=== PATIENT | female | born 1945 | race Caucasian/White ===

== ENCOUNTER → 2018-04-14 16:31 | Outpatient (CLI) | payer MEDICARE, OTHER, SELFPAY | PROVIDERS: PCP Emergency Medicine; Visit Provider Emergency Medicine | DX: R01.1 Cardiac murmur, unspecified (principal) | CPT/HCPCS: 93225; 93226 ==

== ENCOUNTER → 2018-04-24 07:31 | Outpatient (CLI) | payer MEDICARE, OTHER, SELFPAY ==
--- NOTE | 2018-04-24 07:32 | CA_ITS ---
PROCEDURE: 2-D M-mode and color Doppler study INDICATIONS FOR THE TEST: Chest pain COPD Heart MurmurX Tobacco Smoking Palpitations Fatigue Syncope Edema HypertensionXDiabetes Mellitus Rheumatic Fever SOB ARROYO Obesity Hyperlipidemia Family History HD Additional History PATIENT INFORMATION HEIGHT: 59 WEIGHT:163 GENDER: Female B/P:160/100 2-D/M-MODE INTERPRETATION: 2-D MEASUREMENTS OBSERVED VALUES IN CMS Right Ventricular Dimension (RVDd) 2.2 Interventricular Septum (Thickness)(IVsd) .7 Left Ventricular Internal Dimensions(LVIDd) 5.1 Left Ventricular Posterior Wall (Thickness)(LVPWd) .9 Aortic Root 2.6 Aortic Cusp Separation 1.7 Left Atrial Dimensions (LAD) 3.0 2D 1. Left atrium is mildly enlarged, left ventricle is normal size, mild qualitative concentric left ventricular hypertrophy, visually estimated ejection fraction 55% with no regional wall motion abnormality. 2. The right atrium and right ventricle are mildly enlarged with normal contractility. 3. The aortic valve is minimally thickened and fibrosed. 4. The mitral and tricuspid valvular grossly normal. 5. The pulmonic valve is poorly visualized. 6. No significant pericardial effusion noted. DOPPLER INTERROGATION: Doppler interrogation of the aortic, mitral and tricuspid valvular presence of mild mitral and tricuspid regurgitation, calculated right ventricular systolic pressure is 46 mmHg consistent with moderate pulmonary hypertension, grade 1 diastolic dysfunction seen with tissue Doppler evidence of raised left atrial pressure. CONCLUSION: 1. Mildly enlarged left atrium, normal left ventricular size, mild concentric left ventricular hypertrophy, visually estimated ejection fraction 55% with no regional wall motion abnormality, grade 1 diastolic dysfunction seen with tissue Doppler evidence of raised left atrial pressure. 2. Mild mitral and tricuspid regurgitation 3. No significant pericardial effusion noted.
--- NOTE | 2018-04-24 07:32 | CI_ITS ---
Cerebrovascular Exam Indications: 785.9 Bruit. IMPRESSIONS 1. The bilateral vertebral arteries are patent with normal antegrade flow. 2. Study suggests less than 20% stenosis involving the right internal carotid artery and the left internal carotid artery. 3. Tortuous carotid arteries seen bilaterally. History: Risk factors: Hypertension. Carotid duplex study. Complete study and Doppler flow study including spectral analysis, color and menchaca scale imaging. Location: Vascular laboratory. Patient status: Outpatient. Tables: Arterial flow: + +--------+--------+ Location V sys V ed + +--------+--------+ Right CCA - proximal 87.2cm/s 15.7cm/s + +--------+--------+ Right CCA - distal 54.2cm/s 17.3cm/s + +--------+--------+ Right ECA 66cm/s -------- + +--------+--------+ Right ICA - proximal 44.8cm/s 18.9cm/s + +--------+--------+ Right ICA - mid 59.7cm/s 25.1cm/s + +--------+--------+ Right ICA - distal 82.5cm/s 31.4cm/s + +--------+--------+ Right vertebral 40.9cm/s -------- + +--------+--------+ Left CCA - proximal 62.9cm/s 14.9cm/s + +--------+--------+ Left CCA - distal 49.5cm/s 18.1cm/s + +--------+--------+ Left ECA 72.3cm/s -------- + +--------+--------+ Left ICA - proximal 43.2cm/s 11.8cm/s + +--------+--------+ Left ICA - mid 69.9cm/s 21.2cm/s + +--------+--------+ Left ICA - distal 78.6cm/s 26.7cm/s + +--------+--------+ Left vertebral 43.2cm/s -------- + +--------+--------+ Velocity ratios: + + + + + + Right, V sys Right, V ed Left, V sys Left, V ed + + + + + + Max ICA/dist CCA 1.52 1.82 1.59 1.48 + + + + + + (Report amended ) Electronically signed by: Db Chakraborty [id number]
--- NOTE | 2018-04-24 07:32 | US_ITS ---
US gallbladder HISTORY: Upper abdominal pain ITS.REASON: abdominal pain ORDERING PHYSICIAN: Godwin Grajeda MD PATIENT AGE: 72 years Comparison: None FINDINGS: PANCREAS: Unremarkable. No obvious mass or abnormal fluid collection. No ductal dilatation LIVER: No focal liver lesions demonstrated. Homogeneous echogenicity. No intrahepatic biliary ductal dilatation evident RIGHT KIDNEY: Unremarkable. Normal size and echogenicity. No hydronephrosis GALLBLADDER: No gallstones, gallbladder wall thickening, pericholecystic fluid, or biliary dilatation. There are some low-level echoes in the gallbladder which could be due to small amount sludge or concentrated bile IMPRESSION: Few echoes within the gallbladder consistent with sludge or concentrated bile of questionable clinical significance otherwise Negative gallbladder/right upper quadrant ultrasound
== END ==
PROVIDERS: PCP Emergency Medicine; Visit Provider Emergency Medicine
DX: R09.89 Other specified symptoms and signs involving the circulatory and respiratory systems (principal); R10.9 Unspecified abdominal pain; R01.1 Cardiac murmur, unspecified
CPT/HCPCS: 76705; 93306; 93880

== ENCOUNTER → 2018-05-11 11:34 | Outpatient (CLI) | payer MEDICARE, OTHER, SELFPAY ==
--- NOTE | 2018-05-11 11:38 | NM_ITS ---
History and Indications: Hypertension, shortness of breath, syncope fatigue and abnormal EKG Procedure: Patient received a 0.4 mg of intravenous Lexiscan, resting heart rate was 55 bpm resting blood pressure 189/97, with Lexiscan maximum heart rate achieved was 102 bpm which is less than 85% of the maximum predicted heart rate and a blood pressure was 106/58. With Lexiscan patient complained of nausea and headache, lightheadedness requiring intravenous Aminophyllin to reverse symptoms. Electrocardiogram: Resting electrocardiogram showed sinus bradycardia, with Lexiscan there is less than 1.[address] segment depression noted from the baseline EKG. The EKG portion of the Lexiscan Myoview is nondiagnostic. Cardiac stress and resting SPECT images: Cardiac stress and rest SPECT images were obtained using technetium 99 Myoview 30.1 mCi stress and 10.3 mCi at rest. Gated SPECT further analysis of segmental wall motion and calculation of the ejection fraction also done. Cardiac stress and rest SPECT images show uniform myocardial activity without segmental perfusion abnormality, computer derived ejection fraction is over 65% with no regional wall motion abnormality, right ventricle is normal. Conclusion: 1. The EKG portion of the Lexiscan Myoview is nondiagnostic. 2. No scintigraphic evidence of reversible ischemia seen, computer derived ejection fraction is over 65% with no regional wall motion abnormality, right ventricle is normal size and contractility. 3. Normal Lexiscan Myoview study.
--- NOTE | 2018-05-11 11:38 | CT_ITS ---
CT heart w calcium score INDICATION: ITS.REASON: htn ORDERING PHYSICIAN: Jose Manuel Tijerina MD PATIENT AGE: 73 years COMPARISON: None TECHNIQUE: Axial images are obtained without contrast. Sagittal and coronal reformatted images are reviewed as well. All CT scans at the facility use one or more dose reduction, viz: automated exposure control, ma/kV adjustment per patient size (including targeted exams where dose is matched to indication, i.e. head), or iterative reconstruction technique. FINDINGS: Coronary artery calcium score is 17 indicating a mild plaque burden with moderate cardiovascular disease risk. There is minimal thickening of the pericardium. IMPRESSION: Coronary artery calcium score is 17 indicating a mild plaque burden with moderate cardiovascular disease risk
--- NOTE | 2018-05-11 15:03 | HMH.ITSHM ---
Current Home Medications as stated by this patient Cristine Tracy or pharmaceutical sales representative. []ASA LEVOTHYROXINE LOSARTAN
== END ==
PROVIDERS: PCP Emergency Medicine; Visit Provider Internal Medicine
DX: I27.20 Pulmonary hypertension, unspecified (principal); R06.09 Other forms of dyspnea; R53.83 Other fatigue; R94.31 Abnormal electrocardiogram [ECG] [EKG]; R09.89 Other specified symptoms and signs involving the circulatory and respiratory systems
CPT/HCPCS: 75571; 78452; 93017; A9502; J2785

== ENCOUNTER → 2018-08-08 07:28 | Outpatient (CLI) | payer MEDICARE, OTHER, SELFPAY ==
[2018-08-09 07:48] LABS: Basophils # 0.1 K/mm3 (0-0.2); Basophils % 1.1 % (0.1-2.0); Eosinophils # 0.1 K/mm3 (0.0-0.4); Eosinophils % 2.2 % (0.1-12.0); Hematocrit 46.3 % (37.0-47.0); Hemoglobin 14.4 g/dL (12.2-16.2); Lymphocytes # 2.3 K/mm3 (0.7-4.5); Lymphocytes % 37.7 % (10-50); Mean Corpuscular HGB Conc 31.1 g/dL (31.8-35.4); Mean Corpuscular Hemoglobin 30.1 pg (27.0-31.2); Mean Corpuscular Volume 96.8 fl (81-99); Mean Platelet Volume 9.5 fl (7.4-10.4); Monocytes # 0.4 K/mm3 (0.1-1.0); Monocytes % 5.9 % (1.7-9.3); Neutrophils # 3.2 K/mm3 (1.8-7.8); Neutrophils % 53.1 % (37.0-80.0); Platelet Count 322 K/mm3 (142-424); Red Blood Count 4.79 M/mm3 (4.20-5.40); Red Cell Distribution Width 13.2 % (11.5-17.5); White Blood Count 6.1 K/mm3 (4.8-10.8)
[2018-08-09 08:08] LABS: Alanine Aminotransferase 32 U/L (12-78); Albumin Level 4.1 gm/dL (3.4-5.0); Albumin/Globulin Ratio 1.1 (1.1-1.8); Alkaline Phosphatase 107 U/L (46-116); Anion Gap 12.4 mEq/L (5-15); Aspartate Amino Transferase 21 U/L (15-37); Bilirubin,Total 0.5 mg/dL (0.2-1.0); Blood Urea Nitrogen 24 mg/dL (7-18); Calcium 10.6 mg/dL (8.5-10.1); Carbon Dioxide 31 mmol/L (21.0-32.0); Chloride 102 mmol/L (98-107); Chol/HDL Ratio 3.4 (1-3.5); Cholesterol 182 mg/dL (140-200); Estimated Glomerular Filt Rate 82 ml/min (>60); Free T4 (Free Thyroxine) 1.33 ng/dl (0.76-1.46); GFR (African American) 100 ML/MIN (>60); Globulin 3.6 gm/dl (1.3-3.2); Glucose 98 mg/dL (74-106); HDL Cholesterol 53 mg/dL (29-89); LDL Cholesterol 112 mg/dL (0-130); Potassium 4.4 mmoL/L (3.5-5.1); Sodium 141 mmol/L (136-145); Thyroid Stimulating Hormone 1.07 uIU/ml (0.358-3.740); Total Protein,Serum 7.7 gm/dL (6.4-8.2); Triglycerides 85 mg/dL (30-200); VLDL Cholesterol 17 mg/dL (0-40)
== END ==
PROVIDERS: Visit Provider Emergency Medicine
DX: I10 Essential (primary) hypertension (principal)
CPT/HCPCS: 80053; 80061; 84439; 84443; 85025

== ENCOUNTER → 2019-05-14 13:27 | Outpatient (CLI) | payer MEDICARE, OTHER, SELFPAY ==
[2019-05-14 14:00] LABS: Alanine Aminotransferase 32 U/L (12-78); Albumin Level 3.7 gm/dL (3.4-5.0); Albumin/Globulin Ratio 1.1 (1.1-1.8); Alkaline Phosphatase 99 U/L (46-116); Anion Gap 10.8 mEq/L (5-15); Aspartate Amino Transferase 29 U/L (15-37); Bilirubin,Total 0.5 mg/dL (0.2-1.0); Blood Urea Nitrogen 22 mg/dL (7-18); Calcium 10.3 mg/dL (8.5-10.1); Carbon Dioxide 29 mmol/L (21.0-32.0); Chloride 103 mmol/L (98-107); Cholesterol 168 mg/dL (140-200); Creatinine,Serum 0.66 mg/dL (0.55-1.02); Estimated Glomerular Filt Rate 88 ml/min (>60); GFR (African American) 106 ML/MIN (>60); Globulin 3.5 gm/dl (1.3-3.2); Glucose 91 mg/dL (74-106); HDL Cholesterol 56 mg/dL (29-89); LDL Cholesterol 98 mg/dL (0-130); Potassium 3.8 mmoL/L (3.5-5.1); Sodium 139 mmol/L (136-145); T4 (Thyroxine) 9.2 ug/dl (4.7-13.3); Thyroid Stimulating Hormone 1.23 uIU/ml (0.358-3.740); Total Protein,Serum 7.2 gm/dL (6.4-8.2); Triglycerides 69 mg/dL (30-200); VLDL Cholesterol 14 mg/dL (0-40)
[2019-05-14 14:31] LABS: Basophils # 0.1 K/mm3 (0-0.2); Basophils % 0.7 % (0.1-2.0); Eosinophils # 0.1 K/mm3 (0.0-0.4); Eosinophils % 2.3 % (0.1-12.0); Hematocrit 43.3 % (37.0-47.0); Lymphocytes # 2.4 K/mm3 (0.7-4.5); Lymphocytes % 38.8 % (10-50); Mean Corpuscular HGB Conc 32.3 g/dL (31.8-35.4); Mean Corpuscular Hemoglobin 30.8 pg (27.0-31.2); Mean Corpuscular Volume 95.1 fl (81-99); Mean Platelet Volume 9.2 fl (7.4-10.4); Monocytes # 0.4 K/mm3 (0.1-1.0); Monocytes % 6.9 % (1.7-9.3); Neutrophils # 3.2 K/mm3 (1.8-7.8); Neutrophils % 51.3 % (37.0-80.0); Platelet Count 292 K/mm3 (142-424); Red Blood Count 4.55 M/mm3 (4.20-5.40); Red Cell Distribution Width 12.8 % (11.5-17.5); White Blood Count 6.3 K/mm3 (4.8-10.8)
== END ==
PROVIDERS: Visit Provider Emergency Medicine
DX: E07.9 Disorder of thyroid, unspecified (principal); I10 Essential (primary) hypertension; E66.9 Obesity, unspecified; M25.511 Pain in right shoulder
CPT/HCPCS: 80053; 80061; 84436; 84443; 85025

== ENCOUNTER → 2019-11-22 15:46 | Outpatient (CLI) | payer MEDICARE, OTHER, SELFPAY ==
[2019-11-22 16:06] LABS: Anion Gap 9.8 mEq/L (5-15); Blood Urea Nitrogen 23 mg/dl (7-17); Calcium 11.2 mg/dl (8.4-10.2); Carbon Dioxide 30 mmol/L (22.0-30.0); Chloride 103 mmol/L (98-107); Estimated Glomerular Filt Rate 82 ml/min (>60); GFR (African American) 99 ML/MIN (>60); Glucose 100 mg/dl (74-100); Potassium 4.8 mmoL/L (3.5-5.1); Sodium 138 mmol/L (136-145)
== END ==
PROVIDERS: Visit Provider Urology
DX: I10 Essential (primary) hypertension (principal); R25.2 Cramp and spasm
CPT/HCPCS: 80048

== ENCOUNTER → 2020-10-28 13:46 | Outpatient (CLI) | payer MEDICARE, SELFPAY ==
[2020-10-28 13:59] LABS: Chloride 102 mmol/L (98-107); Potassium 4.3 mmoL/L (3.5-5.1)
[2020-10-28 14:01] LABS: Alanine Aminotransferase 24 U/L (12-78); Aspartate Amino Transferase 36 U/L (14-36); Blood Urea Nitrogen 28 mg/dl (7-17); Carbon Dioxide 28 mmol/L (22.0-30.0); Estimated Glomerular Filt Rate 61 ml/min (>60); GFR (African American) 74 ML/MIN (>60)
[2020-10-28 14:02] LABS: Albumin Level 4.9 g/dl (3.5-5.0); Albumin/Globulin Ratio 1.4 (1.1-1.8); Alkaline Phosphatase 117 U/L (38-126); Bilirubin,Total 0.7 mg/dl (0.2-1.3); Calcium 11.4 mg/dl (8.4-10.2); Chol/HDL Ratio 4.1 (1-3.5); Cholesterol 212 mg/dl (140-200); Globulin 3.4 g/dL (1.3-3.2); Glucose 101 mg/dl (74-100); HDL Cholesterol 52 mg/dl (40-60); Total Protein,Serum 8.3 g/dl (6.3-8.2); Triglycerides 96 mg/dl (30-150); VLDL Cholesterol 19 mg/dL (0-40)
[2020-10-28 14:13] LABS: Direct LDL Cholesterol 110.78 mg/dL (100-129)
[2020-10-28 14:18] LABS: 25-OH Vitamin D, Total 27.4 ng/mL (30-100)
[2020-10-28 14:19] LABS: Free T4 (Free Thyroxine) 2.05 ng/dl (0.78-2.19)
[2020-10-28 14:30] LABS: Basophils # 0.1 K/mm3 (0-0.2); Basophils % 0.9 % (0.1-2.0); Eosinophils # 0.1 K/mm3 (0.0-0.4); Eosinophils % 1.7 % (0.1-12.0); Hematocrit 43.9 % (37.0-47.0); Hemoglobin 14.5 g/dL (12.2-16.2); Lymphocytes # 2.5 K/mm3 (0.7-4.5); Lymphocytes % 36.3 % (10-50); Mean Corpuscular Hemoglobin 31.1 pg (27.0-31.2); Mean Corpuscular Volume 94.1 fl (81-99); Mean Platelet Volume 9.2 fl (7.4-10.4); Monocytes # 0.5 K/mm3 (0.1-1.0); Neutrophils # 3.6 K/mm3 (1.8-7.8); Platelet Count 323 K/mm3 (142-424); Red Blood Count 4.67 M/mm3 (4.20-5.40); Red Cell Distribution Width 12.9 % (11.5-17.5); White Blood Count 6.7 K/mm3 (4.8-10.8)
[2020-10-28 17:05] LABS: Anion Gap 13.3 mEq/L (5-15); Sodium 139 mmol/L (136-145)
== END ==
PROVIDERS: Visit Provider Emergency Medicine
DX: E66.9 Obesity, unspecified (principal); R53.83 Other fatigue; E55.9 Vitamin D deficiency, unspecified; Z68.33 Body mass index [BMI] 33.0-33.9, adult
CPT/HCPCS: 80053; 80061; 82306; 84439; 84443; 85025

== ENCOUNTER → 2020-10-30 11:06 | Outpatient (CLI) | payer MEDICARE, SELFPAY ==
--- NOTE | 2020-10-30 11:14 | XR_ITS ---
PROCEDURE: XR CERVICAL SPINE 5V CLINICAL INDICATION: neck pain COMPARISON: No exams were available for comparison FINDINGS: There is normal alignment. No fracture or dislocation is evident. Degenerative disc disease is present at C5-C6 and C6-C7. There is mild degenerative disc disease with slight decrease in the disc space at C2-C3. There is mild foraminal narrowing on the right at C3-C4 and on the left at C5-C6 and to lesser degree at C6-C7. Facet hypertrophic changes are present from C3-C5. Calcification is present posterior to C5 and C6 consistent with nuchal ligament calcification. IMPRESSION: Degenerative changes as described above. Dictated by: Db Chakraborty MD 10/30/2020 12:45 Db Chakraborty MD in [facility] 10/30/2020 12:45
== END ==
PROVIDERS: PCP Emergency Medicine; Visit Provider Emergency Medicine
DX: M54.2 Cervicalgia (principal)
CPT/HCPCS: 72050

== ENCOUNTER → 2020-11-12 09:41 | Outpatient (CLI) | payer MEDICARE, SELFPAY ==
--- NOTE | 2020-11-12 09:45 | XR_ITS ---
PROCEDURE: XR DEXA AXIAL SKELETON CLINICAL HISTORY: elevated calcium COMPARISON: No exams were available for comparison FINDINGS: The right hip BMD is 0.795 grams/centimeter squared with a T-score of -1.2. The left hip BMD is 0.836 grams/centimeter square with a T-score of -0.9. The lumbar spine BMD is 1.078 grams/centimeters square with a T-score of 0.3. IMPRESSION: This patient is considered osteopenic according to the World Health Organization criteria. Bone density is between 10 and 25 percent below young normal. Fracture risk is moderate. Treatment is advised. Based on these results a follow-up exam is recommended in 2 year. Dictated by: Ching Gonzalez 11/12/2020 16:42 Ching Gonzalez in [facility] 11/12/2020 16:42
== END ==
PROVIDERS: PCP Emergency Medicine; Visit Provider Emergency Medicine
DX: M81.0 Age-related osteoporosis without current pathological fracture (principal); Z91.89 Other specified personal risk factors, not elsewhere classified
CPT/HCPCS: 77080

== ENCOUNTER → 2020-12-11 08:53 | Outpatient (POV) | payer MEDICARE, SELFPAY ==
[2020-12-11 09:40] VITALS: BP 172/110; PULSE 71; RESP 18; O2SAT 96; BMI 33.7
--- NOTE | 2020-12-11 11:23 | HMH.PMCON ---
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 She says the pain is tolerable with Tylenol and ibuprofen. She does not want to undergo injective therapy at this time. She does understand that she is now established within our system and if her pain does worsen she is a candidate for injective therapy. She would like to defer at this time. She has been instructed to contact clinic if she has any concerns in the future. Patient has been instructed to contact the clinic with any concerns before the next appointment. Dr. Adams has reviewed this note and agrees with this plan of care. This note was dictated using voice recognition software and make contain errors or omissions. HPI - Data of Consult Patient: new to practice Consult date: 12/11/20 Requesting Physician: Cookie Bravo APRN Primary Care Provider: Godwin Grajeda MD - Consult Narrative Reason for consult: Neck pain History of present illness: Ms. Tracy is a 75 year old female who presents today for consultation for chronic neck pain. She says that her pain is primarily on the right side and behind her right ear. She reports to be having pain that is worse with turning her head. She says raising her head up and down also causes her to have worsening pain. She denies any headaches or dizziness with her neck pain. She says the pain started in the fall 2019. She felt that she strained her neck at that time. She says the pain has intermittently continued. She says the pain is tolerable with oral medications of Tylenol or ibuprofen. She rates her pain a 3 out of 10 today. Patient says she is not interested in injective therapy. CC: Cookie Bravo APRN [facility] History I have reviewed the patient's past medical history: Yes Medical History: Reports:: Hypertension Denies:: Chronic Obstructive Pulmonary Disease (COPD), Diabetes Mellitus Type 1, Gastroesophageal Reflux Disease(GERD), Internal Pacemaker, Osteoporosis, Seizures *Have you ever received a pneumonia vaccine?: Yes *Have you received a flu vaccine this season?: Yes Other Medical History: Reports: Hypothyroidism, Thyroid Disease. Denies: Osteoporosis Other Surgeries: Yes: Appendectomy, Cardiac Catheterization, Other (basil removed from eye lid,eye lids trimmed). No: Pacemaker Amputation: No Fractures: No - *Social History Smoking Status: Never smoker Alcohol Intake: never Substance Use Type: denies use *Occupational Status:: unemployed *Travel in the last 8 weeks: None Family Hx:: Diabetes Review of Systems - Review of Systems Review of Systems General: No recent weight changes, no fever, no sleep disturbances Respiratory: No cough, no shortness of air, no recurring pulmonary infections Cardiovascular/peripheral vascular: No chest pain, no palpitations, no edema, no shortness of breath Gastrointestinal: No new onset incontinence, normal bowel movements reported Genitourinary: No new onset incontinence Musculoskeletal: Intermittent neck pain with radiation behind right ear, pain worse with movement of head Psychiatric: Normal mood/affect Neurological: [Denies weakness in extremities], [denies balance issues] Meds Home Medications Medication Instructions Recorded Confirmed Type aspirin 81 mg tablet,delayed 81 mg PO .MWF tab 05/16/20 06/10/20 History release levothyroxine 100 mcg tablet See Rx Instructions .ROUTE 10/09/20 Rx .COMPLEX #90 tab losartan 100 See Rx Instructions .ROUTE 10/09/20 Rx mg-hydrochlorothiazide 12.5 mg .COMPLEX #90 tab tablet meloxicam 7.
== END ==
PROVIDERS: PCP Emergency Medicine; Visit Provider Clinical Nurse Specialist Family Health
DX: M54.81 Occipital neuralgia (principal); M47.812 Spondylosis without myelopathy or radiculopathy, cervical region
CPT/HCPCS: 99202; G0463

== ENCOUNTER → 2021-07-29 12:15 | Outpatient (CLI) | payer MEDICARE, SELFPAY ==
[2021-07-29 13:27] LABS: Basophils # 0.1 K/mm3 (0-0.2); Eosinophils # 0.2 K/mm3 (0.0-0.4); Eosinophils % 1.9 % (0.1-12.0); Hematocrit 45.8 % (37.0-47.0); Hemoglobin 14.9 g/dL (12.2-16.2); Lymphocytes # 2.3 K/mm3 (0.7-4.5); Lymphocytes % 27.7 % (10-50); Mean Corpuscular HGB Conc 32.6 g/dL (31.8-35.4); Mean Corpuscular Hemoglobin 31.2 pg (27.0-31.2); Mean Corpuscular Volume 95.8 fl (81-99); Mean Platelet Volume 8.6 fl (7.4-10.4); Monocytes # 0.5 K/mm3 (0.1-1.0); Monocytes % 6.1 % (1.7-9.3); Neutrophils # 5.2 K/mm3 (1.8-7.8); Neutrophils % 63.3 % (37.0-80.0); Platelet Count 339 K/mm3 (142-424); Red Blood Count 4.78 M/mm3 (4.20-5.40); Red Cell Distribution Width 13.1 % (11.5-17.5); White Blood Count 8.3 K/mm3 (4.8-10.8)
[2021-07-29 14:11] LABS: Alanine Aminotransferase 33 U/L (12-78); Albumin Level 4.8 g/dl (3.5-5.0); Albumin/Globulin Ratio 1.5 (1.1-1.8); Alkaline Phosphatase 105 U/L (38-126); Anion Gap 9.3 mEq/L (5-15); Aspartate Amino Transferase 41 U/L (14-36); Bilirubin,Total 0.7 mg/dl (0.2-1.3); Blood Urea Nitrogen 26 mg/dl (7-17); Calcium 11.3 mg/dl (8.4-10.2); Carbon Dioxide 34 mmol/L (22.0-30.0); Chloride 102 mmol/L (98-107); Chol/HDL Ratio 2.5 (1-3.5); Cholesterol 133 mg/dl (140-200); Estimated Glomerular Filt Rate 61 ml/min (>60); GFR (African American) 74 ML/MIN (>60); Globulin 3.1 g/dL (1.3-3.2); Glucose 90 mg/dl (74-100); HDL Cholesterol 54 mg/dl (40-60); Potassium 4.3 mmoL/L (3.5-5.1); Sodium 141 mmol/L (136-145); Total Protein,Serum 7.9 g/dl (6.3-8.2); Triglycerides 64 mg/dl (30-150); VLDL Cholesterol 13 mg/dL (0-40)
[2021-07-29 14:22] LABS: Direct LDL Cholesterol 58.05 mg/dL (100-129)
[2021-07-29 14:30] LABS: Free T4 (Free Thyroxine) 1.15 ng/dl (0.78-2.19)
[2021-07-29 14:44] LABS: Thyroid Stimulating Hormone 1.74 uIU/mL (0.465-4.68)
[2021-07-29 14:47] LABS: 25-OH Vitamin D, Total 111 ng/mL (30-100)
== END ==
PROVIDERS: PCP Emergency Medicine; Visit Provider Emergency Medicine
DX: E55.9 Vitamin D deficiency, unspecified (principal); E03.9 Hypothyroidism, unspecified; R53.83 Other fatigue; K59.00 Constipation, unspecified
CPT/HCPCS: 36415; 80053; 80061; 82306; 84439; 84443; 85025

== ENCOUNTER → 2021-07-31 12:27 | Outpatient (CLI) | payer MEDICARE, SELFPAY ==
[2021-07-31 14:07] LABS: Intact Parathyroid Hormone 179.8 pg/mL (7.5-53.5)
== END ==
PROVIDERS: Visit Provider Emergency Medicine
DX: E83.52 Hypercalcemia (principal)
CPT/HCPCS: 36415; 82330; 83970

== ENCOUNTER → 2021-12-01 09:37 | Outpatient (CLI) | payer MEDICARE, SELFPAY ==
[2021-12-01 10:11] LABS: Basophils # 0.1 K/mm3 (0-0.2); Basophils % 1.2 % (0.1-2.0); Eosinophils # 0.1 K/mm3 (0.0-0.4); Eosinophils % 1.7 % (0.1-12.0); Hematocrit 41.4 % (37.0-47.0); Hemoglobin 13.7 g/dL (12.2-16.2); Lymphocytes # 2.3 K/mm3 (0.7-4.5); Lymphocytes % 34.4 % (10-50); Mean Corpuscular HGB Conc 33.2 g/dL (31.8-35.4); Mean Corpuscular Hemoglobin 31.1 pg (27.0-31.2); Mean Corpuscular Volume 93.7 fl (81-99); Mean Platelet Volume 8.9 fl (7.4-10.4); Monocytes # 0.4 K/mm3 (0.1-1.0); Monocytes % 5.6 % (1.7-9.3); Neutrophils # 3.7 K/mm3 (1.8-7.8); Platelet Count 258 K/mm3 (142-424); Red Blood Count 4.42 M/mm3 (4.20-5.40); Red Cell Distribution Width 13.2 % (11.5-17.5); White Blood Count 6.5 K/mm3 (4.8-10.8)
[2021-12-01 10:38] LABS: Alanine Aminotransferase 29 U/L (12-78); Albumin Level 3.9 g/dl (3.5-5.0); Albumin/Globulin Ratio 1.4 (1.1-1.8); Alkaline Phosphatase 97 U/L (38-126); Anion Gap 10.4 mEq/L (5-15); Aspartate Amino Transferase 38 U/L (14-36); Bilirubin,Total 0.4 mg/dl (0.2-1.3); Blood Urea Nitrogen 22 mg/dl (7-17); Calcium 10.3 mg/dl (8.4-10.2); Carbon Dioxide 31 mmol/L (22.0-30.0); Chloride 104 mmol/L (98-107); Estimated Glomerular Filt Rate 61 ml/min (>60); GFR (African American) 74 ML/MIN (>60); Globulin 2.7 g/dL (1.3-3.2); Glucose 95 mg/dl (74-100); Potassium 4.4 mmoL/L (3.5-5.1); Sodium 141 mmol/L (136-145); Total Protein,Serum 6.6 g/dl (6.3-8.2)
== END ==
PROVIDERS: Visit Provider Otolaryngology
DX: Z01.812 Encounter for preprocedural laboratory examination (principal); I10 Essential (primary) hypertension
CPT/HCPCS: 36415; 80053; 85025

== ENCOUNTER → 2022-04-19 09:28 | Outpatient (CLI) | payer MEDICARE, SELFPAY ==
[2022-04-19 11:17] LABS: Intact Parathyroid Hormone 126.6 pg/mL (7.5-53.5)
[2022-04-19 11:22] LABS: T4 (Thyroxine) 11.3 ug/dl (5.53-11.0)
[2022-04-19 11:35] LABS: Thyroid Stimulating Hormone 0.26 uIU/mL (0.465-4.68)
[2022-04-20 09:53] LABS: Triiodothyronine (T3) Total 130 ng/dL (71-180)
== END ==
PROVIDERS: PCP Emergency Medicine; Visit Provider Otolaryngology
DX: E04.1 Nontoxic single thyroid nodule (principal)
CPT/HCPCS: 36415; 83970; 84436; 84443; 84480

== ENCOUNTER → 2022-05-13 09:40 | Outpatient (CLI) | payer MEDICARE, SELFPAY ==
[2022-05-13 11:13] LABS: Thyroid Stimulating Hormone 0.48 uIU/mL (0.465-4.68)
[2022-05-14 08:18] LABS: Triiodothyronine (T3) Free 2.8 pg/mL (2.0-4.4)
== END ==
PROVIDERS: PCP Emergency Medicine; Visit Provider Otolaryngology
DX: E05.90 Thyrotoxicosis, unspecified without thyrotoxic crisis or storm (principal)
CPT/HCPCS: 36415; 84439; 84443; 84481

== ENCOUNTER → 2022-08-17 15:32 | Outpatient (CLI) | payer MEDICARE, SELFPAY ==
--- NOTE | 2022-08-17 15:32 | MM_ITS ---
PROCEDURE INFORMATION: Exam: Bilateral Screening 3D Mammography Exam date and time: 08/17/2022 3:26 PM Age: 77 years old Clinical indication: Baseline. No family history of breast cancer. TECHNIQUE: Imaging protocol: Bilateral Screening tomosynthesis and 2D mammography including computer-aided detection (CAD) when performed. COMPARISON: No relevant prior studies available. If prior mammograms are provided, I am happy to add an addendum. FINDINGS: MAMMOGRAPHY: Breast composition: There are scattered areas of fibroglandular density. Mass: None. Architectural distortion: None. Calcifications: No suspicious calcifications. Asymmetric density: None. Skin thickening: None. Axillary adenopathy: None. IMPRESSION: No mammographic evidence of malignancy. Annual screening is recommended unless otherwise clinically indicated. ASSESSMENT: BI-RADS Category 1: Negative
== END ==
PROVIDERS: PCP Emergency Medicine; Visit Provider Emergency Medicine
DX: Z12.31 Encounter for screening mammogram for malignant neoplasm of breast (principal)
CPT/HCPCS: 77063; 77067

== ENCOUNTER → 2022-11-19 09:31 | Outpatient (CLI) | payer MEDICARE, SELFPAY ==
[2022-11-19 11:59] LABS: Thyroid Stimulating Hormone 0.05 uIU/mL (0.465-4.68)
[2022-11-20 12:10] LABS: Triiodothyronine (T3) Total 151 ng/dL (71-180)
== END ==
PROVIDERS: PCP Emergency Medicine; Visit Provider Otolaryngology
DX: E03.9 Hypothyroidism, unspecified (principal)
CPT/HCPCS: 36415; 84443; 84480

== ENCOUNTER 2023-01-03 10:43 | Emergency (ER) | payer MEDICARE, OTHER, SELFPAY ==
[2023-01-03 10:43] VITALS: BP 182/88; PULSE 61; RESP 16; TEMP 37; O2SAT 100; BMI 34.2
[2023-01-03 11:01] VITALS: BP 192/82; PULSE 54; RESP 18; O2SAT 100
--- NOTE | 2023-01-03 11:17 | PC.NURSE ---
DR. LOCO AT BS
--- NOTE | 2023-01-03 11:19 | CT_ITS ---
FINAL REPORT TECHNIQUE: Thin section axial CT with IV contrast supplemented with multiplanar reconstruction under CT angiogram protocol. 3-D reconstructions were performed. This study was performed with techniques to keep radiation doses as low as reasonably achievable (ALARA). Individualized dose reduction techniques using automated exposure control or adjustment of mA and/or kV according to the patient''s size were employed. CLINICAL HISTORY: diziness FINDINGS: The distal vertebral, basilar and distal internal carotid arteries have an unremarkable appearance. No aneurysm is seen. Major intracranial vessels are patent without significant stenosis. IMPRESSION: Unremarkable intracranial CT angiography. Reviewed, Interpreted and Dictated by Rogelio Vega III, MD Transcribed by Heidi Obando Authenticated and [facility]
--- NOTE | 2023-01-03 11:19 | CT_ITS ---
FINAL REPORT CLINICAL HISTORY: diziness COMPARISON: None FINDINGS: Axial images of the head were obtained without contrast. Coronal and sagittal reformatted images were also obtained. This study was performed with techniques to keep radiation doses as low as reasonably achievable (ALARA). Individualized dose reduction techniques using automated exposure control or adjustment of mA and/or kV according to the patient''s size were employed. There is generalized age-appropriate atrophy. Periventricular low-attenuation areas are seen consistent with mild chronic ischemic changes. There is no evidence of intracranial hemorrhage or mass. There is no evidence of acute infarct. There is no evidence of shift of the midline structures. No skull abnormality is seen on the bone window images. Mild mucosal thickening is present in the paranasal sinuses. IMPRESSION: Atrophy and mild periventricular chronic ischemic changes. No acute intracranial abnormality identified. Reviewed, Interpreted and Dictated by Rogelio Vega III, MD Transcribed by Heidi Obando Authenticated and [facility]
--- NOTE | 2023-01-03 11:19 | CT_ITS ---
FINAL REPORT TECHNIQUE: Thin section axial CT with IV contrast supplemented with multiplanar reconstruction under CT angiogram protocol. This study was performed with techniques to keep radiation doses as low as reasonably achievable (ALARA). Individualized dose reduction techniques using automated exposure control or adjustment of mA and/or kV according to the patient''s size were employed. NASCET criteria was utilized during interpretation. CLINICAL HISTORY: diziness FINDINGS: Aortic arch: Arch shows no significant narrowing. Great vessel origins are widely patent. Right carotid: No significant stenosis is seen of the cervical common or internal carotid artery. Left carotid: No significant stenosis is seen of the cervical common or internal carotid artery. Vertebral: The vertebral arteries are codominant. No significant stenosis is present. IMPRESSION: Unremarkable CT angiography of the neck. Reviewed, Interpreted and Dictated by Rogelio Vega III, MD Transcribed by Heidi Obando Authenticated and [facility]
--- NOTE | 2023-01-03 11:20 | HMH.EDGENADL ---
Discharge Plan Disposition Patient Disposition: Home, Self-Care Chief Complaint: Dizziness Prescriptions Prescriptions: No Action alendronate 35 mg tablet See Rx Instructions .ROUTE .COMPLEX Dose Instruction: TAKE 1 TABLET BY MOUTH ONCE WEEKLY ON SAME DAY EACH WEEK DIRECTED Rx Instructions: TAKE 1 TABLET BY MOUTH ONCE WEEKLY ON SAME DAY EACH WEEK DIRECTED levothyroxine 125 mcg tablet 125 mcg PO DAILY Patient Comments: TAKE 1 TABLET BY MOUTH ONCE DAILY atorvastatin [Lipitor] 40 mg tablet 40 mg PO HS Qty: 30 5RF losartan-hydrochlorothiazide 100-12.5 mg tablet See Rx Instructions .ROUTE .COMPLEX Qty: 90 3RF Dose Instruction: Take 1 tablet by mouth once daily Rx Instructions: Take 1 tablet by mouth once daily Referrals Follow up/Referrals: Godwin Grajeda MD [Primary Care Provider] - See instructions Activity Restrictions/Add. Instructions Additional Instructions/Restrictions: Your emergency work-up today was largely unremarkable other than sinus bradycardia. You may follow-up with Dr. Tijerina to discuss this further or with Dr. Grjaeda within the next week. Return with any worsening neurologic symptoms any exertional symptoms shortness of breath or chest pain. Please keep yourself well-hydrated as discussed. Clinical Impressions Clinical Impression: Light headed, Bradycardia, sinus Discharge ED Provider: Yolette Noel General Adult HPI General Chief complaint: Dizziness Stated complaint: Lightheaded, phys ref Time Seen by Provider: 01/03/23 11:07 Mode of Arrival: Ambulatory Source of Information: Patient Limitations: No Limitations Description of Symptoms (Recalled from ER Triage Doc. by RN): pt to the ED from PCP with intermitten light headedness since last tuesday. pt reports she had an episode last weekend and felt back to baseline t/o the week but reports it returned yesterday morning. pt stated the dizziness worsens when she is moving or has her eyes opens but reports relief when she is resting and closes her eyes. pt denies any other pain or complaints at this time History of Present Illness HPI narrative: Patient is a 77-year-old today presenting with lightheadedness. She states this is not dizziness and she has no rotary sensation associate with this. She does not feel like she is going to pass out but does state that this gets worse with positional change going from lying to sitting to standing. She denies any nausea vomiting or diarrhea or changes in her fluid intake or urine output. She denies any significant changes in her coordination or vision. No head or neck pain. She went to Dr. Grajeda's office who referred her to the emergency department today. Related Data Home Medications Medication Instructions Recorded Confirmed alendronate 35 mg tablet See Rx Instructions .Route .COMPLEX 01/03/23 levothyroxine 125 mcg tablet 125 mcg PO DAILY 01/03/23 01/03/23 Previous Rx's Medication Instructions Recorded atorvastatin 40 mg tablet (Lipitor) 40 mg PO HS #30 tabs 07/27/22 losartan 100 See Rx Instructions .Route 10/28/22 mg-hydrochlorothiazide 12.5 mg .COMPLEX #90 tabs tablet Allergies Allergy/AdvReac Type Severity Reaction Status Date / Time No Known Allergies Allergy Verified 01/03/23 09:53 [facility] Disclaimer: The information contained in this section may have been updated after the patient was seen, as this information can be updated by other users. Medical History Diastolic dysfunction Stenosis of carotid artery Surgical History S/P removal of parathyroid gland Social History Smoking Status: Never smoker alcohol intake: never substance use type: denies use current occupational status: unemployed Travel in the last 8 weeks: None ROS Obtain
[2023-01-03 11:32] LABS: Basophils # 0.1 K/mm3 (0-0.2); Basophils % 0.6 % (0.1-2.0); Eosinophils # 0.1 K/mm3 (0.0-0.4); Eosinophils % 1.8 % (0.1-12.0); Hematocrit 42.6 % (37.0-47.0); Hemoglobin 13.7 g/dL (12.2-16.2); Lymphocytes # 2.3 K/mm3 (0.7-4.5); Lymphocytes % 29.1 % (10-50); Mean Corpuscular HGB Conc 32.2 g/dL (31.8-35.4); Mean Corpuscular Hemoglobin 29.5 pg (27.0-31.2); Mean Corpuscular Volume 91.7 fl (81-99); Mean Platelet Volume 8.4 fl (7.4-10.4); Monocytes # 0.6 K/mm3 (0.1-1.0); Monocytes % 7.1 % (1.7-9.3); Neutrophils # 4.8 K/mm3 (1.8-7.8); Neutrophils % 61.4 % (37.0-80.0); Platelet Count 265 K/mm3 (142-424); Red Blood Count 4.65 M/mm3 (4.20-5.40); Red Cell Distribution Width 12.3 % (11.5-17.5); White Blood Count 7.8 K/mm3 (4.8-10.8)
[2023-01-03 11:42] LABS: Chloride 103 mmol/L (98-107); Potassium 3.6 mmoL/L (3.5-5.1); Sodium 144 mmol/L (136-145)
[2023-01-03 11:44] LABS: Alanine Aminotransferase 35 U/L (12-78); Aspartate Amino Transferase 43 U/L (14-36); Blood Urea Nitrogen 24 mg/dl (7-17); Creatinine Clearance Estimated 56 mL/min (50-200); Estimated Glomerular Filt Rate 70 ml/min (>60); GFR (African American) 84 ML/MIN (>60)
[2023-01-03 11:45] LABS: Albumin Level 4.2 g/dl (3.5-5.0); Albumin/Globulin Ratio 1.2 (1.1-1.8); Alkaline Phosphatase 130 U/L (38-126); Anion Gap 11.6 mEq/L (5-15); Bilirubin,Total 0.4 mg/dl (0.2-1.3); Calcium 9.6 mg/dl (8.4-10.2); Carbon Dioxide 33 mmol/L (22.0-30.0); Globulin 3.5 g/dL (1.3-3.2); Glucose 70 mg/dl (74-100); Total Protein,Serum 7.7 g/dl (6.3-8.2)
--- NOTE | 2023-01-03 12:08 | PC.NURSE ---
PT RETURNED FROM CT
--- NOTE | 2023-01-03 12:08 | PC.NURSE ---
PT ARRIVED BACK TO ROOM FROM RAD
--- NOTE | 2023-01-03 12:15 | ECG_ITS ---
APPROVED REPORT Exam: Resting ECG HR:49 bpm ECG Measurements Heart Rate 49 AXES TN 179 P 51 QRSd 121 QRS 24 QT 462 T 28 QTc 431 Conclusion SINUS BRADYCARDIA WITH OCCASIONAL SUPRAVENTRICULAR PREMATURE COMPLEXES POSSIBLE RIGHT VENTRICULAR CONDUCTION DELAY [RSR (QR) IN V1/V2] BORDERLINE ECG UNCONFIRMED REPORT Electronically signed by : Soto Siddiqi MD 01/03/2023 19:34:44
--- NOTE | 2023-01-03 12:17 | PC.NURSE ---
PT HAS NO COMPLAINTS AT THIS TIME, FAMILY AT BS
[2023-01-03 12:30] VITALS: BP 138/76; PULSE 51; RESP 20; O2SAT 98
--- NOTE | 2023-01-03 12:40 | PC.NURSE ---
UNHOOKED PT TO BE ABLE TO WALK TO RESTROOM
[2023-01-03 12:44] VITALS: BP 187/78; PULSE 52; RESP 18; O2SAT 97
[2023-01-03 13:01] VITALS: BP 166/65; PULSE 45; O2SAT 98
[2023-01-03 13:40] VITALS: BP 166/65; PULSE 45; RESP 18; TEMP 37; O2SAT 98
== END 2023-01-03 13:45 | disposition home or self-care (01) ==
PROVIDERS: Emergency Provider Student in an Organized Health Care Education/Training Program; PCP Emergency Medicine
DX: R42 Dizziness and giddiness (principal); R00.1 Bradycardia, unspecified; I65.29 Occlusion and stenosis of unspecified carotid artery
CPT/HCPCS: 70450; 70496; 70498; 80053; 85025; 93005; 96360; 99285; Q9967

== ENCOUNTER → 2023-01-26 16:39 | Outpatient (CLI) | payer MEDICARE, SELFPAY ==
[2023-01-26 12:33] LABS: Basophils # 0.1 K/mm3 (0-0.2); Basophils % 0.6 % (0.1-2.0); Eosinophils # 0.1 K/mm3 (0.0-0.4); Eosinophils % 1.7 % (0.1-12.0); Hematocrit 43.3 % (37.0-47.0); Hemoglobin 13.7 g/dL (12.2-16.2); Lymphocytes # 2.2 K/mm3 (0.7-4.5); Lymphocytes % 27.7 % (10-50); Mean Corpuscular HGB Conc 31.7 g/dL (31.8-35.4); Mean Corpuscular Hemoglobin 29.3 pg (27.0-31.2); Mean Corpuscular Volume 92.4 fl (81-99); Monocytes # 0.6 K/mm3 (0.1-1.0); Monocytes % 7.1 % (1.7-9.3); Neutrophils # 4.9 K/mm3 (1.8-7.8); Neutrophils % 62.9 % (37.0-80.0); Platelet Count 269 K/mm3 (142-424); Red Blood Count 4.69 M/mm3 (4.20-5.40); Red Cell Distribution Width 12.4 % (11.5-17.5); White Blood Count 7.8 K/mm3 (4.8-10.8)
[2023-01-26 12:56] LABS: Alanine Aminotransferase 28 U/L (12-78); Albumin Level 4.4 g/dl (3.5-5.0); Albumin/Globulin Ratio 1.4 (1.1-1.8); Alkaline Phosphatase 130 U/L (38-126); Anion Gap 11.5 mEq/L (5-15); Aspartate Amino Transferase 35 U/L (14-36); Bilirubin,Total 0.6 mg/dl (0.2-1.3); Blood Urea Nitrogen 24 mg/dl (7-17); Calcium 10.2 mg/dl (8.4-10.2); Carbon Dioxide 30 mmol/L (22.0-30.0); Chloride 106 mmol/L (98-107); Chol/HDL Ratio 2.5 (1-3.5); Cholesterol 118 mg/dl (140-200); Estimated Glomerular Filt Rate 61 ml/min (>60); GFR (African American) 74 ML/MIN (>60); Globulin 3.1 g/dL (1.3-3.2); Glucose 97 mg/dl (74-100); HDL Cholesterol 48 mg/dl (40-60); Potassium 4.5 mmoL/L (3.5-5.1); Sodium 143 mmol/L (136-145); Total Protein,Serum 7.5 g/dl (6.3-8.2); Triglycerides 88 mg/dl (30-150); VLDL Cholesterol 18 mg/dL (0-40)
[2023-01-26 13:07] LABS: Direct LDL Cholesterol 47.67 mg/dL (100-129)
[2023-01-26 13:12] LABS: 25-OH Vitamin D, Total 39.1 ng/mL (30-100)
[2023-01-26 13:14] LABS: T4 (Thyroxine) 13.2 ug/dl (5.53-11.0)
[2023-01-26 13:27] LABS: Thyroid Stimulating Hormone < 0.02 uIU/mL (0.465-4.68)
== END ==
PROVIDERS: PCP Emergency Medicine; Visit Provider Emergency Medicine
DX: E55.9 Vitamin D deficiency, unspecified (principal); E03.9 Hypothyroidism, unspecified; I10 Essential (primary) hypertension
CPT/HCPCS: 80053; 80061; 82306; 84436; 84443; 85025

== ENCOUNTER → 2023-01-27 15:03 | Outpatient (CLI) | payer MEDICARE, SELFPAY | PROVIDERS: PCP Emergency Medicine; Visit Provider Nurse Practitioner | DX: R00.1 Bradycardia, unspecified; R42 Dizziness and giddiness; I10 Essential (primary) hypertension; R94.31 Abnormal electrocardiogram [ECG] [EKG]; E03.9 Hypothyroidism, unspecified; I65.23 Occlusion and stenosis of bilateral carotid arteries; R26.81 Unsteadiness on feet; R60.9 Edema, unspecified | CPT/HCPCS: 93270 ==

== ENCOUNTER → 2023-02-09 07:48 | Outpatient (CLI) | payer MEDICARE, SELFPAY ==
--- NOTE | 2023-02-09 07:50 | CA_ITS ---
APPROVED REPORT EXAM: Comprehensive 2D, Doppler, and color-flow Echocardiogram Sheet Layer: Silvana Santa CRT Ht: 4 ft 11 in Wt: 158lbs BSA: 1.67 BP: 116/63 mmHg Indications: Shortness of Breath, Fatigue, Hypertension/HDD, DD, BRADYCARDIA, JAJA, DIZZINESS 2D Dimensions LVOT 1.84 cm (M/F) 1.5-2.5 LA Volume 21.40 mL LA Volume Index 12.50 mL/m2 (M/F) 16-34 M-Mode Dimensions RVDd 2.82 cm (0.9-2.6) LA Diam 3.62 cm (1.9-4.0) LVDd 4.51 cm (3.5-5.7) Ao Diam 3.33 cm (2.0-3.7) LVDs 2.10 cm (3.5-5.7) IVSd 0.94 cm (0.6-1.1) PWd 0.50 cm (0.6-1.1) EF (Teich) 84.50% FS 53.40% EDV (Teich) 92.90 mL TAPSE 2.40 (<1.7) ESV (Teich) 14.40 mL LV Diastology E Decel Time 193.00 (160-240 msec) E/A Ratio 1.03 MED E' 9.50 (< 7 cm/sec) MED A' 14.50 cm/s E'/MED E' Ratio 10.22 (>14) LAT E' 6.20 (<10 cm/sec) LAT A' 15.60 cm/s E/LAT E' Ratio 15.66 (>14) Aortic Valve AO Peak GR. 7.40 mmHg Mitral Valve MV A Velocity 94.00 (40-130 cm/s) E/A Ratio 1.03 MV Decel. Time 193.00 (160-240 ms) Pulmonary Valve PV Peak Velocity 153.00 (50-150 cm/s) Tricuspid Valve TR P. Velocity 284.00 cm/s RAP Estimate 10.00 mmHg RVSP 42.30 mmHg Left Ventricle The left ventricle is normal size. The left ventricular systolic function is normal. The left ventricular ejection fraction is within the normal range. There is normal left ventricular wall thickness. There is normal LV segmental wall motion. Diastolic function is indeterminate. LVEF is 55%. Right Ventricle The right ventricle is normal size. The right ventricular systolic function is normal. Atria The left atrium size is normal. The right atrium size is normal. There is no Doppler evidence of interatrial shunt. Aortic Valve The aortic valve is normal in structure. There is no aortic valvular stenosis. Trace aortic regurgitation is present. Mitral Valve The mitral valve is normal in structure. No evidence of mitral valve stenosis. Trace mitral regurgitation. Tricuspid Valve The tricuspid valve leaflets are thin and pliable. Mild tricuspid regurgitation. RVSP=30-35 mmHg. Pulmonic Valve The pulmonary valve is normal in structure. Trace pulmonic regurgitation. Great Vessels The aortic root is normal in size. The ascending aorta is normal in size. IVC is normal in size and collapses >50% with inspiration. Pericardium There is no pericardial effusion. Other Information Study Quality: Adequate Conclusion Normal biventricular systolic function. No significant valvular disease. Electronically signed by : Jennifer Jackson, 02/09/2023 12:27:45
== END ==
PROVIDERS: PCP Emergency Medicine; Visit Provider Nurse Practitioner
DX: E03.9 Hypothyroidism, unspecified (principal); I10 Essential (primary) hypertension; R00.1 Bradycardia, unspecified; R26.81 Unsteadiness on feet; R42 Dizziness and giddiness; R94.31 Abnormal electrocardiogram [ECG] [EKG]; I65.23 Occlusion and stenosis of bilateral carotid arteries
CPT/HCPCS: 93306

== ENCOUNTER 2023-08-25 18:16 | Outpatient (CLI) | payer MEDICARE, SELFPAY ==
[2023-08-25 18:25] LABS: Alanine Aminotransferase 31 U/L (12-78); Albumin Level 4.4 g/dl (3.5-5.0); Albumin/Globulin Ratio 1.4 (1.1-1.8); Alkaline Phosphatase 123 U/L (38-126); Anion Gap 8.7 mEq/L (5-15); Aspartate Amino Transferase 40 U/L (14-36); Bilirubin,Total 0.9 mg/dl (0.2-1.3); Blood Urea Nitrogen 29 mg/dl (7-17); Calcium 11.1 mg/dl (8.4-10.2); Carbon Dioxide 34 mmol/L (22.0-30.0); Chloride 102 mmol/L (98-107); Estimated Glomerular Filt Rate 70 ml/min (>60); GFR (African American) 84 ML/MIN (>60); Globulin 3.2 g/dL (1.3-3.2); Glucose 85 mg/dl (74-100); Potassium 4.7 mmoL/L (3.5-5.1); Sodium 140 mmol/L (136-145); Total Protein,Serum 7.6 g/dl (6.3-8.2)
[2023-08-25 18:38] LABS: Intact Parathyroid Hormone 96.9 pg/mL (7.5-53.5)
[2023-08-25 18:56] LABS: Thyroid Stimulating Hormone < 0.02 uIU/mL (0.465-4.68)
[2023-08-25 19:04] LABS: Hemoglobin A1C 5.5 % (4.0-6.0)
[2023-08-25 20:20] LABS: Microalbumin < 12.000 mg/L (0-16.7); Microalbumin/Creatinine Ratio 20.6
[2023-08-25 20:23] LABS: Creatinine,Urine Random 58 mg/dL (Not Estab.)
== END 2023-08-25 23:59 ==
LOC: LAB.DROPOF 18:16
PROVIDERS: PCP Internal Medicine; Visit Provider Internal Medicine
DX: E05.90 Thyrotoxicosis, unspecified without thyrotoxic crisis or storm (principal); R73.09 Other abnormal glucose; R53.83 Other fatigue
CPT/HCPCS: 80053; 82043; 82570; 83036; 83970; 84443

== ENCOUNTER 2023-10-04 09:57 | Outpatient (CLI) | payer MEDICARE, SELFPAY ==
--- NOTE | 2023-10-04 09:59 | CA_ITS ---
APPROVED REPORT EXAM: Comprehensive 2D, Doppler, and color-flow Echocardiogram Aluminum Siding Applicator: Silvana Santa CRT Ht: 4 ft 11 in Wt: 168lbs BSA: 1.71 BP: 122/80 mmHg Indications: Peripheral Edema, Hypertension/HDD 2D Dimensions IVSd 0.90 cm LVEF (Visual) 45.40 % PWd 0.87 cm LA Volume 41.30 mL LVDd 4.30 cm LA Volume Index 23.60 mL/m2 (M/F) 16-34 LVDs 3.34 cm Left Atrium 2.84 cm M-Mode Dimensions RVDd 2.16 cm (0.9-2.6) LA Diam 3.86 cm (1.9-4.0) LVDd 4.98 cm (3.5-5.7) LVDs 3.00 cm (3.5-5.7) IVSd 0.72 cm (0.6-1.1) PWd 0.69 cm (0.6-1.1) EF (Teich) 70.10% EPSs 0.19 cm FS 39.80% EDV (Teich) 117.10 mL TAPSE 2.98 (<1.7) ESV (Teich) 35.00 mL LV Diastology E Decel Time 150 (160-240 msec) E/A Ratio 0.72 MED A' 13.50 cm/s LAT A' 11.10 cm/s Aortic Valve LOGAN Index 1.10 cm2/m2 AoV Peak Jonathan. 173.0 (50-130 cm/s) AO Peak GR. 12.00 mmHg AO Mean GR. 5.90 (<5 mmHg) AO VTI 37.9 (18-25 cm) LOGAN (VTI) 1.92 (2.5-4.5 cm2) Mitral Valve MV A Velocity 92.0 (40-130 cm/s) E/A Ratio 0.72 Pulmonary Valve PV Peak Velocity 88.0 (50-150 cm/s) Tricuspid Valve TR P. Velocity 330.00 cm/s RAP Estimate 10.00 mmHg RVSP 53.70 mmHg Left Ventricle The left ventricle is normal size. The left ventricular systolic function is normal. The left ventricular ejection fraction is within the normal range. Proximal septal thickening is noted. There is normal LV segmental wall motion. Transmitral Doppler flow pattern suggests impaired LV relaxation. LVEF is 55%. Right Ventricle The right ventricle is mildly dilated. The right ventricular systolic function is normal. Atria Left atrium is mildly dilated. Right atrium is mildly dilated. There is no Doppler evidence of interatrial shunt. Aortic Valve The aortic valve is mildly thickened. There is no aortic valvular stenosis. No aortic regurgitation is present. Mitral Valve The mitral valve leaflets are mildly thickened. No evidence of mitral valve stenosis. Trace mitral regurgitation. Tricuspid Valve The tricuspid valve leaflets are thin and pliable. Moderate tricuspid regurgitation. RVSP is 40-45 mmHg. Pulmonic Valve The pulmonary valve is normal in structure. Trace pulmonic regurgitation. Great Vessels The aortic root is normal in size. The ascending aorta is normal in size. IVC is normal in size and collapses >50% with inspiration. Pericardium There is no pericardial effusion. Other Information Study Quality: Fair Conclusion Normal biventricular systolic function. Mild RV dilation. Mild biatrial dilation. Moderate TR. Elevated RVSP 40-45 mmHg. Electronically signed by : Jennifer Jackson MD 10/05/2023 23:48:29
== END 2023-10-04 23:59 ==
LOC: RT 09:57
PROVIDERS: PCP Internal Medicine; Visit Provider Internal Medicine
DX: R60.9 Edema, unspecified (principal); R94.31 Abnormal electrocardiogram [ECG] [EKG]
CPT/HCPCS: 93306

== ENCOUNTER 2023-10-13 13:39 | Outpatient (CLI) | payer MEDICARE, SELFPAY ==
[2023-10-13 12:55] LABS: Free T4 (Free Thyroxine) 1.67 ng/dl (0.78-2.19)
[2023-10-13 16:12] LABS: Thyroid Stimulating Hormone < 0.02 uIU/mL (0.465-4.68)
== END 2023-10-13 23:59 ==
LOC: LAB.DROPOF 13:39
PROVIDERS: PCP Internal Medicine; Visit Provider Internal Medicine
DX: E03.9 Hypothyroidism, unspecified (principal)
CPT/HCPCS: 84439; 84443

== ENCOUNTER 2023-10-17 15:24 | Outpatient (CLI) | payer MEDICARE, SELFPAY ==
[2023-10-17 17:05] LABS: Chloride 105 mmol/L (98-107)
[2023-10-17 17:06] LABS: Potassium 4.8 mmoL/L (3.5-5.1); Sodium 141 mmol/L (136-145)
[2023-10-17 17:09] LABS: Anion Gap 9.8 mEq/L (5-15); Blood Urea Nitrogen 33 mg/dl (7-17); Carbon Dioxide 31 mmol/L (22.0-30.0); Estimated Glomerular Filt Rate 48 ml/min (>60); GFR (African American) 58 ML/MIN (>60); Glucose 100 mg/dl (74-100)
== END 2023-10-17 23:59 ==
LOC: LAB 15:25
PROVIDERS: PCP Internal Medicine; Visit Provider Internal Medicine
DX: R94.31 Abnormal electrocardiogram [ECG] [EKG] (principal); I65.29 Occlusion and stenosis of unspecified carotid artery; I10 Essential (primary) hypertension; I51.89 Other ill-defined heart diseases
CPT/HCPCS: 36415; 80048

== ENCOUNTER 2023-11-10 15:47 | Outpatient (CLI) | payer MEDICARE, SELFPAY ==
[2023-11-10 19:16] LABS: Alanine Aminotransferase 46 U/L (12-78); Albumin Level 4.2 g/dl (3.5-5.0); Albumin/Globulin Ratio 1.4 (1.1-1.8); Alkaline Phosphatase 106 U/L (38-126); Anion Gap 12.5 mEq/L (5-15); Aspartate Amino Transferase 53 U/L (14-36); Bilirubin,Total 0.6 mg/dl (0.2-1.3); Blood Urea Nitrogen 26 mg/dl (7-17); Calcium 10.8 mg/dl (8.4-10.2); Carbon Dioxide 32 mmol/L (22.0-30.0); Chloride 100 mmol/L (98-107); Estimated Glomerular Filt Rate 61 ml/min (>60); GFR (African American) 73 ML/MIN (>60); Glucose 81 mg/dl (74-100); Potassium 4.5 mmoL/L (3.5-5.1); Sodium 140 mmol/L (136-145); Total Protein,Serum 7.2 g/dl (6.3-8.2)
[2023-11-10 19:28] LABS: Free T4 (Free Thyroxine) 0.84 ng/dl (0.78-2.19)
[2023-11-10 19:45] LABS: Thyroid Stimulating Hormone 6.65 uIU/mL (0.465-4.68)
[2023-11-12 10:28] LABS: Thyroid Peroxidase Antibodies 263 IU/mL (0-34); Triiodothyronine (T3) Free 2.2 pg/mL (2.0-4.4)
[2023-11-14 18:10] LABS: Thyroglobulin Level 83.4 IU/mL (0.0-0.9)
== END 2023-11-10 23:59 | disposition home or self-care (01) ==
LOC: LAB.DROPOF 11-11 15:48
PROVIDERS: PCP Internal Medicine; Visit Provider Internal Medicine
DX: E03.9 Hypothyroidism, unspecified (principal); R53.83 Other fatigue; E07.9 Disorder of thyroid, unspecified
CPT/HCPCS: 80053; 84439; 84443; 84481; 86376; 86800

== ENCOUNTER 2023-11-22 13:56 | Outpatient (CLI) | payer MEDICARE, SELFPAY ==
--- NOTE | 2023-11-22 13:56 | US_ITS ---
FINAL REPORT TECHNIQUE: Real-time grayscale and color ultrasound of the thyroid was performed. CLINICAL HISTORY: abnormal labs COMPARISON: None FINDINGS: The thyroid gland is small measuring 32 x 7 x 9 mm on the right and 27 x 7 x 10 mm on the left. The isthmus measures 3 mm. The parenchyma is heterogeneous. Nodules: No suspicious nodules identified. IMPRESSION: Small heterogeneous thyroid which may be due to chronic sequela from thyroiditis. No suspicious nodules identified. Reviewed, Interpreted and Dictated by Stevan Silva MD Transcribed by Ileana Lo Authenticated and . [facility]
== END 2023-11-22 23:59 | disposition home or self-care (01) ==
LOC: RAD 13:56
PROVIDERS: PCP Internal Medicine; Visit Provider Internal Medicine
DX: E03.9 Hypothyroidism, unspecified (principal)
CPT/HCPCS: 76536

== ENCOUNTER 2024-01-09 10:52 | Emergency (ER) | payer MEDICARE, SELFPAY ==
[2024-01-09 11:05] VITALS: BP 170/106; PULSE 64; RESP 20; TEMP 36.6; O2SAT 99; BMI 32.9
--- NOTE | 2024-01-09 11:09 | XR_ITS ---
FINAL REPORT CLINICAL HISTORY: Right ankle pain, no injury FINDINGS: RIGHT ANKLE 3 views of the right ankle were obtained. There is no acute fracture or dislocation. The mortise is intact. There are mild degenerative changes. Calcaneal spurs are noted. Soft tissues are unremarkable. IMPRESSION: No acute bony abnormality. Reviewed, Interpreted and Dictated by Rogelio Vega III, MD Transcribed by Anita Andrews Authenticated and . [facility]
--- NOTE | 2024-01-09 11:31 | ED_ITS ---
Discharge Plan Disposition Patient Disposition: Home, Self-Care Condition: Good Prescriptions Prescriptions: No Action aspirin 81 mg tablet 81 mg PO DIRECTED Patient Comments: 3 times per week, mon, wed, fri losartan-hydrochlorothiazide 100-25 mg tablet 1 tab PO DAILY Qty: 30 5RF levothyroxine 50 mcg capsule 50 mcg PO DAILY Qty: 30 2RF alendronate 35 mg tablet See Rx Instructions .ROUTE .COMPLEX Qty: 14 2RF Dose Instruction: TAKE 1 TABLET BY MOUTH ONCE WEEKLY ON SAME DAY EACH WEEK DIRECTED Rx Instructions: TAKE 1 TABLET BY MOUTH ONCE WEEKLY ON SAME DAY EACH WEEK DIRECTED atorvastatin 40 mg tablet See Rx Instructions .ROUTE .COMPLEX Qty: 90 0RF Dose Instruction: TAKE 1 TABLET BY MOUTH EVERY AT BEDTIME Rx Instructions: TAKE 1 TABLET BY MOUTH EVERY AT BEDTIME Referrals Follow up/Referrals: Arias Gunter DO [Primary Care Provider] - See instructions Activity Restrictions/Add. Instructions Additional Instructions/Restrictions: *weight bearing as tolerated *RICE, Rest the extremity, Ice 15-20 minutes 3-4 times daily, Compress- wear the sunil wrap as discussed as much as possible to help reduce swelling and pain, Elevate the extremity when at rest *Sunil wrap is for support and help control swelling, use it except in the shower. Be sure that is not to tight but not to loose either *Elevate when resting? *Ibuprofen 400mg every 6-8 hours as needed for pain an inflammation if you can take it if not or If need something more can take Tylenol in between doses of Ibuprofen to help Immediately follow up with your family doctor for new or worsening of symptoms, or no noticeable improvement over the next 3-5 days Clinical Impressions Clinical Impression: Ankle pain Qualifiers: Chronicity: unspecified Laterality: right Qualified Code(s): M25.571 - Pain in right ankle and joints of right foot Instructions Patient Instructions: How To Perform RICE (Rest, Ice, Compress, Elevate) Discharge ED Provider: Daisy Peralta [facility] General Stated complaint: Pain in R ankle Mode of Arrival: Ambulatory Source of Information: Patient Limitations: No Limitations Time Seen by Provider: 01/09/24 11:31 Description of Symptoms (Recalled from Triage Doc. by RN): PATIENT C/O RIGHT ANKLE PAIN AFTER ROLLING IT A FEW WEEKS AGO HEENT Symptoms (Recalled from RN notes): No Resp Symptoms (Recalled from RN notes): No Skin Symptoms (Recalled from RN notes): No MS Symptoms (Recalled from RN notes): Yes Functional Status (Recalled from RN notes): WNL History of Present Illness Provider Complaint: Patient states that she has been having pain in her right ankle after rolling it a week or so ago States that at times she has been having pain in her right hip and knee when she lays on that side but when she rolls over the pain goes away so today when it was still hurting in her right ankle she came in to get it checked Denies swelling or bruising just pain with walking Related Data Home Medications Medication Instructions Recorded Confirmed aspirin 81 mg tablet 81 mg PO DIRECTED 01/27/23 12/01/23 Previous Rx's Medication Instructions Recorded alendronate 35 mg tablet See Rx Instructions .Route 03/31/23 .COMPLEX osteoperosis #14 tabs losartan 100 1 tab PO DAILY #30 tabs 09/08/23 mg-hydrochlorothiazide 25 mg tablet atorvastatin 40 mg tablet See Rx Instructions .Route 11/21/23 .COMPLEX Cholesterol #90 tabs levothyroxine 50 mcg capsule 50 mcg PO DAILY #30 caps 12/01/23 Allergies Allergy/AdvReac Type Severity Reaction Status Date / Time No Known Allergies Allergy Verified 12/01/23 09:55 Worker's Comp Is this a Worker's Comp case?: No [facility] Disclaimer: The information contained in this section may have been updated after the patient was seen, as this information can be updated by other users. Medical History Stenosis of carotid artery This is an old records. However carotid Dopplers reveal nothing greater than 20% narrowing. Will just follow at this point. Diastolic dysfunction Surgical History S/P removal of parathyroid gland Apparently this patient had her parathyroid removed. Will recheck her parathyroid hormone levels as well as her thyroid panel levels see below. Social History Smoking Status: Never smoker alcohol intake: never substance use type: denies use current occupational status: unemployed Travel in the last 8 weeks: None ROS Obtained: Yes All systems reviewed & no additional complaints except as documented and Yes Systems reviewed as appropriate & no additional complaints except as documented Constitutional Constitutional: Reports system reviewed and no additional complaints, except as documented and Reports as per HPI ENT Ears, Nose, Mouth, and Throat: Reports system reviewed and no additional complaints, except as documented and Reports as per HPI Cardiovascular Cardiovascular: Reports system reviewed and no additional complaints, except as documented and Reports as per HPI Respiratory Respiratory: Reports system reviewed and no additional complaints, except as documented and Reports as per HPI Gastrointestinal Gastrointestingal: Reports system reviewed and no additional complaints, except as documented and as per HPI Musculoskeletal Musculoskeletal: Reports system reviewed and no additional complaints, except as documented, Reports as per HPI and Reports other Comments: pain in right ankle after rolling it a couple weeks ago Physical Exam General General appearance: alert and in no apparent distress Respiratory Respiratory exam: Present normal lung sounds bilaterally; Absent respiratory distress, wheezes or stridor Cardiovascular Cardiovascular exam: Present regular rate, normal rhythm and normal heart sounds Expanded Lower Extremity Exam Right: Ankle exam: Present tenderness; Absent swelling or ecchymosis Ankle image: 2 1. tenderness and pain with ambulation no swelling or bruising noted Gait: observed and normal Neurological Exam Neurological exam: Present alert, oriented X3 and normal gait Medical Decision Making Steven Inquiry Pt receiving controlled substance: No Steven was queried for this patient: No Vital Signs: 01/09/24 11:05 Temperature 97.9 F Temperature Source Oral Pulse Rate [Left Brachial] 64 Respiratory Rate 20 Blood Pressure [Left Arm] 170/106 H Blood Pressure Mean [Left Arm] 127 Blood Pressure Source [Left Arm] Automatic Cuff Blood Pressure Position [Left Arm] Sitting 02 Sat by Pulse Oximetry 99 Oxygen Delivery Method Room Air Orders (Tests/Meds): ORDERS Category Date Time Status Ankle XR -Right minimum 3 Views [XR ankle RT min 3V] Exams 01/09/24 11:09 Ordered Stat Radiology Data #1: Image(s): Ankle Image Reviewed: Yes I have reviewed radiologist's interpretation no acute bony abnormality
[2024-01-09 13:03] VITALS: BP 170/106; PULSE 64; RESP 20; TEMP 36.6; O2SAT 99
== END 2024-01-09 13:08 | disposition home or self-care (01) ==
PROVIDERS: Emergency Provider Nurse Practitioner; PCP Internal Medicine
DX: M25.571 Pain in right ankle and joints of right foot (principal)
CPT/HCPCS: 73610; 99212; 99213; G0463

== ENCOUNTER 2024-02-08 09:56 | Outpatient (CLI) | payer MEDICARE, SELFPAY ==
[2024-02-08 11:46] LABS: Alanine Aminotransferase 30 U/L (12-78); Albumin Level 4.1 g/dl (3.5-5.0); Albumin/Globulin Ratio 1.2 (1.1-1.8); Alkaline Phosphatase 98 U/L (38-126); Anion Gap 12.5 mEq/L (5-15); Aspartate Amino Transferase 40 U/L (14-36); Bilirubin,Total 0.8 mg/dl (0.2-1.3); Blood Urea Nitrogen 21 mg/dl (7-17); Calcium 10.3 mg/dl (8.4-10.2); Carbon Dioxide 29 mmol/L (22.0-30.0); Chloride 105 mmol/L (98-107); Estimated Glomerular Filt Rate 54 ml/min (>60); GFR (African American) 65 ML/MIN (>60); Globulin 3.3 g/dL (1.3-3.2); Glucose 86 mg/dl (74-100); Magnesium 1.5 mg/dl (1.6-2.3); Potassium 4.5 mmoL/L (3.5-5.1); Sodium 142 mmol/L (136-145); Total Protein,Serum 7.4 g/dl (6.3-8.2)
[2024-02-08 12:00] LABS: Free T4 (Free Thyroxine) 0.82 ng/dl (0.78-2.19)
[2024-02-08 12:01] LABS: Intact Parathyroid Hormone 139.9 pg/mL (7.5-53.5)
[2024-02-08 12:05] LABS: 25-OH Vitamin D, Total 28.8 ng/mL (30-100)
[2024-02-08 12:24] LABS: Creatinine,Urine Random 63 mg/dL (Not Estab.)
[2024-02-08 14:08] LABS: Collection Time,Urine 24 hours; Creatinine 24 Hour,Urine 951 mg/24hr (630-2500); Total Volume,Urine 1510 mL (250-2400)
--- NOTE | 2024-02-08 15:19 | XR_ITS ---
FINAL REPORT CLINICAL HISTORY: SCREENING COMPARISON: None FINDINGS: Using L1-4, the bone mineral density of the spine is 1.151 g/cm2, corresponding to T-score of 0.9 which is within normal limits but likely falsely elevated secondary to hypertrophic changes. Using the left hip, the bone mineral density of the femoral neck is 0.711 g/cm2, corresponding to a T-score of -1.2 which is consistent with low bone density. Using the right hip, the bone mineral density of the femoral neck is 0.808 g/cm2, corresponding to a T-score of -1.1 which is consistent with low bone density. FRAX not reported because the patient is being treated for osteoporosis. NOTE: T-score: Standard deviation compared with peak bone mass of young adult mean. *Following the recommendations of the International Society of Bone densitometry, classification of hip BMD is based on the lower of two T-scores; total hip or femoral neck. IMPRESSION: Diminished bone mineral density consistent with low bone density. Reviewed, Interpreted and Dictated by Rogelio Vega III, MD Transcribed by Ileana Lo Authenticated and . [facility]
[2024-02-09 07:30] LABS: Calcium, Urine 1.8 mg/dL (Not Estab.); Calcium, Urine 24hr 31 mg/24 hr (0-320)
[2024-02-09 16:13] LABS: Calcium, Ionized 5.5 mg/dL (4.5-5.6)
== END 2024-02-08 23:59 | disposition home or self-care (01) ==
LOC: RAD 09:58
PROVIDERS: PCP Internal Medicine; Visit Provider Internal Medicine Endocrinology, Diabetes & Metabolism
DX: M81.0 Age-related osteoporosis without current pathological fracture (principal); E21.0 Primary hyperparathyroidism; E06.3 Autoimmune thyroiditis; E03.8 Other specified hypothyroidism
CPT/HCPCS: 36415; 77080; 80053; 82306; 82330; 82340; 82570; 83735; 83970; 84439; 84443

== ENCOUNTER 2024-08-03 13:57 | Outpatient (CLI) | payer MEDICARE, SELFPAY ==
--- NOTE | 2024-08-03 14:03 | CA_ITS ---
APPROVED REPORT EXAM: Comprehensive 2D, Doppler, and color-flow Echocardiogram Plant Guide: Silvana Santa CRT Ht: 4 ft 11 in Wt: 171lbs BSA: 1.73 BP: 147/82 mmHg Indications: Abnormal ECG, Peripheral Edema, Hypertension/HDD 2D Dimensions LA Volume 26.90 mL LA Volume Index 15.20 mL/m2 (M/F) 16-34 M-Mode Dimensions RVDd 2.18 cm (0.9-2.6) LA Diam 3.10 cm (1.9-4.0) LVDd 4.15 cm (3.5-5.7) LVDs 2.30 cm (3.5-5.7) IVSd 1.05 cm (0.6-1.1) PWd 1.04 cm (0.6-1.1) EF (Teich) 76.30% FS 44.60% EDV (Teich) 76.40 mL TAPSE 2.30 (<1.7) ESV (Teich) 18.10 mL LV Diastology E Decel Time 133 (160-240 msec) E/A Ratio 0.72 MED A' 9.10 cm/s LAT A' 14.20 cm/s Aortic Valve LOGAN Index 0.95 cm2/m2 AoV Peak Jonathan. 166.0 (50-130 cm/s) AO Peak GR. 11.10 mmHg AO Mean GR. 5.60 (<5 mmHg) AO VTI 35.2 (18-25 cm) LOGAN (VTI) 1.69 (2.5-4.5 cm2) Mitral Valve MV A Velocity 85.0 (40-130 cm/s) E/A Ratio 0.72 Tricuspid Valve TR P. Velocity 235.00 cm/s RAP Estimate 10.00 mmHg RVSP 32.00 mmHg Left Ventricle The left ventricle is normal size. The left ventricular systolic function is normal. The left ventricular ejection fraction is within the normal range. Proximal septal thickening is noted. There is normal LV segmental wall motion. Transmitral Doppler flow pattern suggests impaired LV relaxation. LVEF is 60-65%. Right Ventricle The right ventricle is normal size. The right ventricular systolic function is normal. Atria The left atrium is mildly dilated. The right atrium is mildly dilated. There is no Doppler evidence of interatrial shunt. Aortic Valve Aortic valve is mildly thickened. There is no aortic valvular stenosis. Trace aortic regurgitation. Mitral Valve The mitral valve is normal in structure. No evidence of mitral valve stenosis. Trace mitral regurgitation. Tricuspid Valve Tricuspid valve is grossly normal in structure and function. Mild tricuspid regurgitation. RVSP is 25-30 mmHg. Pulmonic Valve The pulmonary valve is normal in structure. Trace pulmonic regurgitation. Great Vessels The aortic root is normal in size. The ascending aorta is normal in size. IVC is normal in size and collapses >50% with inspiration. Pericardium There is no pericardial effusion. Other Information Study Quality: Fair Conclusion Normal biventricular systolic function. Mild biatrial dilation. Mild TR. Electronically signed by : Jennifer Jackson MD 08/12/2024 20:22:52
--- NOTE | 2024-08-03 14:04 | CA_ITS ---
FINAL REPORT TECHNIQUE: Left lower extremity venous duplex was performed with augmentation and compression. CLINICAL HISTORY: edema LLE, HTN, denies trauma. COMPARISON: None FINDINGS: Proper flow is seen throughout the left lower extremity deep venous system. There is no evidence of deep venous thrombosis. IMPRESSION: no deep venous thrombosis involving the left lower extremity. Reviewed, Interpreted and Dictated by Stevan Silva MD Transcribed by Heidi Obando Authenticated and [facility]
== END 2024-08-03 23:59 | disposition home or self-care (01) ==
LOC: RT 13:59
PROVIDERS: Visit Provider Internal Medicine
DX: I51.89 Other ill-defined heart diseases (principal); R94.31 Abnormal electrocardiogram [ECG] [EKG]; R60.0 Localized edema
CPT/HCPCS: 93306; 93971

== ENCOUNTER 2024-08-22 10:49 | Outpatient (CLI) | payer MEDICARE, SELFPAY ==
--- NOTE | 2024-08-22 10:50 | CT_ITS ---
FINAL REPORT TECHNIQUE: Axial images through the abdomen and pelvis were performed without contrast. Coronal and sagittal reconstructed images were obtained and reviewed. This study was performed with techniques to keep radiation doses as low as reasonably achievable, (ALARA). Individualized dose reduction techniques using automated exposure control or adjustment of mA and/or kV according to the patient's size were employed. CLINICAL HISTORY: edema LLE COMPARISON: None FINDINGS: ABDOMEN: The lung bases are clear. The heart size is normal. The aorta is normal in caliber. There is no significant free fluid or adenopathy. There are no renal or ureteral stones. There is no hydronephrosis. A small hypodense lesion in the right kidney is possibly a cyst but difficult to evaluate without contrast. The unenhanced liver, spleen, adrenal glands, and pancreas are without acute abnormality. The gallbladder is present. Within the GI tract, there is a small hiatal hernia with debris in the distal esophagus. There is no evidence of small bowel obstruction. PELVIS: The appendix is not visualized. There are no secondary signs of appendicitis. There is a moderate amount of retained stool. The uterus is unremarkable for age. There is no abdominal or pelvic lymphadenopathy. There is no evidence of ascites. BONES: No acute osseous abnormality. IMPRESSION: No renal or ureteral stones. No acute abnormality in the abdomen or pelvis on this unenhanced exam. Reviewed, Interpreted and Dictated by Rachel Stephens MD Transcribed by Lisa Martins Authenticated and [facility]
== END 2024-08-22 23:59 | disposition home or self-care (01) ==
LOC: RAD 10:50
PROVIDERS: PCP Internal Medicine; Visit Provider Internal Medicine
DX: I35.9 Nonrheumatic aortic valve disorder, unspecified (principal); R60.0 Localized edema
CPT/HCPCS: 74176

== ENCOUNTER 2024-09-10 15:24 | Outpatient (CLI) | payer MEDICARE, SELFPAY ==
[2024-09-10 17:23] LABS: Anion Gap 13.5 mEq/L (5-15); Blood Urea Nitrogen 33 mg/dl (7-17); Calcium 10.7 mg/dl (8.4-10.2); Carbon Dioxide 28 mmol/L (22.0-30.0); Chloride 104 mmol/L (98-107); Estimated Glomerular Filt Rate 36 ml/min (>60); GFR (African American) 44 ML/MIN (>60); Glucose 95 mg/dl (74-100); Potassium 4.5 mmoL/L (3.5-5.1); Sodium 141 mmol/L (136-145)
== END 2024-09-10 23:59 | disposition home or self-care (01) ==
LOC: LAB 15:26
PROVIDERS: PCP Internal Medicine; Visit Provider Internal Medicine
DX: I10 Essential (primary) hypertension (principal)
CPT/HCPCS: 36415; 80048

== ENCOUNTER 2024-09-24 14:04 | Outpatient (CLI) | payer MEDICARE, SELFPAY ==
[2024-09-24 15:49] LABS: Anion Gap 7.7 mEq/L (5-15); Blood Urea Nitrogen 37 mg/dl (7-17); Calcium 11.7 mg/dl (8.4-10.2); Carbon Dioxide 33 mmol/L (22.0-30.0); Chloride 102 mmol/L (98-107); Estimated Glomerular Filt Rate 43 ml/min (>60); GFR (African American) 53 ML/MIN (>60); Glucose 84 mg/dl (74-100); Potassium 4.7 mmoL/L (3.5-5.1); Sodium 138 mmol/L (136-145)
== END 2024-09-24 23:59 | disposition home or self-care (01) ==
LOC: LAB 14:05
PROVIDERS: PCP Internal Medicine; Visit Provider Internal Medicine
DX: R60.0 Localized edema (principal); I10 Essential (primary) hypertension; E83.52 Hypercalcemia
CPT/HCPCS: 36415; 80048

== ENCOUNTER 2024-10-01 14:08 | Outpatient (CLI) | payer MEDICARE, SELFPAY ==
[2024-10-01 15:14] LABS: Chloride 101 mmol/L (98-107); Potassium 5.1 mmoL/L (3.5-5.1); Sodium 141 mmol/L (136-145)
[2024-10-01 15:16] LABS: Blood Urea Nitrogen 33 mg/dl (7-17); Estimated Glomerular Filt Rate 43 ml/min (>60); GFR (African American) 53 ML/MIN (>60)
[2024-10-01 15:17] LABS: Anion Gap 14.1 mEq/L (5-15); Calcium 11.1 mg/dl (8.4-10.2); Carbon Dioxide 31 mmol/L (22.0-30.0); Glucose 83 mg/dl (74-100); Magnesium 1.3 mg/dl (1.6-2.3)
== END 2024-10-01 23:59 | disposition home or self-care (01) ==
LOC: LAB 14:10
PROVIDERS: Visit Provider Internal Medicine
DX: I65.29 Occlusion and stenosis of unspecified carotid artery (principal); I10 Essential (primary) hypertension; E03.9 Hypothyroidism, unspecified; M47.812 Spondylosis without myelopathy or radiculopathy, cervical region
CPT/HCPCS: 36415; 80048; 83735

== ENCOUNTER 2024-10-24 08:30 | Outpatient (CLI) | payer MEDICARE, SELFPAY ==
[2024-10-24 08:50] LABS: Basophils # 0.1 K/mm3 (0-0.2); Basophils % 0.9 % (0.1-2.0); Eosinophils # 0.2 Kmm3 (0.0-0.4); Hematocrit 38.5 % (37.0-47.0); Hemoglobin 12.9 g/dL (12.2-16.2); Lymphocytes # 1.9 K/mm3 (0.7-4.5); Lymphocytes % 29.1 % (10-50); Mean Corpuscular HGB Conc 33.5 g/dL (31.8-35.4); Mean Corpuscular Hemoglobin 30.9 pg (27.0-31.2); Mean Corpuscular Volume 92.1 fl (81-99); Mean Platelet Volume 10.6 fl (7.4-10.4); Monocytes # 0.6 K/mm3 (0.1-1.0); Monocytes % 9.5 % (1.7-9.3); Neutrophils # 3.8 K/mm3 (1.8-7.8); Neutrophils % 57.3 % (37.0-80.0); Nucleated Red Blood Cells # 0 10^3/uL; Nucleated Red Blood Cells % 0 %; Platelet Count 263 K/mm3 (142-424); Red Blood Count 4.18 M/mm3 (4.20-5.40); Red Cell Distribution Width-SD 43.4 fL; White Blood Count 6.6 K/mm3 (4.8-10.8)
[2024-10-24 09:38] LABS: Calcium 10.4 mg/dl (8.4-10.2); Magnesium 1.4 mg/dl (1.6-2.3)
[2024-10-25 19:10] LABS: Calcium, Ionized 5.5 mg/dL (4.5-5.6)
== END 2024-10-24 23:59 | disposition home or self-care (01) ==
LOC: LAB 08:31
PROVIDERS: PCP Family Medicine; Visit Provider Family Medicine
DX: R53.83 Other fatigue (principal); E21.3 Hyperparathyroidism, unspecified
CPT/HCPCS: 36415; 82310; 82330; 83735; 85025

== ENCOUNTER 2024-12-13 11:24 | Outpatient (CLI) | payer MEDICARE, SELFPAY ==
[2024-12-13 19:34] LABS: Albumin Level 4.3 g/dl (3.5-5.0); Chloride 105 mmol/L (98-107); Potassium 4.5 mmoL/L (3.5-5.1); Sodium 140 mmol/L (136-145)
[2024-12-13 19:37] LABS: Alanine Aminotransferase 27 U/L (12-78); Albumin/Globulin Ratio 1.3 (1.1-1.8); Alkaline Phosphatase 100 U/L (38-126); Anion Gap 9.5 mEq/L (5-15); Aspartate Amino Transferase 37 U/L (14-36); Bilirubin,Total 0.5 mg/dl (0.2-1.3); Blood Urea Nitrogen 35 mg/dl (7-17); Carbon Dioxide 30 mmol/L (22.0-30.0); Estimated Glomerular Filt Rate 43 ml/min (>60); GFR (African American) 53 ML/MIN (>60); Globulin 3.2 g/dL (1.3-3.2); Glucose 82 mg/dl (74-100); Total Protein,Serum 7.5 g/dl (6.3-8.2)
[2024-12-13 19:38] LABS: Magnesium 1.5 mg/dl (1.6-2.3)
[2024-12-13 19:55] LABS: Calcium 12.2 mg/dl (8.4-10.2)
[2024-12-13 20:11] LABS: Thyroid Stimulating Hormone 1.94 uIU/mL (0.465-4.68)
--- OUTSIDE RECORDS SUMMARY | 2024-12-14 23:43 | XMS_ITS | Clinical Summary ---
Author Organization Healthcare Address [address] [place] [address] Care Team Providers Care Cardiac Nurse Practitioner Name Role Phone Pcp, No Primary Care [...] 09/27/2024 Results Follow-Up [facility] [address] [place] [id number] Skylar Galeana MD Results 09/26/2024 10:20 AM EDT Office Visit [facility] [address], [address] [place] [address] Skylar Galeana MD Hypothyroidism due [...] Description 04/01/2025 10:20 AM EDT Office Visit [facility] [address], [address] [place] [address] Skylar Galeana MD [address] [address] Health Maintenance Due Date Last Done Comments [facility]-Hepatitis C Screening 1945 [facility]-Medicare Annual Wellness (AWV) 1945 [facility]-Infant/Child/Adol SDOH Screenings 1945 [facility]- SDOH Screenings 1964 [facility]-Adult SDOH Screenings 1964 [facility]-Pneumococcal Vaccine: 50 + Years (1 of 1 - PCV) 1996 [facility]-Zoster Vaccines (1 of 2) 1996 [facility]-DTaP,Tdap,and Td Vaccine s (1 - Tdap) 09/05/1996 09/04/1996 [id number] Vaccine (3 - Moderna risk series) 10/08/2020 [...] Routine 09/26/2024 11:40 AM EDT Primary hyperparathyroidism (CMS/[facility]) Hypomagnesemia PHOSPHORUS, PLASMA Routine 09/26/2024 11:40 AM EDT Primary hyperparathyroidism (CMS/HCC) PTH INTACT TOTAL Routine 09/26/2024 11:40 AM EDT Primary hyperparathyroidism ([facility]) DEXA BONE DENSITY Routine 02/08/2024 9:1 1 AM EDT from Last 3 Months or Most Recently Relevant to Health Maintenance Results * (ABNORMAL) Ionized calcium, serum (09/26/2024 11:40 AM EDT) Ionized Calcium, Serum 5.8(H) 4.6 - 5.3 mg/dL LAB HEMATOLOGY METHOD 09/26/2024 2:25 PM EDT [facility] Blood Venous blood specimen / Unknown Venipuncture / Unknown 09/26/2024 11:40 AM EDT 09/26/2024 11:40 AM EDT us Skylar Galeana MD LAB BLOOD ORDERABLES Final R esult [facility] [address] [place] [id number] * Vitamin D 25 Hydroxy (09/26/2024 11:40 AM EDT) Vitamin D 25 Hydroxy 49.0 20.0 - 80.0 ng/mL 09/26/2024 4:47 PM EDT [facility] Blood Venous blood specimen / Unknown Venipuncture / Unknown 09/26/2024 11:40 AM EDT 09/26/2024 11:40 AM EDT Narrative [facility] - 09/26/2024 4:47 PM EDT Testing performed on [employer], standardized against NIST SRM 2972. When testing [...] ORDERABLES Final R esult Performing Organization Address City/[facility]/[place] [address] * Thyroid Stimulating Hormone, Plasma (09/26/2024 11:40 AM EDT) Thyroid Stimulating Hormone, Plasma 3.11 0.40 - 4.20 uIU/mL 09/26/2024 3:29 PM EDT [facility] Blood Venous blood specimen / Unknown Venipuncture / Unknown 09/26/2024 11:40 AM EDT 09/26/2024 11:40 AM EDT Skylar Galeana MD LAB BLOOD ORDERABLES Final R esult Performing Organization Address City/[facility]/ZIP Co de Phone Number [facility] [address] [place] [address] * Free T4, Plasma (09/26/2024 11:40 AM EDT) Free T4, Plasma 1.5 0.8 - 1.7 ng/dL 09/26/2024 3:29 PM EDT [facility] Blood Venous blood specimen / Unknown Venipuncture / Unknown 09/26/2024 11:40 AM EDT 09/26/2024 11:40 AM EDT Skylar Galeana MD LAB BLOOD ORDERABLES Final R esult Performing Organization Address City/[facility]/ZIP Co de Phone Number [facility] [address] [place] [address] * Phosphorus, Plasma (09/26/2024 11:40 AM EDT) Phosphorus, Plasma 2.7 2.5 - 4.5 mg/dL 09/26/2024 3:29 PM EDT [facility] Blood Venous blood specimen / Unknown Venipuncture / Unknown 09/26/2024 11:40 AM EDT 09/26/2024 11:40 AM EDT Skylar Galeana MD LAB BLOOD ORDERABLES Final R esult Performing Organization Address City/[facility]/ZIP Co de Phone Number [facility] [address] [phone] * (ABNORMAL) PTH Intact Total (09/26/2024 11:40 AM EDT) [facility] PTH Intact Total 152(H) 9 - 77 pg/mL 09/26/2024 6:02 PM EDT [facility] Blood Venous blood specimen / Unknown Venipuncture / Unknown 09/26/2024 11:40 AM EDT 09/26/2024 11:40 AM EDT Narrative [facility] - 09/26/2024 6:02 PM EDT Assay performed by immunoassay at the [facility]. Performed on [employer] chemiluminescent immunoassay, tractable to the World Health Organization's first international standard for PTH from the [facility], Code 79/500. Results obtained from different test methods or kits cannot be used interchangeably. Skylar Galeana MD LAB BLOOD ORDERABLES Final R esult [facility] [address] [place] [address] * (ABNORMAL) Magnesium, Plasma (09/26/2024 11:40 AM EDT) Pathologist [facility] Magnesium, Plasma 1.6(L) 1.9 - 2.4 mg/dL 09/26/2024 3:29 PM EDT [facility] Blood Venous blood specimen / Unknown Venipuncture / Unknown 09/26/2024 11:40 AM EDT 09/26/2024 11:40 AM EDT us Skylar Galeana MD LAB BLOOD ORDERABLES Final R esult [facility] [address] [place] [address] * (ABNORMAL) Comprehensive Metabolic Panel, Plasma (09/26/2024 11:40 AM EDT) Glucose, Plasma 86 74 - 99 mg/dL 09/26/2024 3:29 PM EDT [facility] BUN, Plasma 35(H) 8 - 23 mg/dL 09/26/2024 3:29 PM EDT [facility] Creatinine, Plasma 1.15(H) 0.60 - 1.10 mg/dL 09/26/2024 3:29 PM EDT [facility] BUN/Creatinine Ratio 30 09/26/2024 3:29 PM EDT [facility] Sodium, Plasma 138 136 - 145 mmol/L 09/26/2024 3:29 PM EDT [facility] Potassium, Plasma 4.7 3.6 - 4.9 mmol/L 09/26/2024 3:29 PM EDT [facility] Chloride, Plasma 101 97 - 107 mmol/L 09/26/2024 3:29 PM EDT [facility] CO2, Plasma 27 22 - 29 mmol/L 09/26/2024 3:29 PM EDT [facility] Anion Gap 10 6 - 16 mmol/L 09/26/2024 3:29 PM EDT [facility] Total Calcium, Plasma 10.7(H) 8.9 - 10.2 mg/dL 09/26/2024 3:29 PM EDT [facility] Total Protein 7.9 6.3 - 7.9 g/dL 09/26/2024 3:29 PM EDT [facility] Albumin, Plasma 4.4 3.5 - 5.2 g/dL 09/26/2024 3:29 PM EDT [facility] AST, Plasma 41(H) 10 - 35 U/L 09/26/2024 3:29 PM EDT [facility] ALT, Plasma 30 10 - 35 U/L 09/26/2024 3:29 PM EDT [facility] Alkaline Phosphatase, Plasma 120 46 - [...] BLOOD ORDERABLES Final R esult [facility] [address] [place] [phone] * Dexa Bone Density (02/08/2024 9:11 AM EDT) Anatomical Region Laterality Modality L-spine Radiographic Keisha ging Skylar Galeana MD IMG DXA PROCEDURES Final Res ult from Last 3 Months or Most Recently Relevant to Health Maintenance Insurance MEDICARE [facility] Care Teams Cardiac Nurse Practitioner Relationship Specialty Start Date End Date Pcp, [place] [address] PCP - General Family Medicine 12/27/23
--- OUTSIDE RECORDS SUMMARY | 2024-12-14 23:43 | XMS_ITS | Encounter Summary ---
Author Organization [facility] Address [address] [place] [address] Care Team Providers Care Ent Nurse Name Role Phone Pcp, No Primary Care Provider Unavailabl e Reason for Visit * Reason Onset Date Comments Results 09/27/2024 Encounter Details Date Type Department Care Team (Late st Contact Info) Description 09/27/2024 Results Follow-Up [facility] Endocr[facility]ology [address] [place] [address] Skylar Galeana MD [address] [facility] [address] [place] [address] Results Social History Tobacco Use [...] VM. Sent MyChart 09.27.2024 Skylar Galeana MD [employer] Consulting Architect of Endocrinology, Diabetes and Metabolism [facility] documented in this encounter Plan of Treatment Upcoming Encounters Date Type Department Care Team (Late st Contact Info) Description 04/01/2025 10:20 AM EDT Office Visit [facility] [address], [address] [place] [address] Skylar Galeana MD [address] [facility] [address] [place] [address] documented as of this encounter Visit Diagnoses Not on filedocumented in this encounter Additional Health Concerns Assessment Noted Time A fall risk assessment has been complete d for the patient 09/26/2024 10:45 AM EDT A Body Mass Index follow-up plan has been documented for the patient 09/26/2024 11:25 AM EDT documented as of this encounter Care Teams Ent Nurse Relationship Specialty Start Date End Date Pcp, [place] [address] PCP - General Family Medicine 12/27/23 documented as of this encounter
== END 2024-12-13 23:59 | disposition home or self-care (01) ==
LOC: LAB.DROPOF 12-14 23:42
PROVIDERS: PCP Family Medicine; Visit Provider Family Medicine
DX: E83.42 Hypomagnesemia (principal); E83.52 Hypercalcemia
CPT/HCPCS: 80053; 83735; 84443

== ENCOUNTER 2024-12-14 09:10 | Emergency (ER) | payer MEDICARE, SELFPAY ==
[2024-12-14 09:17] VITALS: BP 181/100; PULSE 68; RESP 18; TEMP 36.4; O2SAT 96; BMI 33.7
--- NOTE | 2024-12-14 09:21 | PC.NURSE ---
Dr. Dias at [facility] for pt eval
[2024-12-14 09:23] VITALS: BP 181/100; PULSE 68; RESP 18; O2SAT 96
--- OUTSIDE RECORDS SUMMARY | 2024-12-14 09:23 | XMS_ITS | Clinical Summary ---
Author Organization Healthcare Address [address] [place] [address] Care Team Providers Care Clay Digger Name Role Phone Pcp, No Primary Care Provider Unavailabl e Allergies No known active allergies Medications atorvastatin (Lipitor) 40 MG tablet Take 1 tablet (40 mg) by mouth Daily. Active aspirin 162.5 MG split tablet Take 2 split tablet (325 mg) by mouth 3 times a week. Active potassium chloride CR (Klor-Con M10) 10 MEQ ER tablet Take 1 tablet (10 mEq) by mouth 1 (one) time each day. Do not crush or chew. Active Turmeric (QC TUMERIC COMPLEX PO) Take by mouth. Active losartan-hydroCH LOROthiazide (Hyzaar) 100-25 MG tablet Take 1 tablet by mouth 1 (one) time each day. Active spironolactone (Aldactone) 25 MG tablet Take 1 tablet by mouth daily. 08/27/2024 Active magnesium oxide (Mag-Ox) 400 MG tabletIndication s:Hypomagnesemia Take 1 tablet by mouth in the morning and 1 tablet before bedtime. 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); Primary hyperparathyroidism (CMS/HCC); Hypomagnesemia; Osteoporosis, unspecified osteoporosis type, unspecified pathological fracture presence 09/26/2024 Travel from Last 3 Months Immunizations Immunization Administration Dates Next Due TD (adult), 2 Lf tetanus tox oid, preservative free, adsorbed 09/04/1996 Social History Tobacco Use Types Packs/Day Years Used Date Smoking Tobacco: Never Smokeless Tobacco: Never Alcohol Use Standard Drinks/Week Comments Never 0 (1 standard drink = 0.6 oz pur e alcohol) PHQ-2 Answer Date Recorded Patient Health Questionnaire-2 Score 0 03/21/2024 Comments Unknown Sex and Gender Information Value Date Recorded Sex Assigned at Not on file Legal Sex Female 12:08 PM EDT Gender Identity Not on file Sexual Orientation Not on file Last Filed Vital Signs Vital Sign Reading Time Taken Comments Blood Pressure 123/87 09/26/2024 10:42 AM EDT Pulse 64 09/26/2024 10:42 AM EDT Temperature 36.3 C (97.3 F) 01/16/2024 3:33 PM EDT Respiratory Rate - - Oxygen Saturation 99% 09/26/2024 10: 42 AM EDT Inhaled Oxygen Concentration - - Weight 77.1 kg (169 lb 15.6 oz) 025 10:42 AM EDT Height 149.9 cm (4' 11 ) 09/26/2024 10: 42 AM EDT Body Mass Index 34.33 09/26/2024 10:42 AM EDT Plan of Treatment Upcoming Encounters Date Type Department Care Team (Late st Contact Info) Description 04/01/2025 10:20 AM EDT Office Visit [facility], [place] [address], [address] [place] [address] Skylar Galeana MD [address] [address] Health Maintenance Due Date Last Done Comments [facility]-Hepatitis C Screening 1945 [facility]-Medicare Annual Wellness (AWV) 1945 [facility]-Infant/Child/Adol SDOH Screenings 1945 [facility]- SDOH Screenings 1964 [facility]-Adult SDOH Screenings 1964 [facility]-Pneumococcal Vaccine: 50 + Years (1 of 1 - PCV) 1996 [facility]-Zoster Vaccines (1 of 2) 1996 [facility]-DTaP,Tdap,and Td Vaccine s (1 - Tdap) 09/05/1996 09/04/1996 [id number] Vaccine (3 - Moderna risk series) 10/08/2020 09/10/2020, 08/13/2020 [facility]-RSV Vaccine: 60+ Years o r (1 - 1-dose 75+ series) 2021 [facility]-Bone Density Scan 02/07/2025 02/08/2024 [facility]-Influenza Vaccine (Seaso n Ended) 2025 [facility]-Depression Screening 03/21/2025 03/21/2024 [facility]-Obesity Intervention Completed 025, 03/21/2024, 01/16/2024 HPV Vaccines Aged Out No longer eligi ble based on patient's age to complete this topic [facility]-HIB Vaccines Aged Out No longer e ligible based on patient's age to complete this topic [facility]-Hepatitis A Vaccines Aged Out No longer eligible based on patient's age to complete this topic [facility]-IPV Vaccines Aged Out No longer e ligible based on patient's age to complete this topic [facility]-Rotavirus Vaccines Aged Out No lo nger eligible based on patient's age to complete this topic Procedures Procedure Name Priority Date/Time Associated Diagnosis Comments TSH Routine 09/26/2024 11:40 AM EDT 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 FREE T4, PLASMA Routine 09/26/2024 11:40 AM EDT 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) DEXA BONE DENSITY Routine 02/08/2024 9:1 1 AM EDT from Last 3 Months or Most Recently Relevant to Health Maintenance Results * (ABNORMAL) Ionized calcium, serum (09/26/2024 11:40 AM EDT) Ionized Calcium, Serum 5.8(H) 4.6 - 5.3 mg/dL LAB HEMATOLOGY METHOD 09/26/2024 2:25 PM EDT [facility] Blood Venous blood specimen / Unknown Venipuncture / Unknown 09/26/2024 11:40 AM EDT 09/26/2024 11:40 AM EDT us Skylar Galeana MD LAB BLOOD ORDERABLES Final R esult [facility] [address] [place] [phone] * Vitamin D 25 Hydroxy (09/26/2024 11:40 AM EDT) Vitamin D 25 Hydroxy 49.0 20.0 - 80.0 ng/mL 09/26/2024 4:47 PM EDT [facility] Blood Venous blood specimen / Unknown Venipuncture / Unknown 09/26/2024 11:40 AM EDT 09/26/2024 11:40 AM EDT Narrative [facility] - 09/26/2024 4:47 PM EDT Testing performed on [employer], standardized against NIST SRM 2972. When testing samples from patients whose predominant form of vitamin D is vitamin D2, such as patients receiving vitamin D2 supplementation, results that are subtherapeutic should be confirmed with another method, such as LC-MS/MS, before being used for patient management. Vitamin D, 25-Hydroxy reference range, age 18 years and up: Deficiency: <12 ng/mL Insufficiency: 12 to 19 ng/mL Sufficiency: 20 to 80 ng/mL Possible toxicity: >100 ng/mL Skylar Galeana MD LAB BLOOD ORDERABLES Final R esult Performing Organization Address City/[facility]/[place] [address] * Thyroid Stimulating Hormone, Plasma (09/26/2024 11:40 AM EDT) Thyroid Stimulating Hormone, Plasma 3.11 0.40 - 4.20 uIU/mL 09/26/2024 3:29 PM EDT [facility] Blood Venous blood specimen / Unknown Venipuncture / Unknown 09/26/2024 11:40 AM EDT 09/26/2024 11:40 AM EDT Skylar Galeana MD LAB BLOOD ORDERABLES Final R esult Performing Organization Address City/[facility]/ZIP Co de Phone Number [facility] [address] [place] [address] * Free T4, Plasma (09/26/2024 11:40 AM EDT) Free T4, Plasma 1.5 0.8 - 1.7 ng/dL 09/26/2024 3:29 PM EDT [facility] Blood Venous blood specimen / Unknown Venipuncture / Unknown 09/26/2024 11:40 AM EDT 09/26/2024 11:40 AM EDT Skylar Galeana MD LAB BLOOD ORDERABLES Final R esult Performing Organization Address City/[facility]/ZIP Co de Phone Number [facility] [address] [place] [address] * Phosphorus, Plasma (09/26/2024 11:40 AM EDT) Phosphorus, Plasma 2.7 2.5 - 4.5 mg/dL 09/26/2024 3:29 PM EDT [facility] Blood Venous blood specimen / Unknown Venipuncture / Unknown 09/26/2024 11:40 AM EDT 09/26/2024 11:40 AM EDT Skylar Galeana MD LAB BLOOD ORDERABLES Final R esult Performing Organization Address City/[facility]/ZIP Co de Phone Number [facility] [address] [phone] * (ABNORMAL) PTH Intact Total (09/26/2024 11:40 AM EDT) [facility] PTH Intact Total 152(H) 9 - 77 pg/mL 09/26/2024 6:02 PM EDT [facility] Blood Venous blood specimen / Unknown Venipuncture / Unknown 09/26/2024 11:40 AM EDT 09/26/2024 11:40 AM EDT Narrative [facility] - 09/26/2024 6:02 PM EDT Assay performed by immunoassay at the [facility]. Performed on [employer] chemiluminescent immunoassay, tractable to the World Health Organization's first international standard for PTH from the [facility], Code 79/500. Results obtained from different test methods or kits cannot be used interchangeably. Skylar Galeana MD LAB BLOOD ORDERABLES Final R esult [facility] [address] [place] [address] * (ABNORMAL) Magnesium, Plasma (09/26/2024 11:40 AM EDT) Pathologist [facility] Magnesium, Plasma 1.6(L) 1.9 - 2.4 mg/dL 09/26/2024 3:29 PM EDT [facility] Blood Venous blood specimen / Unknown Venipuncture / Unknown 09/26/2024 11:40 AM EDT 09/26/2024 11:40 AM EDT us Skylar Galeana MD LAB BLOOD ORDERABLES Final R esult [facility] [address] [place] [address] * (ABNORMAL) Comprehensive Metabolic Panel, Plasma (09/26/2024 11:40 AM EDT) Glucose, Plasma 86 74 - 99 mg/dL 09/26/2024 3:29 PM EDT [facility] BUN, Plasma 35(H) 8 - 23 mg/dL 09/26/2024 3:29 PM EDT [facility] Creatinine, Plasma 1.15(H) 0.60 - 1.10 mg/dL 09/26/2024 3:29 PM EDT [facility] BUN/Creatinine Ratio 30 09/26/2024 3:29 PM EDT [facility] Sodium, Plasma 138 136 - 145 mmol/L 09/26/2024 3:29 PM EDT [facility] Potassium, Plasma 4.7 3.6 - 4.9 mmol/L 09/26/2024 3:29 PM EDT [facility] Chloride, Plasma 101 97 - 107 mmol/L 09/26/2024 3:29 PM EDT [facility] CO2, Plasma 27 22 - 29 mmol/L 09/26/2024 3:29 PM EDT [facility] Anion Gap 10 6 - 16 mmol/L 09/26/2024 3:29 PM EDT [facility] Total Calcium, Plasma 10.7(H) 8.9 - 10.2 mg/dL 09/26/2024 3:29 PM EDT [facility] Total Protein 7.9 6.3 - 7.9 g/dL 09/26/2024 3:29 PM EDT [facility] Albumin, Plasma 4.4 3.5 - 5.2 g/dL 09/26/2024 3:29 PM EDT [facility] AST, Plasma 41(H) 10 - 35 U/L 09/26/2024 3:29 PM EDT [facility] ALT, Plasma 30 10 - 35 U/L 09/26/2024 3:29 PM EDT [facility] Alkaline Phosphatase, Plasma 120 46 - 142 U/L 09/26/2024 3:29 PM EDT [facility] Total Bilirubin, Plasma 0.4 0.2 - 1.1 mg/dL 09/26/2024 3:29 PM EDT [facility] eGFRcr 48.9 mL/min/1.7 3m*2 09/26/2024 3:29 PM EDT [facility] Comment:Reported eGFRcr in m L/min/1.73m2 is based the CKD-EPI 2020 equation that does not use a race coefficient. Blood Venous blood specimen / Unknown Venipuncture / Unknown 09/26/2024 11:40 AM EDT 09/26/2024 11:40 AM EDT Skylar Galeana MD LAB BLOOD ORDERABLES Final R esult [facility] [address] [place] [phone] * Dexa Bone Density (02/08/2024 9:11 AM EDT) Anatomical Region Laterality Modality L-spine Radiographic Keisha ging Skylar Galeana MD IMG DXA PROCEDURES Final Res ult from Last 3 Months or Most Recently Relevant to Health Maintenance Insurance MEDICARE [facility] Care Teams Clay Digger Relationship Specialty Start Date End Date Pcp, [place] [address] PCP - General Family Medicine 12/27/23
--- OUTSIDE RECORDS SUMMARY | 2024-12-14 09:23 | XMS_ITS | Data Portability ---
Author Organization DELVIN BRADY [place] [facility] Address [address] [place] [address] Care Team Providers Care Digital Associate Media Director Name Role Phone NATHAN GARDNER Fish Conservationist NILTON LUKE Lump Receiver SAMY STFAFORD Primary Care Provider Assessment No assessment recorded. Plan of Treatment Reminders Order Date Submit Date Provider Last Modified By Organization Details Last Modified Time Details Appointments LEVEL 2 026 10:45AM NATHAN GARDNER MD Not available Not available Not available Lab None recorde d. Referral None recorde d. Procedures None recorde d. Surgeries None recorde d. Imaging None recorde d. Medication Orders None recorde d. Patient TargetsNo targets recorded. Patient Instructions Encounter Date Encounter Id Patient Instructions Last Modified By Organization Details Last Modified Time 10/04/2022 [id number] 1. T4, T3, CA, Ionized CA, PTH, TSH and thyroid antibodies obtained in office today. 2. Tinnitus management discussed with patient. Such as using ear protection to prevent further hearing loss, utilizing white noise at night when sleeping etc. DISCONTINUE TAKING MECLIZINE 3. f/u 1 y [email or web address] Not available 10/04/2022 15:10:42 12/15/2023 [id number] 1. Referred to Endocrinology & Endocrine Surgeon Dr. Jeremy Carrillo 2. CT report reviewed in office today. Results discussed with patient. 3. F/u prn [email or web address] Not available 12/15/2023 10:03:35 Reason for Referral None Reported. Results Created Date Observation Date Name Description Value Unit Range Abnormal Flag Note LastModifiedBy Organization Detail LastModifiedTime 10/05/19 23 10/04/2022 CALCI UM calcium 10.4 mg/dL 8.6-10 .2 high Not Available [facility] [address] [place] [address], [address], 10/04/2022 18:53:13 10/05/19 23 10/04/2022 T4 (THYR OXINE ) T4 (thyroxine) 5.95 ug/dL 4.50-1 1.70 normal Not Available [facility] [address] [place] [address], [address], 10/04/2022 19:05:19 10/05/19 23 10/04/2022 TSH TSH 49.900 uIU/m L 0.270- 4.200 high Not Available [facility] [address] [place] [address], [address], 10/04/2022 19:05:20 10/05/19 23 10/04/2022 T3, TOTAL T3, total 77 NG/dL 80-200 low Not Available [facility] [address] [place] [address], [address], 10/04/2022 19:05:22 10/05/1910/04/2022 PTH, INTAC T WITH CA PTH, intact 83.0 pg/mL 15.0-6 5.0 high INTER PRETI VE GUIDE ===== ===== ===== ===== ===== ===== ===== ===== ===== ===== ===== === PTH CALCI UM CONDI TION ===== ===== ===== ===== ===== ===== ===== ===== ===== ===== ===== = Daksha l Daksha l Daksha l Parat hyroi d _ Low or Low Hypop venancio yroid ism Low Daksha l _ Daksha l or High Prima ry Hyper parat hyroi dism High __ High Daksha l or Secon zoey Hyper parat hyroi dism Low __ High High Terti tawnya Hyper parat hyroi dism __ Low or High Non-P venancio yroid Hyper calce suly Low Daksha l ===== ===== ===== ===== ===== ===== ===== ===== ===== ===== ===== ==== Not Available [facility] [address] [place], [address], 10/04/2022 19:22:51 10/05/19 23 10/04/2022 PTH, INTAC T WITH CA calcium 9.7 mg/dL 8.6-10 .2 normal Not Available [facility] [address] [place], [address], 10/04/2022 19:22:51 10/05/19 23 10/05/2022 THYRO GLOBU MARISA AB thyroglobuli n Ab 240 IU/mL < or = 1 high TEST PERFO RMED AT: [facility] [address] [place] [address] [place] V SD S Not Available [facility] [address] [place], [address], 10/05/2022 13:22:03 10/05/19 23 10/06/2022 IONIZ ED CALCI UM ionized calcium 5.2 mg/dL 4.7-5. 5 normal TEST [facility]FO RMED AT[facility] [address] [place] [address] [place] V SD S Not Available [facility] [address] [place], [address], 10/06/2022 18:31:56 10/21/19 23 10/13/2022 CT, neck, soft tissu e, w/wo contr ast [facility] [address] [place] [address] Patien t Name: TANNA Weiner t : 946 [address] t Orderi ng Provid er: JAYLON CHAN STARR EXAM DATE: 2022 EXAM: CT PARATH YROID W/WO CONTRA ST CLINIC AL INFORM ATION: Past histor y of right superi or parath yroide ctomy and right cervic al lymph node resect ion. Florid Hashim jessica thyroi ditis. TECHNI QUE: No POC testin g for eGFR was perfor med due to absenc e of risk factor s. Multip le axial CT images of the neck were obtain ed before and after after inject ion of 100 mL Optira y 320 (1 x 100 mL bottle of [facility] [place] [address]-1 1). None was wasted and discar ded. 4D CT protoc ol tailor ed for parath yroid adenom a was used. COMPAR GUSTABO: None. FINDIN GS: PARATH YROID ADENOM A SEARCH : Study qualit y is excell ent. Previo usly seen right parath yroid adenom a has been resect ed. No recurr ence is seen. No other nodule sugges tive of a parath yroid adenom a has been demons trated . OTHER FINDIN GS: Mucosa l thicke lanette is seen in the left maxill tawnya sinus No pharyn geal abnorm ality is seen. Larynx and airway is normal . Thyroi d gland is atroph ic and shows hetero geneou s enhanc ement. . A few signif icant lympha denopa thy seen. IMPRES SHEILA: 1. Resect ion of previo us right parath yroid adenom a.. 2. No eviden ce of neopla stic recurr ence. 3. Atroph ic hetero geneou s lesion enhanc ing thyroi d gland consis tent with Hashim jessica's thyroi ditis. 4. No cervic al lympha denopa thy. 5. Left maxill tawnya sinusi tis Interp reted By: Codie Mas MD Electr onical ly Signed By: Codie Mas MD on 023 5:26 PM [email or web address] [facility] [address] [place], [address], 10/22/2022 16:07:58 12/20/19 24 11/22/2023 US, thyro id No observ ation record ed. BARCODE Not Available 2023 14:38:42 Result Notes Documentation Provider Name and Address Organization Details Recorded Time Ct, Neck, Soft Tissue, W/wo Contrast : [address] [place] [address] Patient Name: TANNA NÚÑEZ Patient : 1945 Patient Ordering Provider: DEAN DICKINSON EXAM DATE: 10/13/2022 EXAM: CT PARATHYROID W/WO CONTRAST CLINICAL INFORMATION: Past history of right superior parathyroidectomy and right cervical lymph node resection. Florid Emmanuel thyroiditis. TECHNIQUE: No POC testing for eGFR was performed due to absence of risk factors. Multiple axial CT images of the neck were obtained before and after after injection of 100 mL Optiray 320 (1 x 100 mL bottle of [facility] [place] [address]-52). None was wasted and discarded. 4D CT protocol tailored for parathyroid adenoma was used. COMPARISON: None. FINDINGS: PARATHYROID ADENOMA SEARCH: Study quality is excellent. Previously seen right parathyroid adenoma has been resected. No recurrence is seen. No other nodule suggestive of a parathyroid adenoma has been demonstrated. OTHER FINDINGS: Mucosal thickening is seen in the left maxillary sinus No pharyngeal abnormality is seen. Larynx and airway is normal. Thyroid gland is atrophic and shows heterogeneous enhancement.. A few significant lymphadenopathy seen. IMPRESSION: 1. Resection of previous right parathyroid adenoma.. 2. No evidence of neoplastic recurrence. 3. 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 4. No cervical lymphadenopathy. 5. 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 Active 2015 From Automated Load;Prov ider: Samy Parra;Stat us: Active Not Available [facility] 7 07:04:16 Bilateral age-relat ed nuclear cataracts 00261687787 9100 Active 2015 From Automated Load;Prov ider: Samy Parra;Stat us: Active Not Available [facility] 7 07:04:16 Excess skin of eyelid 083398092 Active 2015 From Automated Load;Prov ider: Samy Parra;Stat us: Active Not Available [facility] 7 07:12:43 Hyperpara thyroidis m 11785673 Active 2021 DEAN DICKINSON MD [address] [place] [address] [place], [address] , [place] [facility] 2 13:15:11 Emmanuel thyroidit is 30476096 Active 2021 DEAN DICKINSON MD [address] [place] [address], [address] , [facility] 13:15:29 Problem Notes None recorded. Procedures Surgical History Date Name Laterality Status Provider Name and Address Organization Details Recorded Time 12/17/19 22 Ears/Nose/Throat Surgery completed Florecita Linn [facility] 12/31/2021 15:22:36 04/13/20 18 excision of basal cell carcinoma completed [facility] 04/24/2018 12:31:21 03/20/20 18 Biopsy Eyelid(s) completed SAMY PARRA MD [address] [place], [address], [facility] 03/20/2018 13:39:55 06/09/20 16 Blepharoplasty completed [facility] 06/17/2016 09:23:23 Appendectomy completed [facility] 06/17/2016 09:22:43 Imaging Results None recorded. Procedure Notes None recorded. Medical Equipment None Reported. Allergies No known drug allergies Medications Name Sig Start Date Stop Date Status Note LastModified by Organization Details LastModified Time atorvasta tin 40 mg tablet Take 1 tablet every day by oral route. active Not Available Not Available No t Available Advil Cold/Sinu s 200 mg-30 mg tablet Take 1 tablet every 4 hours by oral route. 10/05 completed Not Available Not Available Not Available aspirin 325 mg tablet Take 1 tablet every day by oral route. active Not Available Not Available No t Available hydrocodo ne 5 mg-acetam inophen 325 mg tablet Take 1 tablet every 6 hours by oral route as needed. 05/10 completed Not Available Not Available Not Available Nexium 40 mg capsule,d elayed release Daily 03/20 completed Duration : 30 days;Leonard quency: daily;Me dication Descript ion: esomepra zole; Dosage:1 ; Route:or al; refills: 0; Quantity :30 Not Available Not Available Not Available alendrona te 35 mg tablet Take 1 tablet every week by oral route. active Not Available Not Available No t Available levothyro xine 50 mcg tablet Take 1 tablet every day by oral route as directed . 06/07 completed Not Available Not Available Not Available levothyro xine 125 mcg tablet Take 1 tablet every day by oral route for 30 days. 12/14 completed Not Available Not Available Not Available levothyro xine 150 mcg tablet Take 1 tablet every day by oral route. 12/14 completed Not Available Not Available Not Available Advil Cold and Sinus 30 mg-200 mg tablet 03/20 completed Duration : 10 days;Med ication Descript ion: ibuprofe n-pseudo ephedrin e; Route:or al; refills: 0; Quantity :42 tablet Not Available Not Available Not Available losartan 100 mg-hydroc hlorothia zide 12.5 mg tablet Take 1 tablet every day by oral route. active Not Available Not Available No t Available aspirin 81 MG - MWF 05/10 completed Not Available Not Available Not Available levothyro xine active Not Available Not Available Not Available losartan 02/01 completed Not Available Not Available Not Available Nexium 03/20 completed Not Available Not Available Not Available levothyro xine 100 mcg capsule Take 1 capsule every day by oral route. 10/[address] Cinda ball dosage on 10/20/22 Not Available Not Available Not Available loratadin e 10 mg capsule Take by oral route. 05/10 completed Not Available Not Available Not Available Vitals Date Recorded Body height Provider Name an d Address Organization Details Last Updated DateTime 08/09/2022 149.86 cm [facility] 14:10:42 Date Recorded Body height Provider Name an d Address Organization Details Last Updated DateTime 09/07/2023 149.86 cm Fabiola [facility] 09/07/2023 14:01:56 Date Recorded Body height Provider Name an d Address Organization Details Last Updated DateTime 09/10/2024 149.86 cm [facility] 09/10/2024 10:32:35 Date Recorded Body height Body mass index (BMI) Body weight Body temperature Heart rate Systolic blood pressure Diastolic blood pressure Provider Name and Address Organization Details Last Updated DateTime 149.86 cm 33.8 kg/m2 73862.7 3 g 97.2 [degF] 54 /min 138 mm[Hg] 78 mm[Hg] Cookie Amanda [facility] 3 08:58:17 Date Recorded Body height Body mass index (BMI) Body weight Body temperature Heart rate Systolic blood pressure Diastolic blood pressure Provider Name and Address Organization Details Last Updated DateTime 4 149.86 cm 32.9 kg/m2 86025.2 6 g 97.2 [degF] 64 /min 190 mm[Hg] 99 mm[Hg] Rhonda Jin [facility] 4 09:32:16 Social History Question Answer Notes LastModified by [employer] Details LastModified Time Tobacco Smoking Status Former Smoker Magdalena Rodriguezrachel robert [facility] 06/17/2016 09:22:25 What Was The Date Of Your Most Recent Tobacco Screening? 11/13/2018 Information not available 08/21/2019 Has Tobacco Cessation Counseling Been Provided? No Information not available 10/05/2021 Have You Recently Traveled Abroad? No Information not available 10/05/2021 Sex: Unknown Functional Status Question Answer Note LastModified by [employer] Details LastModified Time Do you use any illicit or recreational drugs? No Information not available 10/05/2021 What is your level of alcohol consumption? None Information not available 10/05/2021 Mental Status None recorded. Family History Relationship Description Onset Age of this Age Resolved Age Notes LastModified by Organization Details LastModified Time Sister Diabetes mellitus pgilpin Not available 2015 09:20:13 Mother Diabetes mellitus pgilpin Not available 2015 09:20:13 Mother Headache pgilpin Not available 06/17/2016 09:20:38 Mother Hypertensive disorder pgilpin Not available 2015 09:20:51 Mother Cataract pgilpin Not available 06/17/2016 09:22:12 Medical History Condition Response Diabetes N Diabetic Eye Disease N Eye Trauma N Double Vision N Age-related Macular Degeneration N RD/retinal tear N Ocular trauma N Glaucoma N Lazy Eye N Cataract Y Glasses/Contacts Y Gynecological HistoryNo gynecological history recorded. Obstetrics History GPAL:G 0 P 0 0 0 0 Past Encounters Encounter ID Performer Location Encounter Start Date Encounter Closed Date Diagnosis/Indication Diagnosis SNOMED-CT Code Diagnosis ICD10 Code Diagnosis Note [id number] MD TONY BARRAZA [facility] [address] [place] [address] 06/17/2016 09:09:29 06/17/2016 10:47:30 [id number] MD OTNY BARRAZA [facility] [address] [place] [address] 07/02/2016 11:14:06 07/02/2016 12:06:16 Postoperative visit 458923538 Z09 [id number] MD TONY BARRAZA [facility] [address] [place] [address] 08/31/2016 10:38:41 08/31/2016 16:40:36 Postoperative visit 910119052 Z09 [id number] MD TONY BARRAZA [facility] [address] [place] [address] 03/20/2018 09:13:25 03/20/2018 13:47:08 Lesion of eyelid 826067796 H02.89 lower lid Combined f orm of senile cataract 17620226 H25.819 bilatweral Hypermetropia 29335580 H 52.03 Presbyopia 92066024 H52. 4 [id number] SAMY PARRA MD SURGERY SCHEDULE [address] [place] [address] 04/13/2018 07:01:44 04/13/2018 07:05:58 [id number] MD TONY BARRAZA [place] [address] [place] [address] 04/24/2018 10:35:49 04/25/2018 10:37:33 Postoperative visit 495474853 Z09 [id number] MD TONY BARRAZA [address] [place] [address] 05/23/2018 12:42:05 05/23/2018 17:07:15 Postoperative visit 745649628 Z09 [id number] MD TONY BARRAZA [place] [address] [place] [id number] 11/13/2018 10:32:39 11/14/2018 10:11:05 History of malignant neoplasm of skin 964199236 Z85.828 left lower lid [id number] SAMY PARRA MD [facility] [address] [place] [address] 5 05/28/2019 09:21:49 05/28/2019 12:46:55 Combined form of senile cataract 32793293 H25.819 bilatweral Hypermetropia 79740434 H 52.03 Presbyopia 72465399 H52. 4 [id number] SAMY PARRA MD OPHTHALMO [facility] [address] [place] [address] 5 06/02/2020 08:51:27 06/02/2020 13:16:23 Combined form of senile cataract 91162823 H25.819 bilatweral Bilateral hyperopia of eyes 5425758761 98942 H52.03 History of malignant neoplasm of skin 858219097 Z85.828 LLL [id number] NATHAN GARDNER MD OPHTHALMO [address] [place] [address] 5 06/08/2021 08:56:40 06/08/2021 16:35:58 Basal cell carcinoma of lower eyelid 700669927 C44.111 s/p removal - [facility] Incipient senile cataract 562291730 H25.585 [id number] MD DELVIN MRAQUIS [facility] CL[facility] [address] [place] [address] 10/05/2021 13:17:26 10/12/2021 09:48:37 Hyperparathyroidism 50965513 E21.3 [id number] MD DELVIN MARQUIS [facility] Kristin [facility] CLOSED [address] [place] [address] 11/02/2021 09:38:20 11/02/2021 11:46:52 Parathyroid adenoma 036377906 D35.1 - Parathyroi d CT 10/19/21 = 87n8a70zn of the right tracheoeso phageal groove, characteri stic of a right inferior lobe parathyroi d adenoma; thyroid U/S was essentiall y clear . 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 Observatio n versus injection discussed [id number] MD DELVIN MARQUIS [facility] [address] [place] [address] 02/01/2022 09:21:30 02/01/2022 10:27:04 Emmanuel thyroiditis 07004430 E06.3 Via blood test and biopsy of thyroid nodule; On Levothyrox ine Primary hyperparathyroidism 81829840 E21.0 Status post right superior parathyroi dectomy 12/16/2021 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 Observatio n versus injection discussed; Voice is improving and she wishes to defer injection [id number] MD DELVIN MARQUIS [facility] [address] [place] [address] 05/10/2022 08:42:45 05/10/2022 10:02:22 Hyperthyroidism 16017624 E05.90 [id number] MD DELVIN MARQUIS [facility] [address] [place] [address] 06/07/2022 08:58:07 06/07/2022 13:34:15 Hyperthyroidism 50758249 E05.90 Resolved Hyperparathyroidism 6699 9008 E21.3 Resolved 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 [id number] NATHAN GARDNER MD OPHTHALMO [facility] [address] [address] 08/09/2022 13:01:02 08/09/2022 15:32:54 Basal cell carcinoma of lower eyelid 523275661 C44.111 previouss/ p removal - call for changes/pr oblemsrech german 1 year Incipient senile cataract 878541460 H25.099 progressin g, OS>ODdiscu ssed option of ce - pt would like trial mr todayreche ck 1 year [id number] MD DELVIN MARQUIS [facility] Kristin [facility] CLOSED [address] [place] [address] 10/04/2022 08:46:41 10/04/2022 13:40:04 Emmanuel thyroiditis 66047972 E06.3 - Via blood test and biopsy of thyroid nodule; On Levothyrox ine Bilateral tinnitus 80563 04239 102 H93.13 Recommend audiogram next visit History of primary hyperparathyroidism 1680308777 9106 Z86.39 Status post thyroidect adolfo [id number] NATHAN GARDNER MD OPHTHALMO [facility] [address] [place] [address] 09/07/2023 13:59:45 09/07/2023 15:10:49 Incipient senile cataract 369431585 H25.099 stablecont inue mr Basal cell carcinoma of lower eyelid 901932355 C44.111 previouss/ p removal - call for changes/pr oblemsrech german 1 year [id number] MD DELVIN MARQUIS [facility]NT [address] [place] [address] 12/15/2023 09:23:19 12/15/2023 13:43:19 Hypothyroidism 86784093 E03.9 History of Emmanuel' s in past Primary hyperparathyroidism 60693566 E21.0 Status post right superior parathyroi dectomy 12/16/2021 [id number] NATHAN GARDNER MD [facility]PHTHALMO [facility] [address] [place] [address],[address] [place] [address] 09/10/2024 09:40:46 09/10/2024 11:50:02 Incipient senile cataract 688216018 H25.099 stable new mr today Basal cell carcinoma of lower eyelid 390559146 C44.111 stables/p removal - call for changes/pr oblemsrec german 1 year Health Concerns Section Related Observation LastModified by Organization Detai ls LastModified Time None Recorded Concern Status LastModified by Organization Details LastModified Time None Recorded Advance Directives Directive None Recorded Payers Insurance Date Sequence Insurance Name Policy Number Policy Walsh Covered Member ID Walsh Member ID Guarantor Name 11/21/2024 2 [employer] INSURANCE [employer] [facility] Tanna L Small [id number] Tanna L Small 11/21/2024 2 [employer] (MEDICARE SUPPLEMENT) Tanna L Small Tanna L Small 11/21/2024 2 [employer] (MEDICARE SUPPLEMENT) Tanna L Small [id number] Tanna L Small 11/21/2024 1 [place] Tanna L Small [id number] Tanna L Small 11/21/2024 2 [facility] [employer] (MEDICARE SUPPLEMENT) Tanna L Small [id number] Tanna L Small Notes Date Note Type Note Provider Name and Address Organization Details Recorded Time 08/09/2022 text/html p/t reports good health p/t reports no changes in eye health p/t reports jul.08 with a visit to urgent care center for cough p/t reports after taking medication prescribed at urgent care center, OU red and irritated NATHAN GARDNER MD [facility] [place], [address], [facility] 08/09/2022 15:19:53 10/04/2022 text/html Tanna visits us in office today to f/u on emmanuel thyroiditis. Today Tanna states that she has bene doing well. She has not felt ant new pain or discomforts in her throat. She does mention that she has been hearing a ringing in her bilateral ears for many years. She has been taking meclizine prn to treat tinnitus, which has not helped symptoms. DEAN DICKINSON [facility] [place], [address], [facility] 10/04/2022 15:10:57 12/15/2023 text/html Tanna visits us in office today to discuss her thyroid and parathyroid function. Blood testing shows high PTH (96 pg/ml) and elevated Calcium. Pt has not yet seen an endocrine specialist. Pt is currently taking levothyroxine 50mcg daily. PCP is concerned about the possible development of bone issues from her elevated calcium. She is status post right superior parathyroidectomy 2021. DEAN DICKINSON [facility] [place], [address], [facility] 12/15/2023 18:18:50 OBGyn Episode No OBEpisode recorded.
--- OUTSIDE RECORDS SUMMARY | 2024-12-14 09:23 | XMS_ITS | Encounter Summary ---
Author Organization [facility] Address [address] [place] [address] Care Team Providers Care Reactor Kettle Operator Name Role Phone Pcp, No Primary Care Provider Unavailabl e Reason for Visit * Reason Onset Date Comments Results 09/27/2024 Encounter Details Date Type Department Care Team (Late st Contact Info) Description 09/27/2024 Results Follow-Up [facility] [address] [place] [address] Skylar Galeana MD [address] [facility] [address] [place] [address] Results Social History Tobacco Use Types Packs/Day Years [...] on file Sexual Orientation Not on file documented as of this encounter Miscellaneous Notes * Telephone Encounter - Skylar Galeana MD - 09/28/2024 4:14 PM EDT 09/28/24 4:14 PM Called patient with no answer. Left VM. Sent MyChart 09.27.2024 Skylar Galeana MD Lab Nurse of Endocrinology, Diabetes and Metabolism [facility] documented in this encounter Plan of Treatment Upcoming Encounters Date Type Department Care Team (Late st Contact Info) Description 04/01/2025 10:20 AM EDT Office Visit [facility] [address], [address] [place] [address] Skylar Galeana MD [address] [facility] [address] [place] [address] documented as of this encounter Visit Diagnoses Not on filedocumented in this encounter Additional Health Concerns Assessment Noted Time A fall risk assessment has been complete d for the patient 09/26/2024 10:45 AM EDT A Body Mass Index follow-up plan has been documented for the patient 09/26/2024 11:25 AM EDT documented as of this encounter Care Teams Reactor Kettle Operator Relationship Specialty Start Date End Date Pcp, [place] [address] PCP - General Family Medicine 12/27/23 documented as of this encounter
[2024-12-14] MEDS: 0.9 % SODIUM CHLORIDE 1000ML 1,000 ML 999 ML IV (09:31)
[2024-12-14 09:33] VITALS: BP 134/76; PULSE 72; O2SAT 96
[2024-12-14 09:36] LABS: Albumin Level 4.4 g/dl (3.5-5.0); Basophils % 0.5 % (0.1-2.0); Chloride 106 mmol/L (98-107); Eosinophils # 0.2 Kmm3 (0.0-0.4); Eosinophils % 2.1 % (0.1-12.0); Hematocrit 40.2 % (37.0-47.0); Hemoglobin 13.3 g/dL (12.2-16.2); Immature Granulocytes # 0.02 10^3uL; Immature Granulocytes % 0.3 %; Lymphocytes # 2.3 K/mm3 (0.7-4.5); Lymphocytes % 30.3 % (10-50); Mean Corpuscular HGB Conc 33.1 g/dL (31.8-35.4); Mean Corpuscular Hemoglobin 30.5 pg (27.0-31.2); Mean Corpuscular Volume 92.2 fl (81-99); Mean Platelet Volume 10.4 fl (7.4-10.4); Monocytes # 0.7 K/mm3 (0.1-1.0); Monocytes % 8.8 % (1.7-9.3); Neutrophils # 4.3 K/mm3 (1.8-7.8); Nucleated Red Blood Cells # 0 10^3/uL; Nucleated Red Blood Cells % 0 %; Platelet Count 282 K/mm3 (142-424); Potassium 4.7 mmoL/L (3.5-5.1); Red Blood Count 4.36 M/mm3 (4.20-5.40); Red Cell Distribution Width 13.1 % (11.5-17.5); Red Cell Distribution Width-SD 44.9 fL; Sodium 139 mmol/L (136-145); White Blood Count 7.5 K/mm3 (4.8-10.8)
[2024-12-14 09:39] LABS: Alanine Aminotransferase 28 U/L (12-78); Albumin/Globulin Ratio 1.2 (1.1-1.8); Alkaline Phosphatase 103 U/L (38-126); Anion Gap 7.7 mEq/L (5-15); Aspartate Amino Transferase 40 U/L (14-36); Bilirubin,Total 0.5 mg/dl (0.2-1.3); Blood Urea Nitrogen 37 mg/dl (7-17); Carbon Dioxide 30 mmol/L (22.0-30.0); Creatinine Clearance Estimated 40 mL/min (50-200); Estimated Glomerular Filt Rate 36 ml/min (>60); GFR (African American) 44 ML/MIN (>60); Globulin 3.7 g/dL (1.3-3.2); Total Protein,Serum 8.1 g/dl (6.3-8.2)
[2024-12-14 09:40] LABS: Calcium 10.8 mg/dl (8.4-10.2); Glucose 108 mg/dl (74-100)
--- NOTE | 2024-12-14 10:00 | HMH.EDGENADL ---
Discharge Plan Disposition Patient Disposition: Home, Self-Care Prescriptions Prescriptions: New losartan 100 mg tablet 100 mg PO DAILY Qty: 30 3RF furosemide [Lasix] 40 mg tablet 40 mg PO DAILY Qty: 30 3RF Discontinued losartan-hydrochlorothiazide 100-25 mg tablet 1 tab PO DAILY Qty: 30 5RF No Action aspirin 81 mg tablet 81 mg PO DIRECTED Patient Comments: 3 times per week, mon, wed, fri levothyroxine 75 mcg tablet 75 mcg PO DAILY diclofenac sodium 1 % gel 4 g topical QID PRN (Reason: pain ) 30 Days Qty: 100 2RF Rx Instructions: apply to single, ankle, foot; for foot includes sole/toes/top of foot spironolactone [Aldactone] 25 mg tablet 25 mg PO DAILY Qty: 30 5RF magnesium oxide 400 mg (241.3 mg magnesium) tablet 400 mg PO BID Qty: 45 1RF Rx Instructions: 1 PO BID for 2 weeks, then 1 daily Referrals Follow up/Referrals: Soto Narayanan MD [Primary Care Provider, Family Practice] - See instructions Activity Restrictions/Add. Instructions Additional Instructions/Restrictions: Discontinue taking losartan/hydrochlorothiazide. Begin taking losartan and furosemide separately, there was no combination pill in order for me to send in, so will be 2 separate pills from here on out. Follow with your family doctor, cardiology, as well as endocrinology for further evaluation and management to make sure your levels are trending appropriately. Call your family doctor to establish care for this visit to the emergency department and schedule follow-up within 48 hours to ensure improvement. If you have any worsening of your condition or any other concerning signs or symptoms, return to the emergency department or your primary care doctor for further evaluation. Clinical Impressions Clinical Impression: Hypercalcemia Print Language Print Language: Angolan Discharge ED Provider: Selvin Dias General Adult HPI General Chief complaint: Recheck/Abnormal Lab/Rx Stated complaint: Sent by Dr. Narayanan for fluids/blood work Time Seen by Provider: 12/14/24 09:18 Mode of Arrival: Ambulatory Source of Information: Patient and Relative Description of Symptoms (Recalled from ER Triage Doc. by RN): Patient presents to ED after her PCP sent her here after receiving her blood work results. Patient states she was seen yesterday for low energy, dizzy, and increased fatigue. Patient is also c/o of her legs/feet cramping. Patient states sent patient here since her calcium was increased on her bloodwork. Patient denies being in pain. History of Present Illness HPI narrative: Please note that above description of symptoms, in this electronic medical record under categorization of recalled from ER triage doctor by RN are reflective of an initial nursing assessment, however, is not reflective of my full history and physical exam that was personally taken and clarified. Consequentially, this preceding description of symptoms, which may include the patient's categorized chief complaint in the EMR, do not reflect my personal clinical impression, and the ultimate description of history of present illness and patient stated complaints should be deferred to this section of the note. Unless stated otherwise or congruent with this section of the note, additional signs, symptoms, or incongruence should be interpreted as inaccurate with my clinical impression. Related Data Home Medications ?Medication ?Instructions ?Recorded ?Confirmed aspirin 81 mg tablet 81 mg PO DIRECTED 01/27/23 12/14/24 levothyroxine 75 mcg tablet 75 mcg PO DAILY 07/30/24 12/14/24 Previous Rx's ?Medication ?Instructions ?Recorded diclofenac sodium 1 % topical gel 4 g topical QID PRN pain 30 days 01/17/24 #100 grams spironolactone 25 mg tablet 25 mg PO DAILY #30 tabs 08/27/24 (Aldactone) magnesium oxide 400 mg (241.3 mg 400 mg PO BID #45 tabs 10/24/24 magnesium) tablet furosemide 40 mg tablet (Lasix) 40 mg PO DAILY #30 tabs 12/14/24 losartan 100 mg tablet 100 mg PO DAILY #30 tabs 12/14/24 Allergies Allergy/AdvReac Type Severity Reaction Status Date / Time No Known Allergies Allergy Verified 12/13/24 10:04 [facility] Disclaimer: The information contained in this section may have been updated after the patient was seen, as this information can be updated by other users. Medical History Hypomagnesemia Hyperparathyroidism Hypercalcemia Edema of left lower leg Moderate tricuspid regurgitation Stenosis of carotid artery This is an old records. However carotid Dopplers reveal nothing greater than 20% narrowing. Will just follow at this point. Diastolic dysfunction Surgical History S/P removal of parathyroid gland Apparently this patient had her parathyroid removed. Will recheck her parathyroid hormone levels as well as her thyroid panel levels see below. Social History Smoking Status: Never smoker alcohol intake: never substance use type: denies use current occupational status: unemployed Travel in the last 8 weeks?: None Other Medical History Have you received the Flu Vaccine for this season: Yes Have you received the Pneumonia Vaccine: Yes ROS Obtained: Yes All systems reviewed & no additional complaints except as documented Physical Exam General General appearance: alert Head Head exam: atraumatic and normocephalic Eye Eye exam: Present normal appearance, PERRL and EOMI Neck Neck exam: Present normal inspection, full ROM and trachea midline Respiratory Respiratory exam: Absent respiratory distress, wheezes, stridor, accessory muscle use or prolonged expiratory phase Cardiovascular Cardiovascular exam: Present other (Pulses equal symmetric in upper and lower extremities) Abdominal Exam Abdominal exam: Present soft; Absent distention, tenderness or pulsatile mass Extremities Exam Extremities exam: Absent edema Neurological Exam Neurological exam: Present alert, oriented X3 and CN II-XII intact; Absent motor sensory deficit Skin Skin exam: Present warm and dry; Absent diaphoresis or erythema Medical Decision Making Medical Records Medical records reviewed: Yes I reviewed the patient's medical records. Screening: Per USPSTF and CDC recommendations, given the prevalence of disease in our region, it is our hospital?s policy to screen for HIV and viral Hepatitis for all patients aged 18 and over and those with ongoing risk factors. Steven Inquiry Pt receiving controlled substance: No Steven was queried for this patient: No Vital Signs: 12/14/24 09:17 12/14/24 09:23 12/14/24 09:33 Temperature 97.6 F Temperature Source Oral Pulse Rate 72 Pulse Rate [Right Brachial] 68 68 Respiratory Rate 18 18 Blood Pressure 134/76 Blood Pressure [Right Arm] 181/100 H 181/100 H Blood Pressure Mean [Right Arm] 127 127 Blood Pressure Source [Right Arm] Automatic Cuff Automatic Cuff Blood Pressure Position [Right Arm] Sitting Supine 02 Sat by Pulse Oximetry 96 96 96 Oxygen Delivery Method Room Air Room Air Room Air 12/14/24 10:30 Temperature Temperature Source Pulse Rate 53 L Pulse Rate [Right Brachial] Respiratory Rate Blood Pressure 132/75 Blood Pressure [Right Arm] Blood Pressure Mean [Right Arm] Blood Pressure Source [Right Arm] Blood Pressure Position [Right Arm] 02 Sat by Pulse Oximetry 100 Oxygen Delivery Method Room Air Lab Data Lab Results 12/14/24 09:20: WBC 7.5, RBC 4.36, Hgb 13.3, Hct 40.2, MCV 92.2, MCH 30.5, MCHC 33.1, RDW 13.1, Plt Count 282, MPV 10.4, Neut % (Auto) 58.0, Lymph % (Auto) 30.3, Mckinley % (Auto) 8.8, Eos % (Auto) 2.1, Baso % (Auto) 0.5, Neut # (Auto) 4.3, Lymph # (Auto) 2.3, Mckinley # (Auto) 0.7, Eos # (Auto) 0.2, Baso # (Auto) 0.0, Sodium 139, Potassium 4.7, Chloride 106, Carbon Dioxide 30, Anion Gap 7.7, BUN 37 H, Creatinine 1.40 H, Estimated Creat Clear 40, Estimated GFR 36 L, Est GFR ( Amer) 44 L, Glucose 108 H D, Calcium 10.8 H, Total Bilirubin 0.5, AST 40 H, ALT 28, Alkaline Phosphatase 103, Total Protein 8.1, Albumin 4.4, Globulin 3.7 H, Albumin/Globulin Ratio 1.2 12/14/24 09:20 12/14/24 09:20 Orders (Tests/Meds): ED MEDICATIONS Discontinued Medications Generic Name Dose Route Start Last Admin Trade Name Freq PRN Reason Stop Dose Admin Furosemide 40 mg 12/14/24 10:04 12/14/24 10:23 Furosemide 40mg/4ml Vial IV 12/14/24 10:05 40 mg ONCE ONE Administration Sodium Chloride 1,000 mls @ 999 mls/hr 12/14/24 09:27 12/14/24 09:31 Sod Chlor 0.9% 1000ml Bag IV 12/14/24 10:27 999 mls/hr .Q1H1M ONE Administration ORDERS Category Date Time Status Complete Blood Count Auto Diff Stat Lab 12/14/24 09:20 Completed Comprehensive Metabolic Panel Stat Lab 12/14/24 09:20 Completed Medical Decision Narrative: 79-year-old female presenting with hypercalcemia that is asymptomatic. She had a parathyroidectomy in 2022 and has not needed calcium supplementation since that time, has been largely hypercalcemic since that time managed by cardiology, nephrology, endocrinology. Had routine labs drawn with her PCP just yesterday, hypercalcemic over 12.2, was recommended she come to the emergency department for further evaluation. History obtained the patient and patient's PCP. On arrival, very clinically ill. Denies any current symptoms including chest pain, arrhythmia, abdominal pain, vomiting, confusion, muscle cramps, but states that she has battled muscle cramping over the past couple weeks to months. No other associated symptoms. On arrival, patient hemodynamically stable, alert, oriented x4, appropriate, GCS 15, moving all extremities spontaneously, pupils equal and reactive to light. Full physical exam performed and significant for well-appearing female no acute distress. Cardiopulmonary exam normal. Mentating appropriately. No acute or complaints, she is normotensive and nontachycardic. Differential includes medication induced, supplementation, hypercalcemia of malignancy, remnant parathyroid tissue, among others. Patient placed on continuous cardiac monitoring and continuous pulse ox with initial blood pressure 134/76, heart rate 72, saturation 96% on room air. Patient was given 1 L normal saline, IV Lasix for symptomatic management and correction of underlying abnormalities. Workup independently interpreted and significant for nonactionable CBC. Chemistry with mild GHAZALA on CKD with creatinine 1.4 and BUN 37. Patient's calcium 10.8 today down from 12.2 just yesterday, given fluids for this. On reevaluation, patient resting comfortably. 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 Thiazide diuretics can commonly cause hypercalcemia, so I imagine she was likely started on this by cardiology or nephrology, or someone after parathyroidectomy to prevent need for constant supplementation. She is also taking vitamin D supplementation. It was recommended that she continue taking her vitamin D, but patient will be switched from thiazide diuresis to loop diuresis using furosemide today moving forward. Recommend she follow-up with her family doctor, endocrinologic, automation engineering technician, etc. for further management. No acute concern for malignancy given no systemic signs or symptoms, no smoking history, history of COPD, cough, and patient appears to be persistently hypercalcemic for years. Because patient at baseline without signs or symptoms of clinical decompensation, deemed appropriate for discharge. Results were relayed to patient who voiced understanding and were agreeable to outpatient management and follow up. I discussed my clinical impression with patient and answered all questions. At this time, the evidence for any other entities in the differential is insufficient to warrant any further testing or ED observation. This was explained as well. Advisory was given that persistent or worsening symptoms require further evaluation. I confirmed the understanding of this discussion. Tilt Tray Driver disclaimer Much of this encounter note is an electronic social media community manager spoken language to printed text. Electronic social media community manager of the spoken language may permit errors. Although I have reviewed the note, some errors may still exist. Critical Care Critical Care Time Critical Care Time: No
[2024-12-14] MEDS: FUROSEMIDE 40MG/4ML VIAL 40 MG IV (10:23)
[2024-12-14 10:30] VITALS: BP 132/75; PULSE 53; O2SAT 100
--- NOTE | 2024-12-14 10:36 | PC.NURSE ---
pt assisted to the restroom without complications. family at BS
[2024-12-14 10:49] VITALS: BP 132/75; PULSE 60; RESP 20; TEMP 37; O2SAT 97
== END 2024-12-14 10:57 | disposition home or self-care (01) ==
PROVIDERS: Emergency Provider Emergency Medicine; PCP Family Medicine
DX: E83.52 Hypercalcemia (principal); E87.5 Hyperkalemia; M85.80 Other specified disorders of bone density and structure, unspecified site; R60.9 Edema, unspecified
CPT/HCPCS: 80053; 85025; 96361; 96374; 99284; J1938; J7030

== ENCOUNTER 2024-12-25 09:39 | Outpatient (CLI) | payer MEDICARE, SELFPAY ==
--- OUTSIDE RECORDS SUMMARY | 2024-12-25 09:41 | XMS_ITS | Clinical Summary ---
Author Organization Healthcare Address [address] [place] [address] Care Team Providers Care Surgical Instrument Mechanic Name Role Phone Pcp, No Primary Care [...] Follow-Up [facility] [address] [place] [id number] Skylar Galeana MD Results 09/26/2024 10:20 AM EDT Office Visit [facility] [address], [address] [place] [address] Skylar Galeana MD Hypothyroidism due [...] Description 04/01/2025 10:20 AM EDT Office Visit [facility] [address], [address] [place] [address] Skylar Galeana MD [address] [address] Health Maintenance Due Date Last Done Comments [facility]-Hepatitis C Screening 1945 [facility]-Medicare Annual Wellness (AWV) 1945 [facility]-Infant/Child/Adol SDOH Screenings 1945 [facility]- SDOH Screenings 1964 [facility]-Adult SDOH Screenings 1964 [facility]-Pneumococcal Vaccine: 50 + Years (1 of 1 - PCV) 1996 [facility]-Zoster Vaccines (1 of 2) 1996 [facility]-DTaP,Tdap,and Td Vaccine s (1 - Tdap) 09/05/1996 09/04/1996 [id number] Vaccine (3 - Moderna risk series) 10/08/2020 [...] Routine 09/26/2024 11:40 AM EDT Primary hyperparathyroidism (CMS/[facility]ER[facility]) Hypomagnesemia PHOSPHORUS, PLASMA Routine 09/26/2024 11:40 AM EDT Primary hyperparathyroidism (CMS/HCC) PTH INTACT TOTAL Routine 09/26/2024 11:40 AM EDT Primary hyperparathyroidism ([facility]) DEXA BONE DENSITY Routine 02/08/2024 9:1 1 AM EDT from Last 3 Months or Most Recently Relevant to Health Maintenance Results * (ABNORMAL) Ionized calcium, serum (09/26/2024 11:40 AM EDT) Ionized Calcium, Serum 5.8(H) 4.6 - 5.3 mg/dL LAB HEMATOLOGY METHOD 09/26/2024 2:25 PM EDT [facility] Blood Venous blood specimen / Unknown Venipuncture / Unknown 09/26/2024 11:40 AM EDT 09/26/2024 11:40 AM EDT us Skylar Galeana MD LAB BLOOD ORDERABLES Final R esult [facility] [address] [place] [id number] * Vitamin D 25 Hydroxy (09/26/2024 11:40 AM EDT) Vitamin D 25 Hydroxy 49.0 20.0 - 80.0 ng/mL 09/26/2024 4:47 PM EDT [facility] Blood Venous blood specimen / Unknown Venipuncture / Unknown 09/26/2024 11:40 AM EDT 09/26/2024 11:40 AM EDT Narrative [facility] - 09/26/2024 4:47 PM EDT Testing performed on [employer], standardized against NIST SRM 2972. When testing [...] ORDERABLES Final R esult Performing Organization Address City/[facility]/[place] [address] * Thyroid Stimulating Hormone, Plasma (09/26/2024 11:40 AM EDT) Thyroid Stimulating Hormone, Plasma 3.11 0.40 - 4.20 uIU/mL 09/26/2024 3:29 PM EDT [facility] Blood Venous blood specimen / Unknown Venipuncture / Unknown 09/26/2024 11:40 AM EDT 09/26/2024 11:40 AM EDT Skylar Galeana MD LAB BLOOD ORDERABLES Final R esult Performing Organization Address City/[facility]/ZIP Co de Phone Number [facility] [address] [place] [address] * Free T4, Plasma (09/26/2024 11:40 AM EDT) Free T4, Plasma 1.5 0.8 - 1.7 ng/dL 09/26/2024 3:29 PM EDT [facility] Blood Venous blood specimen / Unknown Venipuncture / Unknown 09/26/2024 11:40 AM EDT 09/26/2024 11:40 AM EDT Skylar Galeana MD LAB BLOOD ORDERABLES Final R esult Performing Organization Address City/[facility]/ZIP Co de Phone Number [facility] [address] [place] [address] * Phosphorus, Plasma (09/26/2024 11:40 AM EDT) Phosphorus, Plasma 2.7 2.5 - 4.5 mg/dL 09/26/2024 3:29 PM EDT [facility] Blood Venous blood specimen / Unknown Venipuncture / Unknown 09/26/2024 11:40 AM EDT 09/26/2024 11:40 AM EDT Skylar Galeana MD LAB BLOOD ORDERABLES Final R esult Performing Organization Address City/[facility]/ZIP Co de Phone Number [facility] [address] [phone] * (ABNORMAL) PTH Intact Total (09/26/2024 11:40 AM EDT) [facility] PTH Intact Total 152(H) 9 - 77 pg/mL 09/26/2024 6:02 PM EDT [facility] Blood Venous blood specimen / Unknown Venipuncture / Unknown 09/26/2024 11:40 AM EDT 09/26/2024 11:40 AM EDT Narrative [facility] - 09/26/2024 6:02 PM EDT Assay performed by immunoassay at the [facility]. Performed on [place] chemiluminescent immunoassay, tractable to the World Health Organization's first international standard for PTH from the [facility], Code 79/500. Results obtained from different test methods or kits cannot be used interchangeably. Skylar Galeana MD LAB BLOOD ORDERABLES Final R esult [facility] [address] [place] [address] * (ABNORMAL) Magnesium, Plasma (09/26/2024 11:40 AM EDT) Pathologist [facility] Magnesium, Plasma 1.6(L) 1.9 - 2.4 mg/dL 09/26/2024 3:29 PM EDT [facility] Blood Venous blood specimen / Unknown Venipuncture / Unknown 09/26/2024 11:40 AM EDT 09/26/2024 11:40 AM EDT us Skylar Galeana MD LAB BLOOD ORDERABLES Final R esult [facility] [address] [place] [address] * (ABNORMAL) Comprehensive Metabolic Panel, Plasma (09/26/2024 11:40 AM EDT) Glucose, Plasma 86 74 - 99 mg/dL 09/26/2024 3:29 PM EDT [facility] BUN, Plasma 35(H) 8 - 23 mg/dL 09/26/2024 3:29 PM EDT [facility] Creatinine, Plasma 1.15(H) 0.60 - 1.10 mg/dL 09/26/2024 3:29 PM EDT [facility] BUN/Creatinine Ratio 30 09/26/2024 3:29 PM EDT [facility] Sodium, Plasma 138 136 - 145 mmol/L 09/26/2024 3:29 PM EDT [facility] Potassium, Plasma 4.7 3.6 - 4.9 mmol/L 09/26/2024 3:29 PM EDT [facility] Chloride, Plasma 101 97 - 107 mmol/L 09/26/2024 3:29 PM EDT [facility] CO2, Plasma 27 22 - 29 mmol/L 09/26/2024 3:29 PM EDT [facility] Anion Gap 10 6 - 16 mmol/L 09/26/2024 3:29 PM EDT [facility] Total Calcium, Plasma 10.7(H) 8.9 - 10.2 mg/dL 09/26/2024 3:29 PM EDT [facility] Total Protein 7.9 6.3 - 7.9 g/dL 09/26/2024 3:29 PM EDT [facility] Albumin, Plasma 4.4 3.5 - 5.2 g/dL 09/26/2024 3:29 PM EDT [facility] AST, Plasma 41(H) 10 - 35 U/L 09/26/2024 3:29 PM EDT [facility] ALT, Plasma 30 10 - 35 U/L 09/26/2024 3:29 PM EDT [facility] Alkaline Phosphatase, Plasma 120 46 [...] BLOOD ORDERABLES Final R esult [facility] [address] [place] [phone] * Dexa Bone Density (02/08/2024 9:11 AM EDT) Anatomical Region Laterality Modality L-spine Radiographic Keisha ging Skylar Galeana MD IMG DXA PROCEDURES Final Res ult from Last 3 Months or Most Recently Relevant to Health Maintenance Insurance MEDICARE [facility] Care Teams Surgical Instrument Mechanic Relationship Specialty Start Date End Date Pcp, [place] [address] PCP - General Family Medicine 12/27/23
--- OUTSIDE RECORDS SUMMARY | 2024-12-25 09:41 | XMS_ITS | Encounter Summary ---
Author Organization [facility] Address [address] [place] [address] Care Team Providers Care Gear Machine Operator General Name Role Phone Pcp, No Primary Care Provider Unavailabl e Reason for Visit * Reason Onset Date Comments Results 09/27/2024 Encounter Details Date Type Department Care Team (Late st Contact Info) Description 09/27/2024 Results Follow-Up [facility] [address] [place] [address] Skylar Galeana MD [address] [facility] [address] [place] [address] Results Social History Tobacco Use [...] VM. Sent MyChart 09.27.2024 Skylar Galeana MD [employer] of Endocrinology, Diabetes and Metabolism [facility] documented in this encounter Plan of Treatment Upcoming Encounters Date Type Department Care Team (Late st Contact Info) Description 04/01/2025 10:20 AM EDT Office Visit [facility] [facility] [address], [address] [place] [address] Skylar Galeana MD [address] [facility] [address] [place] [address] documented as of this encounter Visit Diagnoses Not on filedocumented in this encounter Additional Health Concerns Assessment Noted Time A fall risk assessment has been complete d for the patient 09/26/2024 10:45 AM EDT A Body Mass Index follow-up plan has been documented for the patient 09/26/2024 11:25 AM EDT documented as of this encounter Care Teams Gear Machine Operator General Relationship Specialty Start Date End Date Pcp, [place] [address] PCP - General Family Medicine 12/27/23 documented as of this encounter
--- OUTSIDE RECORDS SUMMARY | 2024-12-25 09:41 | XMS_ITS | Data Portability ---
Author Organization [facility] Sanchez [place] CLOSED Address [address] [facility] [facility] [facility] [address] [place] [address] Care Team Providers Care Ed Teacher Name Role Phone NATHAN GARDNER Job Coach NILTON LUKE Carbon Paper Machine Operator SAMY STAFFORD Primary Care Provider Assessment No assessment recorded. [...] By Organization Details Last Modified Time 10/04/2022 [id number] 1. T4, T3, CA, Ionized CA, PTH, TSH and thyroid antibodies obtained in office today. 2. Tinnitus management discussed with patient. Such as using ear protection to prevent further hearing loss, utilizing white noise at night when sleeping etc. DISCONTINUE TAKING MECLIZINE 3. f/u 1 y gosetinsky Not available 10/04/2022 15:10:42 12/15/2023 [id number] 1. Referred to Endocrinology & Endocrine Surgeon [...] 10.4 mg/dL 8.6-10 .2 high Not Available [facility] [address] [place] [address], [phone], 10/04/2022 18:53:13 10/05/19 23 10/04/2022 T4 (THYR OXINE ) T4 (thyroxine) 5.95 ug/dL 4.50-1 1.70 normal Not Available [facility] [address] [place] [address], [address], 10/04/2022 19:05:19 10/05/19 23 10/04/2022 TSH TSH 49.900 uIU/m L 0.270- 4.200 high Not Available [facility] [address] [place] [address], [phone], 10/04/2022 19:05:20 10/05/19 23 10/04/2022 T3, TOTAL T3, total 77 NG/dL 80-200 low Not Available [facility] [address] [place] [address], [phone], 10/04/2022 19:05:22 10/05/1910/04/2022 PTH, INTAC T WITH [...] ===== ===== ===== ===== ==== Not Available [facility] [address] [place], [address], 10/04/2022 19:22:51 10/05/19 23 10/04/2022 PTH, INTAC T WITH CA calcium 9.7 mg/dL 8.6-10 .2 normal Not Available [facility] [address] [place], [address], 10/04/2022 19:22:51 10/05/19 23 10/05/2022 THYRO GLOBU MARISA AB thyroglobuli n Ab 240 IU/mL < or = 1 high TEST PERFO RMED AT: [facility] [address] [place] [address] [place] S Not Available [facility] [address] [place], [address], 10/05/2022 13:22:03 10/05/19 23 10/06/2022 IONIZ ED CALCI UM ionized calcium 5.2 mg/dL 4.7-5. 5 normal TEST PERFO RMED AT: [facility] [address] [place] [address] [place] S Not Available [facility] [address] [place], [address], 10/06/2022 18:31:56 10/21/19 23 10/13/2022 CT, neck, soft tissu e, w/wo contr ast [place] [address] [facility] [address] Patien t Name: TANNA Weiner t : 946 Patien t Orderi ng Provid er: JAYLON CHAN [...] 320 (1 x 100 mL bottle of [facility] [address] 1323-1 1). None was wasted and discar [...] Codie Mas MD on 023 5:26 PM [email or web address] [facility] [address] [place], [address], 10/22/2022 16:07:58 12/20/19 24 11/22/2023 US, thyro id No observ ation record ed. BARCODE Not Available 2023 14:38:42 Result Notes Documentation Provider Name and Address Organization Details Recorded Time Ct, Neck, Soft Tissue, W/wo Contrast : [address] [place] [address] Patient Name: TANNA NÚÑEZ Patient : 1945 [...] 320 (1 x 100 mL bottle of [facility] [address]-21). None was wasted and discarded. 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 2015 From Automated Load;Prov ider: Samy Parra;Stat us: Active Not Available [facility] 07:04:16 Bilateral age-relat ed nuclear cataracts 07411768019 9100 Active 2015 From Automated Load;Prov ider: Samy Parra;Stat us: Active Not Available [facility] 7 07:04:16 Excess skin of eyelid 097256561 Active 2015 From Automated Load;Prov ider: Samy Parra;Stat us: Active Not Available [facility] 7 07:12:43 Hyperpara thyroidis m 60115316 Active 2021 DEAN DICKINSON MD [address] [place] [address], [address] , [place] [facility] 2 13:15:11 Emmanuel thyroidit is 55657167 Active 2021 DEAN DICKINSON MD [address] [place], [address] , [facility] 13:15:29 Problem Notes None recorded. Procedures Surgical History Date Name Laterality Status Provider Name and Address Organization Details Recorded Time 12/17/19 22 Ears/Nose/Throat Surgery completed Florecita Linn [facility] 12/31/2021 15:22:36 04/13/20 18 excision of basal cell carcinoma completed [facility] 04/24/2018 12:31:21 03/20/20 18 Biopsy Eyelid(s) completed SAMY PARRA MD [address] [place], [address], [facility] 03/20/2018 13:39:55 06/09/20 16 Blepharoplasty completed [facility] 06/17/2016 09:23:23 Appendectomy completed [facility] 06/17/2016 09:22:43 Imaging Results None recorded. Procedure [...] Updated DateTime 08/09/2022 149.86 cm Lakia Allen [facility] 14:10:42 Date Recorded Body height Provider Name an d Address Organization Details Last Updated DateTime 09/07/2023 149.86 cm Fabiola [facility] 09/07/2023 14:01:56 Date Recorded Body height Provider Name an d Address Organization Details Last Updated DateTime 09/10/2024 149.86 cm Dean Taylor [facility] 09/10/2024 10:32:35 Date Recorded Body height Body mass index (BMI) Body weight Body temperature Heart rate Systolic blood pressure Diastolic blood pressure Provider Name and Address Organization Details Last Updated DateTime 149.86 cm 33.8 kg/m2 98449.7 3 g 97.2 [degF] 54 /min 138 mm[Hg] 78 mm[Hg] Cookie Amanda [facility] 3 08:58:17 Date Recorded Body height Body mass index (BMI) Body weight Body temperature Heart rate Systolic blood pressure Diastolic blood pressure Provider Name and Address Organization Details Last Updated DateTime 4 149.86 cm 32.9 kg/m2 71886.2 6 g 97.2 [degF] 64 /min 190 mm[Hg] 99 mm[Hg] Rhonda Abdi [facility] 4 09:32:16 Social History Question Answer Notes LastModified by Organizat ion Details LastModified Time Tobacco Smoking Status Former Smoker Magdalena Rodriguezrachel robert [facility] 06/17/2016 09:22:25 What Was The Date Of Your Most Recent Tobacco Screening? 11/13/2018 Information not available 08/21/2019 Has Tobacco Cessation Counseling Been Provided? No Information not available 10/05/2021 Have You Recently Traveled Abroad? No Information not available 10/05/2021 Sex: Unknown Functional Status Question Answer Note LastModified by Organizat ion Details LastModified Time Do you use any [...] Diabetic Eye Disease N Eye Trauma N Age-related Macular Degeneration N Double Vision N Ocular trauma N RD/retinal tear N Cataract Y Glaucoma N Lazy Eye N Glasses/Contacts Y Gynecological HistoryNo gynecological history recorded. Obstetrics History GPAL:G 0 P 0 0 0 0 Past Encounters Encounter ID Performer Location Encounter Start Date Encounter Closed Date Diagnosis/Indication Diagnosis SNOMED-CT Code Diagnosis ICD10 Code Diagnosis Note [id number] MD TONY BARRAZA [place] [address] [place] [address] 06/17/2016 09:09:29 06/17/2016 10:47:30 [id number] MD TONY BARRAZA [address] [place] [address] 07/02/2016 11:14:06 07/02/2016 12:06:16 Postoperative visit 568489247 Z09 [id number] MD TONY BARRAZA [address] [place] [address] 08/31/2016 10:38:41 08/31/2016 16:40:36 Postoperative visit 839720584 Z09 [id number] MD TONY BARRAZA [address] [place] [address] 03/20/2018 09:13:25 03/20/2018 13:47:08 Lesion of eyelid 447686085 H02.89 lower lid Combined f orm of senile cataract 27320082 H25.819 bilatweral Hypermetropia 90521549 H 52.03 Presbyopia 84002403 H52. 4 [id number] SAMY PARRA MD SURGERY SCHEDULE [address] [place] [address] 04/13/2018 07:01:44 04/13/2018 07:05:58 [id number] MD TONY BARRAZA [address] [place] [address] 04/24/2018 10:35:49 04/25/2018 10:37:33 Postoperative visit 466181970 Z09 [id number] MD TONY BARRAZA [place] [address] [place] [address] 05/23/2018 12:42:05 05/23/2018 17:07:15 Postoperative visit 170435203 Z09 [id number] MD TONY BARRAZA [address] [place] [address] 11/13/2018 10:32:39 11/14/2018 10:11:05 History of malignant neoplasm of skin 395614898 Z85.828 left lower lid [id number] SAMY PARRA [facility] [address] [place],[address] [place] [address] 05/28/2019 09:21:49 05/28/2019 12:46:55 Combined form of senile cataract 42537196 H25.819 bilatweral Hypermetropia 52459160 H 52.03 Presbyopia 57025686 H52. 4 [id number] SAMY PARRA MD OPHTHALMO [place] [address] [place] [place] [address] 06/02/2020 08:51:27 06/02/2020 13:16:23 Combined form of senile cataract 84328281 H25.819 bilatweral Bilateral hyperopia of eyes 0447035430 [address]646 H52.03 History of malignant neoplasm of skin 621961391 Z85.828 LLL [id number] NATHAN GARDNER MD OPHTHALMO [address] [place],[address] [place], [place] [address] 06/08/2021 08:56:40 06/08/2021 16:35:58 Basal cell carcinoma of lower eyelid 541198883 C44.111 s/p removal - call for changes/[facility] Incipient senile cataract 683565173 H25.832 [id number] MD [facility]IN [facility] [address] [place] [address] 10/05/2021 13:17:26 10/12/2021 09:48:37 Hyperparathyroidism 80977340 E21.3 [id number] MD DELVIN MARQUIS [facility] [address] [place] [address] 11/02/2021 09:38:20 11/02/2021 11:46:52 Parathyroid adenoma 323194490 D35.1 - Parathyroi d CT 10/19/21 = [id number] of the right tracheoeso phageal groove, characteri stic of a right inferior lobe parathyroi d adenoma; thyroid U/S was essentiall y clear . 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 Observatio n versus injection discussed [id number] MD DELVIN MARQUIS [facility] [address] [place] [address] 02/01/2022 09:21:30 02/01/2022 10:27:04 Emmanuel thyroiditis 19290690 E06.3 Via blood test and biopsy of thyroid nodule; On Levothyrox ine Primary hyperparathyroidism 95993290 E21.0 Status post right superior parathyroi dectomy 12/16/2021 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 Observatio n versus injection discussed; Voice is improving and she wishes to defer injection [id number] MD DELVIN MARQUIS [facility] [address] [place] [address] 05/10/2022 08:42:45 05/10/2022 10:02:22 Hyperthyroidism 77369103 E05.90 [id number] MD DELVIN MARQUIS [facility] [address] [place] [address] 06/07/2022 08:58:07 06/07/2022 13:34:15 Hyperthyroidism 85951086 E05.90 Resolved Hyperparathyroidism 6699 9008 E21.3 Resolved Autoimmune disease 27842 009 M35.9 [id number] NATHAN GARDNER MD OPHTHALMO [place] [address] [address] 08/09/2022 13:01:02 08/09/2022 15:32:54 Basal cell carcinoma of lower eyelid 707811965 C44.111 previouss/ p removal - call for changes/pr oblemsrech german 1 year Incipient senile cataract 209842820 H25.099 progressin g, OS>ODdiscu ssed option of ce - pt would like trial mr todayreche ck 1 year [id number] DEAN DICKINSON MD [facility] [address] [place] [address] 10/04/2022 08:46:41 10/04/2022 13:40:04 Emmanuel thyroiditis 28025519 E06.3 - Via blood test and biopsy of thyroid nodule; On Levothyrox ine Bilateral tinnitus 02229 67790 102 H93.13 Recommend audiogram next visit History of primary hyperparathyroidism 9254359707 9106 Z86.39 Status post thyroidect adolfo [id number] NATHAN GARDNER MD OPHTHALMO [facility] [address] [address] 09/07/2023 13:59:45 09/07/2023 15:10:49 Incipient senile cataract 746030935 H25.099 stablecont inue mr Basal cell carcinoma of lower eyelid 302962500 C44.111 previouss/ p removal - call for changes/pr oblemsrech german 1 year [id number] MD DELVIN MARQUIS [facility] [address] [place] [address] 12/15/2023 09:23:19 12/15/2023 13:43:19 Hypothyroidism 78005552 E03.9 History of Emmanuel' s in past Primary hyperparathyroidism 70243768 E21.0 Status post right superior parathyroi dectomy 12/16/2021 [id number] NATHAN GARDNER MD OPHTHALMO [facility] [address] [place] [address] 09/10/2024 09:40:46 09/10/2024 11:50:02 Incipient senile cataract 568441166 H25.099 stable new mr today Basal cell carcinoma of lower eyelid 180115835 C44.111 stables/p removal - call for changes/pr oblemsrec german 1 year Health Concerns Section Related Observation LastModified by Organization Detai ls LastModified Time None Recorded Concern Status LastModified by Organization Details LastModified Time None Recorded Advance Directives Directive None Recorded Payers Insurance Date Sequence Insurance Name Policy Number Policy Walsh Covered Member ID Walsh Member ID Guarantor Name 11/21/2024 2 [employer] INSURANCE Outside.in OF [facility] Tanna L Small [id number] Tanna L Small 11/21/2024 2 [employer] (MEDICARE SUPPLEMENT) Tanna L Small Tanna L Small 11/21/2024 2 [employer] (MEDICARE SUPPLEMENT) Tanna L Small [id number] Tanna L Small 11/21/2024 1 [place]IC[place] Tanna L Small [id number] Tanna L Small 11/21/2024 2 [employer] INSUR[employer] Outside.in (MEDICARE SUPPLEMENT) Tanna L Small [id number] Tanna L Small Notes Date Note Type Note Provider Name and Address Organization Details Recorded Time 08/09/2022 text/html p/t reports good health p/t reports no changes in eye health p/t reports jul.08 with a visit to urgent care center for cough p/t reports after taking medication prescribed at urgent care center, OU red and irritated NATHAN GARDNER MD [address] [place] [address], [address], [facility] 08/09/2022 15:19:53 10/04/2022 text/html Tanna visits us [...] treat tinnitus, which has not helped [place], [address], [facility] 10/04/2022 15:10:57 12/15/2023 text/html Tanna visits us [...] is status post right superior parathyroidectomy 2021[place], [address], [facility] 12/15/2023 18:18:50 OBGyn Episode No OBEpisode recorded.
--- NOTE | 2024-12-25 10:00 | MM_ITS ---
PROCEDURE INFORMATION: Exam: MG Bilateral Screening 3D Mammography Exam date and time: 12/25/2024 9:51 AM Age: 79 years old Clinical indication: Screening examination TECHNIQUE: Imaging protocol: Bilateral Screening tomosynthesis and 2D mammography including computer-aided detection (CAD) when performed. COMPARISON: MG MM DIG SCREENING MAMM BI W/CAD 08/17/2022 3:26 PM FINDINGS: MAMMOGRAPHY: Breast composition: The breasts are almost entirely fatty. Mass: None. Architectural distortion: None. Calcifications: No suspicious calcifications. Asymmetric density: None. Skin thickening: None. Axillary adenopathy: None. IMPRESSION: No mammographic evidence of malignancy. Annual screening is recommended unless otherwise clinically indicated. ASSESSMENT: BI-RADS Category 1: Negative.
== END 2024-12-25 23:59 | disposition home or self-care (01) ==
LOC: RAD 09:39
PROVIDERS: PCP Family Medicine; Visit Provider Family Medicine
DX: Z12.31 Encounter for screening mammogram for malignant neoplasm of breast (principal); R92.313 Mammographic fatty tissue density, bilateral breasts
CPT/HCPCS: 77063; 77067

== ENCOUNTER 2024-12-26 08:49 | Outpatient (CLI) | payer MEDICARE, SELFPAY ==
[2024-12-26 19:12] LABS: Alanine Aminotransferase 20 U/L (12-78); Albumin Level 4.3 g/dl (3.5-5.0); Albumin/Globulin Ratio 1.4 (1.1-1.8); Alkaline Phosphatase 97 U/L (38-126); Anion Gap 14.8 mEq/L (5-15); Aspartate Amino Transferase 34 U/L (14-36); Bilirubin,Total 0.7 mg/dl (0.2-1.3); Blood Urea Nitrogen 42 mg/dl (7-17); Calcium 11.2 mg/dl (8.4-10.2); Carbon Dioxide 31 mmol/L (22.0-30.0); Chloride 96 mmol/L (98-107); Estimated Glomerular Filt Rate 36 ml/min (>60); GFR (African American) 44 ML/MIN (>60); Globulin 3.1 g/dL (1.3-3.2); Glucose 73 mg/dl (74-100); Magnesium 1.7 mg/dl (1.6-2.3); Potassium 4.8 mmoL/L (3.5-5.1); Sodium 137 mmol/L (136-145); Total Protein,Serum 7.4 g/dl (6.3-8.2)
--- OUTSIDE RECORDS SUMMARY | 2024-12-27 12:34 | XMS_ITS | Data Portability ---
Author Organization [facility] BRADY Sanchez [place] [facility] Address [address] [facility] [address] [place] [address] Care Team Providers Care Fuel Yard Operator Name Role Phone NATHAN GARDNER Guest Services Director NILTON LUKE Pier Worker SAMY STAFFORD Primary Care Provider Assessment No [...] By Organization Details Last Modified Time 10/04/2022 [id number] 1. T4, T3, CA, Ionized CA, PTH, TSH and thyroid antibodies obtained in office today. 2. Tinnitus management discussed with patient. Such as using ear protection to prevent further hearing loss, utilizing white noise at night when sleeping etc. DISCONTINUE TAKING MECLIZINE 3. f/u 1 y gosetinsky Not available 10/04/2022 15:10:42 12/15/2023 [id number] 1. Referred to Endocrinology & Endocrine Surgeon [...] 10.4 mg/dL 8.6-10 .2 high Not Available [facility] [address] [place] [address], [phone], 10/04/2022 18:53:13 10/05/19 23 10/04/2022 T4 (THYR OXINE ) T4 (thyroxine) 5.95 ug/dL 4.50-1 1.70 normal Not Available [facility] [address] [place] [address], [phone], 10/04/2022 19:05:19 10/05/19 23 10/04/2022 TSH TSH 49.900 uIU/m L 0.270- 4.200 high Not Available [facility] [address] [place] [address], [phone], 10/04/2022 19:05:20 10/05/19 23 10/04/2022 T3, TOTAL T3, total 77 NG/dL 80-200 low Not Available [facility] [address] [place] [address], [phone], 10/04/2022 19:05:22 10/05/1910/04/2022 PTH, INTAC T WITH [...] ===== ===== ===== ===== ==== Not Available [facility] [address] [place], [address], 10/04/2022 19:22:51 10/05/19 23 10/04/2022 PTH, INTAC T WITH CA calcium 9.7 mg/dL 8.6-10 .2 normal Not Available [facility] [address] [place], [address], 10/04/2022 19:22:51 10/05/19 23 10/05/2022 THYRO GLOBU MARISA AB thyroglobuli n Ab 240 IU/mL < or = 1 high TEST PERFO RMED AT: [facility] [address] [place] [address] ANTHO [place] V SD S Not Available [facility] [address] [place], [address], 10/05/2022 13:22:03 10/05/19 23 10/06/2022 IONIZ ED CALCI UM ionized calcium 5.2 mg/dL 4.7-5. 5 normal TEST PERFO RMED AT: [facility] [address] [place] [address] ANTHO [place] V DS S Not Available [facility] [address] [place], [address], 10/06/2022 18:31:56 10/21/19 23 10/13/2022 CT, neck, soft tissu e, w/wo contr ast [place] [address] [facility] [place] [address] Patien t Name: TANNA Weiner t : 947 Patien t Orderi ng Provid er: JAYLON CHNA STARR EXAM DATE: 2022 EXAM: CT PARATH [...] 320 (1 x 100 mL bottle of [facility] [id number]- 1323-1 1). None was wasted and discar [...] Mas MD Electr onical ly Signed By: Coide Mas MD on 023 5:26 PM [email or web address] [facility] [address] [place], [address], 10/22/2022 16:07:58 12/20/19 24 11/22/2023 US, thyro id No observ ation record ed. BARCODE Not Available 2023 14:38:42 Result Notes Documentation Provider Name and Address Organization Details Recorded Time Ct, Neck, Soft Tissue, W/wo Contrast : [address] [place] [address] Patient Name: TANNA NÚÑEZ Patient : 1945 [...] 320 (1 x 100 mL bottle of [facility] [id number]). None was wasted and discarded. 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 2015 From Automated Load;Prov ider: Samy Parra;Stat us: Active Not Available [facility] 7 07:04:16 Bilateral age-relat ed nuclear cataracts 12098106816 9100 Active 2015 From Automated Load;Prov ider: Samy Parra;Stat us: Active Not Available [facility] 7 07:04:16 Excess skin of eyelid 547710981 Active 2015 From Automated Load;Prov ider: Samy Parra;Stat us: Active Not Available [facility] 7 07:12:43 Hyperpara thyroidis m 24499588 Active 2021 DEAN DICKINSON MD [address] [place] [address], [address] , [place] [facility] 2 13:15:11 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 13:15:29 Problem Notes None recorded. Procedures Surgical History Date Name Laterality Status Provider Name and Address Organization Details Recorded Time 12/17/19 22 Ears/Nose/Throat Surgery completed Florecita Linn [facility] 12/31/2021 15:22:36 04/13/20 18 excision of basal cell carcinoma completed [facility] 04/24/2018 12:31:21 03/20/20 18 Biopsy Eyelid(s) completed SAMY PARRA MD [address] [place], [address], [facility] 03/20/2018 13:39:55 06/09/20 16 Blepharoplasty completed [facility] 06/17/2016 09:23:23 Appendectomy completed [facility] 06/17/2016 09:22:43 Imaging Results None recorded. Procedure [...] Updated DateTime 08/09/2022 149.86 cm Lakia Allen [facility] 14:10:42 Date Recorded Body height Provider Name an d Address Organization Details Last Updated DateTime 09/07/2023 149.86 cm Fabiola [facility] 09/07/2023 14:01:56 Date Recorded Body height Provider Name an d Address Organization Details Last Updated DateTime 09/10/2024 149.86 cm Dean Taylor [facility] 09/10/2024 10:32:35 Date Recorded Body height Body mass index (BMI) Body weight Body temperature Heart rate Systolic blood pressure Diastolic blood pressure Provider Name and Address Organization Details Last Updated DateTime 149.86 cm 33.8 kg/m2 22868.7 3 g 97.2 [degF] 54 /min 138 mm[Hg] 78 mm[Hg] Cookie Amanda [facility] 3 08:58:17 Date Recorded Body height Body mass index (BMI) Body weight Body temperature Heart rate Systolic blood pressure Diastolic blood pressure Provider Name and Address Organization Details Last Updated DateTime 4 149.86 cm 32.9 kg/m2 69268.2 6 g 97.2 [degF] 64 /min 190 mm[Hg] 99 mm[Hg] Rhonda Abdi [facility] 4 09:32:16 Social History Question Answer Notes LastModified by Organizat ion Details LastModified Time Tobacco Smoking Status Former Smoker Magdalena Rodriguezrachel robert [facility] 06/17/2016 09:22:25 What Was The Date Of [...] N Ocular trauma N RD/retinal tear N Lazy Eye N Glaucoma N Cataract Y Glasses/Contacts Y Gynecological HistoryNo gynecological history recorded. Obstetrics History GPAL:G 0 P 0 0 0 0 Past Encounters Encounter ID Performer Location Encounter Start Date Encounter Closed Date Diagnosis/Indication Diagnosis SNOMED-CT Code Diagnosis ICD10 Code Diagnosis Note [id number] MD TONY [place]RA[place] [address] [place] [address] 06/17/2016 09:09:29 06/17/2016 10:47:30 [id number] MD TONY BARRAZA [address] [place] [address] 07/02/2016 11:14:06 07/02/2016 12:06:16 Postoperative visit 113991916 Z09 [id number] MD TONY BARRAZA [address] [place] [address] 08/31/2016 10:38:41 08/31/2016 16:40:36 Postoperative visit 145995126 Z09 [id number] MD TONY BARRAZA [address] [place] [address] 03/20/2018 09:13:25 03/20/2018 13:47:08 Lesion of eyelid 125882450 H02.89 lower lid Combined f orm of senile cataract 84689934 H25.819 bilatweral Hypermetropia 41580834 H 52.03 Presbyopia 14403283 H52. 4 [id number] SAMY PARRA MD SURGERY SCHEDULE [address] [place] [address] 04/13/2018 07:01:44 04/13/2018 07:05:58 [id number] MD TONY BARRAZA [address] [place] [address] 04/24/2018 10:35:49 04/25/2018 10:37:33 Postoperative visit 516275862 Z09 [id number] MD TONY BARRAZA [place] [address] [place] [address] 05/23/2018 12:42:05 05/23/2018 17:07:15 Postoperative visit 605293267 Z09 [id number] MD TONY BARRAZA [address] [place] [address] 11/13/2018 10:32:39 11/14/2018 10:11:05 History of malignant neoplasm of skin 582548878 Z85.828 left lower lid [id number] SAMY PARRA [facility] [address] [place],[address] [place] [address] 05/28/2019 09:21:49 05/28/2019 12:46:55 Combined form of senile cataract 86978656 H25.819 bilatweral Hypermetropia 62396033 H 52.03 Presbyopia 90041347 H52. 4 [id number] SAMY PARRA MD OPHTHALMO [place] [address] [place],[address] [place] [address] 06/02/2020 08:51:27 06/02/2020 13:16:23 Combined form of senile cataract 36535220 H25.819 bilatweral Bilateral hyperopia of eyes 8612286773 72662 H52.03 History of malignant neoplasm of skin 587624809 Z85.828 LLL [id number] NATHAN GARDNER MD OPHTHALMO [address] [place],[address] [place], [place] [address] 06/08/2021 08:56:40 06/08/2021 16:35:58 Basal cell carcinoma of lower eyelid 131028040 C44.111 s/p removal - call for changes/[facility] 1 year Incipient senile cataract 849711373 H25.878 [id number] MD DELVIN MARQUIS [facility] Kristin [facility] [address] [place] [address] 10/05/2021 13:17:26 10/12/2021 09:48:37 Hyperparathyroidism 46554961 E21.3 [id number] MD DELVIN MARQUIS [facility] [address] [place] [address] 11/02/2021 09:38:20 11/02/2021 11:46:52 Parathyroid adenoma 885711032 D35.1 - Parathyroi d CT 10/19/21 = [id number] of the right tracheoeso phageal groove, characteri stic of a right inferior lobe parathyroi d adenoma; thyroid U/S was essentiall y clear . 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 Observatio n versus injection discussed [id number] MD DELVIN MARQUIS [facility] [address] [place] [address] 02/01/2022 09:21:30 02/01/2022 10:27:04 Emmanuel thyroiditis 00442075 E06.3 Via blood test and biopsy of thyroid nodule; On Levothyrox ine Primary hyperparathyroidism 63032333 E21.0 Status post right superior parathyroi dectomy 12/16/2021 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 Observatio n versus injection discussed; Voice is improving and she wishes to defer injection [id number] MD DELVIN MARQUIS [facility] [address] [place] [address] 05/10/2022 08:42:45 05/10/2022 10:02:22 Hyperthyroidism 99219163 E05.90 [id number] MD DELVIN MARQUIS [facility] [address] [place] [address] 06/07/2022 08:58:07 06/07/2022 13:34:15 Hyperthyroidism 71465793 E05.90 Resolved Hyperparathyroidism 6699 9008 E21.3 Resolved 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 [id number] NATHAN GARDNER MD OPHTHALMO [place] [address] [place] [address] 08/09/2022 13:01:02 08/09/2022 15:32:54 Basal cell carcinoma of lower eyelid 681136553 C44.111 previouss/ p removal - call for changes/pr oblemsrech german 1 year Incipient senile cataract 713608402 H25.099 progressin g, OS>ODdiscu ssed option of ce - pt would like trial mr todayreche ck 1 year [id number] DEAN DICKINSON MD [facility] [address] [place] [address] 10/04/2022 08:46:41 10/04/2022 13:40:04 Emmanuel thyroiditis 45706253 E06.3 - Via blood test and biopsy of thyroid nodule; On Levothyrox ine Bilateral tinnitus 84146 15056 102 H93.13 Recommend audiogram next visit History of primary hyperparathyroidism 5617967800 9106 Z86.39 Status post thyroidect adolfo [id number] NATHAN GARDNER MD OPHTHALMO [place] [address] [place] [address] 09/07/2023 13:59:45 09/07/2023 15:10:49 Incipient senile cataract 746648607 H25.099 stablecont inue mr Basal cell carcinoma of lower eyelid 490253196 C44.111 previouss/ p removal - call for changes/pr oblemsrech german 1 year [id number] MD DELVIN MARQUIS [facility] [address] [place] [address] 12/15/2023 09:23:19 12/15/2023 13:43:19 Hypothyroidism 40009162 E03.9 History of Emmanuel' s in past Primary hyperparathyroidism 19427818 E21.0 Status post right superior parathyroi dectomy 12/16/2021 [id number] NATHAN GARDNER MD [facility]PHTH[facility]MO [facility] [address] [place] [address] 09/10/2024 09:40:46 09/10/2024 11:50:02 Incipient senile cataract 954358560 H25.099 stable new mr today Basal cell carcinoma of lower eyelid 471062064 C44.111 stables/p removal - call for changes/pr oblemsrec german 1 year Health Concerns Section Related Observation LastModified by Organization Detai ls LastModified Time None Recorded Concern Status LastModified by Organization Details LastModified Time None Recorded Advance Directives Directive None Recorded Payers Insurance Date Sequence Insurance Name Policy Number Policy Walsh Covered Member ID Walsh Member ID Guarantor Name 11/21/2024 2 [employer] INSURANCE [employer] OF [facility] Tanna L Small [id number] Tanna L Small 11/21/2024 2 [employer] (MEDICARE SUPPLEMENT) Tanna L Small Tanna L Small 11/21/2024 2 [employer] (MEDICARE SUPPLEMENT) Tanna L Small [id number] Tanna L Small 11/21/2024 1 [place]ICARE[place] Tanna L Small [id number] Tanna L Small 11/21/2024 2 [employer] INSURANCE [employer] [employer] (MEDICARE SUPPLEMENT) Tanna L Small [id number] Tanna L Small Notes Date Note Type Note Provider Name and Address Organization Details Recorded Time 08/09/2022 text/html p/t reports good health p/t reports no changes in eye health p/t reports jul.08 with a visit to urgent care center for cough p/t reports after taking medication prescribed at urgent care center, OU red and irritated NATHAN GARDNER MD [address] [place] [address], [address], [facility] 08/09/2022 15:19:53 10/04/2022 text/html Tanna [...] which has not helped symptoms[place], [address], [facility] 10/04/2022 15:10:57 12/15/2023 text/html Tanna [...] post right superior parathyroidectomy 2021. [place], [address], [facility] 12/15/2023 18:18:50 OBGyn Episode No OBEpisode recorded.
--- OUTSIDE RECORDS SUMMARY | 2024-12-27 12:34 | XMS_ITS | Encounter Summary ---
Author Organization [facility] Address [address] [place] [address] Care Team Providers Care Reel Worker Name Role Phone Pcp, No Primary Care Provider Unavailabl e Reason for Visit * Reason Onset Date Comments Results 09/27/2024 Encounter Details Date Type Department Care Team (Late st Contact Info) Description 09/27/2024 Results Follow-Up [facility] Endocrinology [address] [place] [address] Skylar Galeana MD [address] [facility] [address] [place] [address] Results Social History Tobacco Use [...] VM. Sent MyChart 09.27.2024 Skylar Galeana MD Senior Copywriter of Endocrinology, Diabetes and Metabolism [facility] documented in this encounter Plan of Treatment Upcoming Encounters Date Type Department Care Team (Late st Contact Info) Description 04/01/2025 10:20 AM EDT Office Visit [facility] [address], [address] [place] [address] Skylar Galeana MD [address] [facility] [address] [place] [address] documented as of this encounter Visit Diagnoses Not on filedocumented in this encounter Additional Health Concerns Assessment Noted Time A fall risk assessment has been complete d for the patient 09/26/2024 10:45 AM EDT A Body Mass Index follow-up plan has been documented for the patient 09/26/2024 11:25 AM EDT documented as of this encounter Care Teams Reel Worker Relationship Specialty Start Date End Date Pcp, [place] [address] PCP - General Family Medicine 12/27/23 documented as of this encounter
--- OUTSIDE RECORDS SUMMARY | 2024-12-27 12:34 | XMS_ITS | Clinical Summary ---
Author Organization Healthcare Address [address] [place] [address] Care Team Providers Care Benefit Specialist Name Role Phone Pcp, No Primary Care [...] Follow-Up [facility] [address] [place] [id number] Skylar Galeana MD Results 09/26/2024 10:20 AM EDT Office Visit [facility] [address], [address] [place] [address] Skylar Galeana MD Hypothyroidism due [...] Description 04/01/2025 10:20 AM EDT Office Visit [facility] [address], [address] [place] [address] Skylar Galeana MD [address] [address] Health Maintenance Due Date Last Done Comments [facility]-Hepatitis C Screening 1945 [facility]-Medicare Annual Wellness (AWV) 1945 [facility]-Infant/Child/Adol SDOH Screenings 1945 [facility]- SDOH Screenings 1964 [facility]-Adult SDOH Screenings 1964 [facility]-Pneumococcal Vaccine: 50 + Years (1 of 1 - PCV) 1996 [facility]-Zoster Vaccines (1 of 2) 1996 [facility]-DTaP,Tdap,and Td Vaccine s (1 - Tdap) 09/05/1996 09/04/1996 [id number] Vaccine (3 - Moderna risk series) 10/08/2020 [...] Routine 09/26/2024 11:40 AM EDT Primary hyperparathyroidism (CMS/[facility]) Hypomagnesemia PHOSPHORUS, PLASMA Routine 09/26/2024 11:40 AM EDT Primary hyperparathyroidism (CMS/HCC) PTH INTACT TOTAL Routine 09/26/2024 11:40 AM EDT Primary hyperparathyroidism ([facility]) DEXA BONE DENSITY Routine 02/08/2024 9:1 1 AM EDT from Last 3 Months or Most Recently Relevant to Health Maintenance Results * (ABNORMAL) Ionized calcium, serum (09/26/2024 11:40 AM EDT) Ionized Calcium, Serum 5.8(H) 4.6 - 5.3 mg/dL LAB HEMATOLOGY METHOD 09/26/2024 2:25 PM EDT [facility] Blood Venous blood specimen / Unknown Venipuncture / Unknown 09/26/2024 11:40 AM EDT 09/26/2024 11:40 AM EDT us Skylar Galeana MD LAB BLOOD ORDERABLES Final R esult [facility] [address] [place] [id number] * Vitamin D 25 Hydroxy (09/26/2024 11:40 AM EDT) Vitamin D 25 Hydroxy 49.0 20.0 - 80.0 ng/mL 09/26/2024 4:47 PM EDT [facility] Blood Venous blood specimen / Unknown Venipuncture / Unknown 09/26/2024 11:40 AM EDT 09/26/2024 11:40 AM EDT Narrative [facility] - 09/26/2024 4:47 PM EDT Testing performed on [employer] Vac[employer] Drier Tender, standardized against NIST SRM [id number]. When testing [...] ORDERABLES Final R esult Performing Organization Address City/[facility]/[place] [address] * Thyroid Stimulating Hormone, Plasma (09/26/2024 11:40 AM EDT) Thyroid Stimulating Hormone, Plasma 3.11 0.40 - 4.20 uIU/mL 09/26/2024 3:29 PM EDT [facility] Blood Venous blood specimen / Unknown Venipuncture / Unknown 09/26/2024 11:40 AM EDT 09/26/2024 11:40 AM EDT Skylar Galeana MD LAB BLOOD ORDERABLES Final R esult Performing Organization Address City/[facility]/ZIP Co de Phone Number [facility] [address] [place] [address] * Free T4, Plasma (09/26/2024 11:40 AM EDT) Free T4, Plasma 1.5 0.8 - 1.7 ng/dL 09/26/2024 3:29 PM EDT [facility] Blood Venous blood specimen / Unknown Venipuncture / Unknown 09/26/2024 11:40 AM EDT 09/26/2024 11:40 AM EDT Skylar Galeana MD LAB BLOOD ORDERABLES Final R esult Performing Organization Address City/[facility]/ZIP Co de Phone Number [facility] [address] [place] [address] * Phosphorus, Plasma (09/26/2024 11:40 AM EDT) Phosphorus, Plasma 2.7 2.5 - 4.5 mg/dL 09/26/2024 3:29 PM EDT [facility] Blood Venous blood specimen / Unknown Venipuncture / Unknown 09/26/2024 11:40 AM EDT 09/26/2024 11:40 AM EDT Skylar Galeana MD LAB BLOOD ORDERABLES Final R esult Performing Organization Address City/[facility]/ZIP Co de Phone Number [facility] [address] [phone] * (ABNORMAL) PTH Intact Total (09/26/2024 11:40 AM EDT) [facility] PTH Intact Total 152(H) 9 - 77 pg/mL 09/26/2024 6:02 PM EDT [facility] Blood Venous blood specimen / Unknown Venipuncture / Unknown 09/26/2024 11:40 AM EDT 09/26/2024 11:40 AM EDT Narrative [facility] - 09/26/2024 6:02 PM EDT Assay performed by immunoassay at the [facility]. Performed on [employer] Vac[employer] Drier Tender chemiluminescent immunoassay, tractable to the World Health Organization's first international standard for PTH from the [facility], Code 79/500. Results obtained from different test methods or kits cannot be used interchangeably. Skylar Galeana MD LAB BLOOD ORDERABLES Final R esult [facility] [address] [place] [address] * (ABNORMAL) Magnesium, Plasma (09/26/2024 11:40 AM EDT) Pathologist [facility] Magnesium, Plasma 1.6(L) 1.9 - 2.4 mg/dL 09/26/2024 3:29 PM EDT [facility] Blood Venous blood specimen / Unknown Venipuncture / Unknown 09/26/2024 11:40 AM EDT 09/26/2024 11:40 AM EDT us Skylar Galeana MD LAB BLOOD ORDERABLES Final R esult [facility] [address] [place] [address] * (ABNORMAL) Comprehensive Metabolic Panel, Plasma (09/26/2024 11:40 AM EDT) Glucose, Plasma 86 74 - 99 mg/dL 09/26/2024 3:29 PM EDT [facility] BUN, Plasma 35(H) 8 - 23 mg/dL 09/26/2024 3:29 PM EDT [facility] Creatinine, Plasma 1.15(H) 0.60 - 1.10 mg/dL 09/26/2024 3:29 PM EDT [facility] BUN/Creatinine Ratio 30 09/26/2024 3:29 PM EDT [facility] Sodium, Plasma 138 136 - 145 mmol/L 09/26/2024 3:29 PM EDT [facility] Potassium, Plasma 4.7 3.6 - 4.9 mmol/L 09/26/2024 3:29 PM EDT [facility] Chloride, Plasma 101 97 - 107 mmol/L 09/26/2024 3:29 PM EDT [facility] CO2, Plasma 27 22 - 29 mmol/L 09/26/2024 3:29 PM EDT [facility] Anion Gap 10 6 - 16 mmol/L 09/26/2024 3:29 PM EDT [facility] Total Calcium, Plasma 10.7(H) 8.9 - 10.2 mg/dL 09/26/2024 3:29 PM EDT [facility] Total Protein 7.9 6.3 - 7.9 g/dL 09/26/2024 3:29 PM EDT [facility] Albumin, Plasma 4.4 3.5 - 5.2 g/dL 09/26/2024 3:29 PM EDT [facility] AST, Plasma 41(H) 10 - 35 U/L 09/26/2024 3:29 PM EDT [facility] ALT, Plasma 30 10 - 35 U/L 09/26/2024 3:29 PM EDT [facility] Alkaline Phosphatase, Plasma 120 [...] BLOOD ORDERABLES Final R esult [facility] [address] [place] [id number] * Dexa Bone Density (02/08/2024 9:11 AM EDT) Anatomical Region Laterality Modality L-spine Radiographic Keisha ging Skylar Galeana MD IMG DXA PROCEDURES Final Res ult from Last 3 Months or Most Recently Relevant to Health Maintenance Insurance MEDICARE [facility] Care Teams Benefit Specialist Relationship Specialty Start Date End Date P[place], [place] [address] PCP - General Family Medicine 12/27/23
== END 2024-12-26 23:59 | disposition home or self-care (01) ==
LOC: LAB.DROPOF 12-27 12:32
PROVIDERS: PCP Family Medicine; Visit Provider Family Medicine
DX: E83.52 Hypercalcemia (principal); E83.42 Hypomagnesemia
CPT/HCPCS: 80053; 83735

== ENCOUNTER 2024-12-31 13:49 | Outpatient (CLI) | payer MEDICARE, SELFPAY ==
--- OUTSIDE RECORDS SUMMARY | 2024-12-31 13:52 | XMS_ITS | Clinical Summary ---
Author Organization Healthcare Address [address] [place] [address] Care Team Providers Care Audio Visual Manager Name Role Phone Pcp, No Primary Care [...] mouth daily. 90 tablet 1 09/27/2024 Active Immunizations Immunization Administration Dates Next Due TD [...] Description 04/01/2025 10:20 AM EDT Office Visit [facility] [address], [address] [place] [address] Skylar Galeana MD [address] [facility] [address] [place] [address] Health Maintenance Due Date Last Done Comments [facility]-Hepatitis C Screening 1946 [facility]-Medicare Annual Wellness (AWV) 1946 [facility]-Infant/Child/Adol SDOH Screenings 1945 [facility]- SDOH Screenings 1964 [facility]-Adult SDOH Screenings 1964 [facility]-Pneumococcal Vaccine: 50 + Years (1 of 1 - PCV) 1996 [facility]-Zoster Vaccines (1 of 2) 1996 [facility]-DTaP,Tdap,and Td Vaccine s (1 - Tdap) 09/05/1996 09/04/1996 [id number] Vaccine (3 - Moderna risk series) 10/08/2020 [...] Procedure Name Priority Date/Time Associated Diagnosis Comments DEXA BONE DENSITY Routine 02/08/2024 9:11 AM EDT from Last 3 Months or Most Recently Relevant to Health Maintenance Results * Dexa Bone Density (02/08/2024 9:11 AM EDT) Anatomical Region Laterality Modality L-spine Radiographic Keisha ging Skylar Galeana MD IMG DXA PROCEDURES Final Res ult from Last 3 Months or Most Recently Relevant to Health Maintenance Insurance MEDICARE [employer] Care Teams Audio Visual Manager Relationship Specialty Start Date End Date Pcp, Mayra [address] [place] [address] PCP - General Family Medicine 12/27/23
--- OUTSIDE RECORDS SUMMARY | 2024-12-31 13:52 | XMS_ITS | Data Portability ---
Author Organization [facility] BRADY Sanchez GRENOLA CLOSED Address [address] [facility] [place] [address] Care Team Providers Care Slip Dumper Name Role Phone NATHAN GARDNER Electrician Control Equipment NILTON LUKE Rice Drier Operator SAMY STAFFORD Primary Care Provider Assessment [...] By Organization Details Last Modified Time 10/04/2022 [id number] 1. T4, T3, CA, Ionized CA, PTH, TSH and thyroid antibodies obtained in office today. 2. Tinnitus management discussed with patient. Such as using ear protection to prevent further hearing loss, utilizing white noise at night when sleeping etc. DISCONTINUE TAKING MECLIZINE 3. f/u 1 y gosetinsky Not available 10/04/2022 15:10:42 12/15/2023 [id number] 1. Referred to Endocrinology & Endocrine Surgeon [...] 10.4 mg/dL 8.6-10 .2 high Not Available [facility] [address] [place] [address], [address], 10/04/2022 18:53:13 10/05/19 23 10/04/2022 T4 (THYR OXINE ) T4 (thyroxine) 5.95 ug/dL 4.50-1 1.70 normal Not Available [facility] [address] [place] [address], [address], 10/04/2022 19:05:19 10/05/19 23 10/04/2022 TSH TSH 49.900 uIU/m L 0.270- 4.200 high Not Available [facility] [address] [place] [address], [address], 10/04/2022 19:05:20 10/05/19 23 10/04/2022 T3, TOTAL T3, total 77 NG/dL 80-200 low Not Available [facility] [address] [place] [address], [address], 10/04/2022 19:05:22 10/05/1910/04/2022 PTH, INTAC T WITH [...] ===== ===== ===== ===== ==== Not Available [facility] [address] [place], [address], 10/04/2022 19:22:51 10/05/19 23 10/04/2022 PTH, INTAC T WITH CA calcium 9.7 mg/dL 8.6-10 .2 normal Not Available [facility] [address] [place], [address], 10/04/2022 19:22:51 10/05/19 23 10/05/2022 THYRO GLOBU MARISA AB thyroglobuli n Ab 240 IU/mL < or = 1 high TEST PERFO RMED AT: [facility] [address] [place] [address] ANTHO [place] V SD S Not Available [facility] [address] [place], [address], 10/05/2022 13:22:03 10/05/19 23 10/06/2022 IONIZ ED CALCI UM ionized calcium 5.2 mg/dL 4.7-5. 5 normal TEST PERFO RMED AT: [facility] [place] [address] [place] [address] ANTHO [place] V SD S Not Available [facility] [address] [place], [address], 10/06/2022 18:31:56 10/21/19 23 10/13/2022 CT, neck, soft tissu e, w/wo contr ast [place] [address] [facility] [place] [address] Patien t Name: TANNA Weiner t : [...] 320 (1 x [address] [facility] [address]- 1323-1 1). None was wasted and discar [...] Codie Mas MD on 023 5:26 PM [facility] [address] [place], [address], 10/22/2022 16:07:58 12/20/19 24 11/22/2023 US, thyro id No observ ation record ed. BARCODE Not Available 2023 14:38:42 Result Notes Documentation Provider Name and Address Organization Details Recorded Time Ct, Neck, Soft Tissue, W/wo Contrast : [address] [place] [address] Patient Name: TANNA NÚÑEZ Patient : 1945 [...] 320 (1 x [address] [facility] [address]-07). None was wasted and discarded. 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 Active 2015 From Automated Load;Prov ider: Samy Parra;Stat us: Active Not Available [facility] 7 07:04:16 Bilateral age-relat ed nuclear cataracts 67259522764 9100 Active 2015 From Automated Load;Prov ider: Samy Parra;Stat us: Active Not Available [facility] 7 07:04:16 Excess skin of eyelid 071074641 Active 2015 From Automated Load;Prov ider: Samy Parra;Stat us: Active Not Available [facility] 7 07:12:43 Hyperpara thyroidis m 31517788 Active 2021 DEAN DICKINSON MD [address] [place] [address], [address] , [place] [facility] 2 13:15:11 Emmanuel thyroidit is 60544346 Active 2021 DEAN DICKINSON MD [address] [place], [address] , [facility] 13:15:29 Problem Notes None recorded. Procedures Surgical History Date Name Laterality Status Provider Name and Address Organization Details Recorded Time 12/17/19 22 Ears/Nose/Throat Surgery completed Florecita Linn [facility] 12/31/2021 15:22:36 04/13/20 18 excision of basal cell carcinoma completed [facility] 04/24/2018 12:31:21 03/20/20 18 Biopsy Eyelid(s) completed SAMY PARRA MD [address] [place], [address], [facility] 03/20/2018 13:39:55 06/09/20 16 Blepharoplasty completed [facility] 06/17/2016 09:23:23 Appendectomy completed [facility] 06/17/2016 09:22:43 Imaging Results None recorded. [...] Updated DateTime 08/09/2022 149.86 cm Lakia Allen [facility] 14:10:42 Date Recorded Body height Provider Name an d Address Organization Details Last Updated DateTime 09/07/2023 149.86 cm Fabiola [facility] 09/07/2023 14:01:56 Date Recorded Body height Provider Name an d Address Organization Details Last Updated DateTime 09/10/2024 149.86 cm Dean Taylor [facility] 09/10/2024 10:32:35 Date Recorded Body height Body mass index (BMI) Body weight Body temperature Heart rate Systolic blood pressure Diastolic blood pressure Provider Name and Address Organization Details Last Updated DateTime 149.86 cm 33.8 kg/m2 85227.7 3 g 97.2 [degF] 54 /min 138 mm[Hg] 78 mm[Hg] Cookie Amanda [facility] 3 08:58:17 Date Recorded Body height Body mass index (BMI) Body weight Body temperature Heart rate Systolic blood pressure Diastolic blood pressure Provider Name and Address Organization Details Last Updated DateTime 4 149.86 cm 32.9 kg/m2 55342.2 6 g 97.2 [degF] 64 /min 190 mm[Hg] 99 mm[Hg] Rhonda Abdi [facility] 4 09:32:16 Social History Question Answer Notes LastModified by Organizat ion Details LastModified Time Tobacco Smoking Status Former Smoker Magdalena Rodriguezrachel robert [facility] 06/17/2016 09:22:25 What Was The [...] SNOMED-CT Code Diagnosis ICD10 Code Diagnosis Note [id number] MD TONY BARRAZA [place] [address] [place] [address] 06/17/2016 09:09:29 06/17/2016 10:47:30 [id number] MD TONY BARRAZA [address] [place] [address] 07/02/2016 11:14:06 07/02/2016 12:06:16 Postoperative visit 025733636 Z09 [id number] MD TONY BARRAZA [address] [place] [address] 08/31/2016 10:38:41 08/31/2016 16:40:36 Postoperative visit 643048056 Z09 [id number] MD TONY BARRAZA [address] [place] [address] 03/20/2018 09:13:25 03/20/2018 13:47:08 Lesion of eyelid 108175599 H02.89 lower lid Combined f orm of senile cataract 28046949 H25.819 bilatweral Hypermetropia 55152287 H 52.03 Presbyopia 30216017 H52. 4 [id number] SAMY PARRA MD SURGERY SCHEDULE [address] [place] [address] 04/13/2018 07:01:44 04/13/2018 07:05:58 [id number] MD TONY BARRAZA [address] [place] [address] 04/24/2018 10:35:49 04/25/2018 10:37:33 Postoperative visit 397083487 Z09 [id number] MD TONY BARRAZA [place] [address] [place] [address] 05/23/2018 12:42:05 05/23/2018 17:07:15 Postoperative visit 691345181 Z09 [id number] MD TONY BARRAZA [address] [place] [address] 11/13/2018 10:32:39 11/14/2018 10:11:05 History of malignant neoplasm of skin 296792707 Z85.828 left lower lid [id number] SAMY PARRA [facility] [address] [place],[address] [place] [address] 05/28/2019 09:21:49 05/28/2019 12:46:55 Combined form of senile cataract 19629967 H25.819 bilatweral Hypermetropia 94186962 H 52.03 Presbyopia 44028490 H52. 4 [id number] SAMY PARRA MD OPHTHALMO [facility] [address] [place],[address] [place] [address] 06/02/2020 08:51:27 06/02/2020 13:16:23 Combined form of senile cataract 58129810 H25.819 bilatweral Bilateral hyperopia of eyes 2452163528 49021 H52.03 History of malignant neoplasm of skin 506058668 Z85.828 LLL [id number] NATHAN GARDNER MD OPHTHALMO [address] [place],[address] [place], [place] [address] 06/08/2021 08:56:40 06/08/2021 16:35:58 Basal cell carcinoma of lower eyelid 220215353 C44.111 s/p removal - call for changes/pr oblemsrecformerly [facility] 1 year Incipient senile cataract 151696631 H25.469 [id number] MD DELVIN MARQUIS [facility] [employer] CL[facility] [address] [place] [address] 10/05/2021 13:17:26 10/12/2021 09:48:37 Hyperparathyroidism 67448185 E21.3 [id number] MD DELVIN MARQUIS [facility] [address] [place] [address] 11/02/2021 09:38:20 11/02/2021 11:46:52 Parathyroid adenoma 356743926 D35.1 - Parathyroi d CT 10/19/21 = [id number] of the right tracheoeso phageal groove, characteri stic of a right inferior lobe parathyroi d adenoma; thyroid U/S was essentiall y clear . 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 Observatio n versus injection discussed [id number] MD DELVIN MARQUIS [employer] [address] [place] [address] 02/01/2022 09:21:30 02/01/2022 10:27:04 Emmanuel thyroiditis 84961327 E06.3 Via blood test and biopsy of thyroid nodule; On Levothyrox ine Primary hyperparathyroidism 19692895 E21.0 Status post right superior parathyroi dectomy 12/16/2021 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 Observatio n versus injection discussed; Voice is improving and she wishes to defer injection [id number] MD DELVIN MARQUIS [facility] [address] [place] [address] 05/10/2022 08:42:45 05/10/2022 10:02:22 Hyperthyroidism 87920078 E05.90 [id number] MD DELVIN MARQUIS [facility] [address] [place] [address] 06/07/2022 08:58:07 06/07/2022 13:34:15 Hyperthyroidism 43494650 E05.90 Resolved Hyperparathyroidism 6699 9008 E21.3 Resolved Autoimmune disease 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 009 M35.9 [id number] NATHAN GARDNER MD OPHTHALMO [place] [address] [place] [address] 08/09/2022 13:01:02 08/09/2022 15:32:54 Basal cell carcinoma of lower eyelid 794983353 C44.111 previouss/ p removal - call for changes/pr oblemsrech german 1 year Incipient senile cataract 258314315 H25.099 progressin g, OS>ODdiscu ssed option of ce - pt would like trial mr todayreche ck 1 year [id number] DEAN DICKINSON MD [facility] [address] [place] [address] 10/04/2022 08:46:41 10/04/2022 13:40:04 Emmanuel thyroiditis 62437218 E06.3 - Via blood test and biopsy of thyroid nodule; On Levothyrox ine Bilateral tinnitus 91249 59126 102 H93.13 Recommend audiogram next visit History of primary hyperparathyroidism 0637572067 9106 Z86.39 Status post thyroidect adolfo [id number] NATHAN GARDNER MD OPHTHALMO [facility] [address] [place] [address] 09/07/2023 13:59:45 09/07/2023 15:10:49 Incipient senile cataract 297180021 H25.099 stablecont inue mr Basal cell carcinoma of lower eyelid 612375447 C44.111 previouss/ p removal - call for changes/pr oblemsrech german 1 year [id number] MD DELVIN MARQUIS [facility] [address] [place] [address] 12/15/2023 09:23:19 12/15/2023 13:43:19 Hypothyroidism 71974723 E03.9 History of Emmanuel' s in past Primary hyperparathyroidism 03701746 E21.0 Status post right superior parathyroi dectomy 12/16/2021 [id number] NATHAN GARDNER MD OPHTHALMO [facility] [address] [place] [address] 09/10/2024 09:40:46 09/10/2024 11:50:02 Incipient senile cataract 678776810 H25.099 stable new mr today Basal cell carcinoma of lower eyelid 033809791 C44.111 stables/p removal - call for changes/pr oblemsrec german 1 year Health Concerns Section Related Observation LastModified by Organization Detai ls LastModified Time None Recorded Concern Status LastModified by Organization Details LastModified Time None Recorded Advance Directives Directive None Recorded Payers Insurance Date Sequence Insurance Name Policy Number Policy Walsh Covered Member ID Walsh Member ID Guarantor Name 11/21/2024 2 [email or web address] OF [facility] Tanna L Small [id number] Tanna L Small 11/21/2024 2 [employer] (MEDICARE SUPPLEMENT) Tanna L Small Tanna L Small 11/21/2024 2 [employer] (MEDICARE SUPPLEMENT) Tanna L Small [id number] Tanna L Small 11/21/2024 1 [place] Tanna L Small [id number] Tanna L Small 11/21/2024 2 [employer] INS[employer]ANCE [email or web address] (MEDICARE SUPPLEMENT) Tanna L Small [id number] Tanna L Small Notes Date Note Type Note Provider Name and Address Organization Details Recorded Time 08/09/2022 text/html p/t reports good health p/t reports no changes in eye health p/t reports jul.08 with a visit to urgent care center for cough p/t reports after taking medication prescribed at urgent care center, OU red and irritated NATHAN GARDNER MD [address] [place] [address], [address], [facility] 08/09/2022 15:19:53 10/04/2022 text/html Tanna visits [...] which has not helped symptoms[place], [address], [facility] 10/04/2022 15:10:57 12/15/2023 text/html Tanna visits [...] post right superior parathyroidectomy 2021. [place], [address], [facility] 12/15/2023 18:18:50 OBGyn Episode No OBEpisode recorded.
--- OUTSIDE RECORDS SUMMARY | 2024-12-31 13:52 | XMS_ITS | Encounter Summary ---
Author Organization [facility] Address [address] [place] [address] Care Team Providers Care Emergency Room Specialist Name Role Phone Pcp, No Primary Care Provider Unavailabl e Reason for Visit * Reason Onset Date Comments Results 09/27/2024 Encounter Details Date Type Department Care Team (Late st Contact Info) Description 09/27/2024 Results Follow-Up [facility] Endocrinology [address] [place] [address] Skylar Galeana MD [address] [facility] [address] [place] [address] Results Social History Tobacco Use [...] VM. Sent MyChart 09.27.2024 Skylar Galeana MD Scutcher Tender of Endocrinology, Diabetes and Metabolism [facility] documented in this encounter Plan of Treatment Upcoming Encounters Date Type Department Care Team (Late st Contact Info) Description 04/01/2025 10:20 AM EDT Office Visit [facility] [address] [facility] [address], [address] [place] [address] Skylar Galeana MD [address] [facility] [address] [place] [address] documented as of this encounter Visit Diagnoses Not on filedocumented in this encounter Additional Health Concerns Assessment Noted Time A fall risk assessment has been complete d for the patient 09/26/2024 10:45 AM EDT A Body Mass Index follow-up plan has been documented for the patient 09/26/2024 11:25 AM EDT documented as of this encounter Care Teams Emergency Room Specialist Relationship Specialty Start Date End Date Pcp, [place] [address] PCP - General Family Medicine 12/27/23 documented as of this encounter
[2024-12-31 15:43] LABS: Chloride 103 mmol/L (98-107); Sodium 140 mmol/L (136-145)
[2024-12-31 15:44] LABS: Potassium 5.5 mmoL/L (3.5-5.1)
[2024-12-31 15:46] LABS: Anion Gap 12.5 mEq/L (5-15); Blood Urea Nitrogen 27 mg/dl (7-17); Carbon Dioxide 30 mmol/L (22.0-30.0); Estimated Glomerular Filt Rate 48 ml/min (>60); GFR (African American) 58 ML/MIN (>60)
[2024-12-31 15:47] LABS: Calcium 10.2 mg/dl (8.4-10.2); Chol/HDL Ratio 4.1 (1-3.5); Cholesterol 174 mg/dl (140-200); Glucose 70 mg/dl (74-100); HDL Cholesterol 42 mg/dl (40-60); Triglycerides 129 mg/dl (30-150); VLDL Cholesterol 26 mg/dL (0-40)
[2024-12-31 15:58] LABS: Direct LDL Cholesterol 87.65 mg/dL (100-129)
[2024-12-31 16:07] LABS: 25-OH Vitamin D, Total 43.2 ng/mL (30-100)
[2024-12-31 16:08] LABS: Free T4 (Free Thyroxine) 1.33 ng/dl (0.78-2.19)
[2024-12-31 16:17] LABS: Thyroid Stimulating Hormone 1.11 uIU/mL (0.465-4.68)
[2025-01-01 08:12] LABS: Testosterone,Total 8 ng/dL (3-67)
[2025-01-01 16:22] LABS: Calcium, Ionized 5.4 mg/dL (4.5-5.6)
[2025-01-03 16:23] LABS: Testosterone,Free 0.4 pg/mL (0.0-4.2)
== END 2024-12-31 23:59 | disposition home or self-care (01) ==
PROVIDERS: PCP Family Medicine; Visit Provider Internal Medicine
DX: E83.52 Hypercalcemia (principal); E83.42 Hypomagnesemia; E66.811 Obesity, class 1; I07.1 Rheumatic tricuspid insufficiency; I65.29 Occlusion and stenosis of unspecified carotid artery; R94.31 Abnormal electrocardiogram [ECG] [EKG]; E03.9 Hypothyroidism, unspecified; I11.9 Hypertensive heart disease without heart failure
CPT/HCPCS: 36415; 80048; 80061; 82306; 82330; 84402; 84403; 84439; 84443

== ENCOUNTER 2025-01-07 10:39 | Outpatient (CLI) | payer MEDICARE, SELFPAY ==
[2025-01-07 20:27] LABS: Alanine Aminotransferase 24 U/L (12-78); Albumin Level 4.3 g/dl (3.5-5.0); Albumin/Globulin Ratio 1.5 (1.1-1.8); Alkaline Phosphatase 97 U/L (38-126); Anion Gap 17.0 mEq/L (5-15); Aspartate Amino Transferase 34 U/L (14-36); Bilirubin,Total 0.6 mg/dl (0.2-1.3); Blood Urea Nitrogen 25 mg/dl (7-17); Calcium 9.5 mg/dl (8.4-10.2); Carbon Dioxide 26 mmol/L (22.0-30.0); Chloride 103 mmol/L (98-107); Creatinine,Serum 1.10 mg/dl (0.52-1.04); Estimated Glomerular Filt Rate 48 ml/min (>60); GFR (African American) 58 ML/MIN (>60); Globulin 2.8 g/dL (1.3-3.2); Glucose 85 mg/dl (74-100); Potassium 5.0 mmoL/L (3.5-5.1); Sodium 141 mmol/L (136-145); Total Protein,Serum 7.1 g/dl (6.3-8.2)
--- OUTSIDE RECORDS SUMMARY | 2025-01-08 07:39 | XMS_ITS | Encounter Summary ---
Author Organization [facility] Address [address] [place] [address] Care Team Providers Care Staff Combat Information Center Officer Name Role Phone Pcp, No Primary Care Provider Unavailabl e Reason for Visit * Reason Onset Date Comments Results 09/27/2024 Encounter Details Date Type Department Care Team (Late st Contact Info) Description 09/27/2024 Results Follow-Up [facility] Endocrinology [address] [place] [address] Skylar Galeana MD [address] [facility] [address] [place] [address] Results Social History Tobacco Use [...] VM. Sent MyChart 09.27.2024 Skylar Galeana MD Director Apparel of Endocrinology, Diabetes and Metabolism [facility] documented in this encounter Plan of Treatment Upcoming Encounters Date Type Department Care Team (Late st Contact Info) Description 04/01/2025 10:20 AM EDT Office Visit [facility] [employer] [facility] [address], [address] [place] [address] Skylar Galeana MD [address] [facility] [address] [place] [address] documented as of this encounter Visit Diagnoses Not on filedocumented in this encounter Additional Health Concerns Assessment Noted Time A fall risk assessment has been complete d for the patient 09/26/2024 10:45 AM EDT A Body Mass Index follow-up plan has been documented for the patient 09/26/2024 11:25 AM EDT documented as of this encounter Care Teams Staff [employer] Officer Relationship Specialty Start Date End Date Pcp, [place] [address] PCP - General Family Medicine 12/27/23 documented as of this encounter
--- OUTSIDE RECORDS SUMMARY | 2025-01-08 07:39 | XMS_ITS | Data Portability ---
Author Organization [facility] BRADY Sanchez [place] CLOSED Address [address] [place] [address] Care Team Providers Care Animal Behaviourist Name Role Phone NATHAN GARDNER State Appellate Clerk NILTON LUKE Draw Bench Operator SAMY STAFFORD Primary Care Provider Assessment [...] By Organization Details Last Modified Time 10/04/2022 [id number] 1. T4, T3, CA, Ionized CA, PTH, TSH and thyroid antibodies obtained in office today. 2. Tinnitus management discussed with patient. Such as using ear protection to prevent further hearing loss, utilizing white noise at night when sleeping etc. DISCONTINUE TAKING MECLIZINE 3. f/u 1 y gosetinsky Not available 10/04/2022 15:10:42 12/15/2023 [id number] 1. Referred to Endocrinology & Endocrine Surgeon [...] 10.4 mg/dL 8.6-10 .2 high Not Available [facility] [address] [place] [address], [address], 10/04/2022 18:53:13 10/05/19 23 10/04/2022 T4 (THYR OXINE ) T4 (thyroxine) 5.95 ug/dL 4.50-1 1.70 normal Not Available [facility] [address] [place] [address], [address], 10/04/2022 19:05:19 10/05/19 23 10/04/2022 TSH TSH 49.900 uIU/m L 0.270- 4.200 high Not Available [facility] [address] [place] [address], [address], 10/04/2022 19:05:20 10/05/19 23 10/04/2022 T3, TOTAL T3, total 77 NG/dL 80-200 low Not Available [facility] [address] [place] [address], [address], 10/04/2022 19:05:22 10/05/1910/04/2022 PTH, INTAC T WITH [...] ===== ===== ===== ===== ==== Not Available [facility] [address] [place], [address], 10/04/2022 19:22:51 10/05/19 23 10/04/2022 PTH, INTAC T WITH CA calcium 9.7 mg/dL 8.6-10 .2 normal Not Available [facility] [address] [place], [address], 10/04/2022 19:22:51 10/05/19 23 10/05/2022 THYRO GLOBU MARISA AB thyroglobuli n Ab 240 IU/mL < or = 1 high TEST PERFO RMED AT: [facility] [address] [place] [address] ANTHO [place] V SD S Not Available [facility] [address] [place], [address], 10/05/2022 13:22:03 10/05/19 23 10/06/2022 IONIZ ED CALCI UM ionized calcium 5.2 mg/dL 4.7-5. 5 normal TEST PERFO RMED AT: [facility] [place] [address] [place] [address] ANTHO [place] V SD S Not Available [facility] [address] [place], [address], 10/06/2022 18:31:56 10/21/19 23 10/13/2022 CT, neck, soft tissu e, w/wo contr ast [place] [address] [facility] [place] [address] Patien t Name: TANNA Weiner t : [...] 320 (1 x 100 mL bottle of [facility] [address]49- 1323-1 1). None was wasted and discar [...] Codie Mas MD on 023 5:26 PM [email or web address] [facility]iology [address] [place], [address], 10/22/2022 16:07:58 12/20/19 24 11/22/2023 US, thyro id No observ ation record ed. BARCODE Not Available 2023 14:38:42 Result Notes Documentation Provider Name and Address Organization Details Recorded Time Ct, Neck, Soft Tissue, W/wo Contrast : [address] [place] [address] Patient Name: TANNA NÚÑEZ Patient : 1945 [...] 320 (1 x 100 mL bottle of [facility] [address]-63). None was wasted and discarded. 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 7 07:04:16 Bilateral age-relat ed nuclear cataracts 12677372304 9100 Active 2015 From Automated Load;Prov ider: Samy Parra;Stat us: Active Not Available [facility] 7 07:04:16 Excess skin of eyelid 106712177 Active 2015 From Automated Load;Prov ider: Samy Parra;Stat us: Active Not Available [facility] 7 07:12:43 Hyperpara thyroidis m 44556955 Active 2021 DEAN DICKINSON MD [address] [place] [address], [address] , [place] [facility] 2 13:15:11 Emmanuel thyroidit is 03631980 Active 2021 DEAN DICKINSON MD [address] [place], [address] , [facility] 13:15:29 Problem Notes None recorded. Procedures Surgical History Date Name Laterality Status Provider Name and Address Organization Details Recorded Time 12/17/19 22 Ears/Nose/Throat Surgery completed Florecita Linn [facility] 12/31/2021 15:22:36 04/13/20 18 excision of basal cell carcinoma completed [facility] 04/24/2018 12:31:21 03/20/20 18 Biopsy Eyelid(s) completed SAMY PARRA MD [address] [place], [address], [facility] 03/20/2018 13:39:55 06/09/20 16 Blepharoplasty completed [facility] 06/17/2016 09:23:23 Appendectomy completed [facility] 06/17/2016 09:22:43 Imaging Results None recorded. Procedure [...] Updated DateTime 08/09/2022 149.86 cm Lakia Allen [facility] 14:10:42 Date Recorded Body height Provider Name an d Address Organization Details Last Updated DateTime 09/07/2023 149.86 [facility] 09/07/2023 14:01:56 Date Recorded Body height Provider Name an d Address Organization Details Last Updated DateTime 09/10/2024 149.86 cm Dean Taylor [facility] 09/10/2024 10:32:35 Date Recorded Body height Body mass index (BMI) Body weight Body temperature Heart rate Systolic And Diastolic Provider Name and Address Organization Details Last Updated DateTime 149.86 cm 33.8 kg/m2 21262.7 3 g 97.2 [degF] 54 /min 138/78 mm[Hg] Cookie Amanda [facility] 3 08:58:17 Date Recorded Body height Body mass index (BMI) Body weight Body temperature Heart rate Systolic And Diastolic Provider Name and Address Organization Details Last Updated DateTime 4 149.86 cm 32.9 kg/m2 64207.2 6 g 97.2 [degF] 64 /min 190/99 mm[Hg] Rhonda Abdi [facility] 4 09:32:16 Social History Question Answer Notes LastModified by Organizat [employer] Details LastModified Time Tobacco Smoking Status Former Smoker Magdalena Rodriguezrachel robert [facility] 06/17/2016 09:22:25 What Was The Date Of Your Most Recent Tobacco Screening? 11/13/2018 8 Information not available 08/21/2019 Has Tobacco Cessation [...] available 06/17/2016 09:22:12 Medical History Condition Response Lazy Eye N Age-related Macular Degeneration N Cataract Y Glasses/Contacts Y Glaucoma N RD/retinal tear N Diabetic Eye Disease N Diabetes N Eye Trauma N Double Vision N Ocular trauma N Gynecological HistoryNo gynecological history recorded. Obstetrics History GPAL:G 0 P 0 0 0 0 Past Encounters Encounter ID Performer Location Encounter Start Date Encounter Closed Date Diagnosis/Indication Diagnosis SNOMED-CT Code Diagnosis ICD10 Code Diagnosis Note [id number] MD TONY BARRAZA [place] [address] [place] [address] 06/17/2016 09:09:29 06/17/2016 10:47:30 [id number] MD TONY BARRAZA [place] [address] [place] [address] 07/02/2016 11:14:06 07/02/2016 12:06:16 Postoperative visit 217894694 Z09 [id number] MD TONY BARRAZA [place] [address] [place] [address] 08/31/2016 10:38:41 08/31/2016 16:40:36 Postoperative visit 295967141 Z09 [id number] MD TONY BARRAZA [address] [place] [address] 03/20/2018 09:13:25 03/20/2018 13:47:08 Lesion of eyelid 286068582 H02.89 lower lid Combined f orm of senile cataract 28833278 H25.819 bilatweral Hypermetropia 57292415 H 52.03 Presbyopia 07469967 H52. 4 [id number] SAMY PARRA MD SURGERY SCHEDULE [address] [place] [address] 04/13/2018 07:01:44 04/13/2018 07:05:58 [id number] MD TONY BARRAZA [address] [place] [address] 04/24/2018 10:35:49 04/25/2018 10:37:33 Postoperative visit 963411731 Z09 [id number] MD TONY BARRAZA [place] [address] [place] [address] 05/23/2018 12:42:05 05/23/2018 17:07:15 Postoperative visit 957152720 Z09 [id number] MD TONY BARRAZA [place] [address] [place] [id number] 11/13/2018 10:32:39 11/14/2018 10:11:05 History of malignant neoplasm of skin 167558227 Z85.828 left lower lid [id number] SAMY PARRA MD OPHTHALMO [address] ,[facility] FLOOR [place] [address] 05/28/2019 09:21:49 05/28/2019 12:46:55 Combined form of senile cataract 17497618 H25.819 bilatweral Hypermetropia 23454250 H 52.03 Presbyopia 57080073 H52. 4 [id number] SAMY PARRA MD OPHTHALMO [place] [address] [place],[address] [place] [address] 06/02/2020 08:51:27 06/02/2020 13:16:23 Combined form of senile cataract 25065654 H25.819 bilatweral Bilateral hyperopia of eyes 8575444448 26072 H52.03 History of malignant neoplasm of skin 895002911 Z85.828 LLL [id number] NATHAN GARDNER MD [facility] [address] [place],[address] [place] [address] 5 06/08/2021 08:56:40 06/08/2021 16:35:58 Basal cell carcinoma of lower eyelid 170272016 C44.111 s/p removal - call for changes/[facility] Incipient senile cataract 743364377 H25.941 [id number] MD DELVIN MARQUIS [facility] Kristin [facility] CLOSED [address] [place] [address] 10/05/2021 13:17:26 10/12/2021 09:48:37 Hyperparathyroidism 48576177 E21.3 [id number] MD DELVIN MARQUIS [facility] [address] [place] [address] 11/02/2021 09:38:20 11/02/2021 11:46:52 Parathyroid adenoma 051177998 D35.1 - Parathyroi d CT 10/19/21 = [id number] of the right tracheoeso phageal groove, characteri stic of a right inferior lobe parathyroi d adenoma; thyroid U/S was essentiall y clear . 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 Observatio n versus injection discussed [id number] MD DELVIN MARQUIS [facility] N [facility] CLOSED [address] [place] [address] 02/01/2022 09:21:30 02/01/2022 10:27:04 Emmanuel thyroiditis 20284648 E06.3 Via blood test and biopsy of thyroid nodule; On Levothyrox ine Primary hyperparathyroidism 34723555 E21.0 Status post right superior parathyroi dectomy 12/16/2021 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 Observatio n versus injection discussed; Voice is improving and she wishes to defer injection [id number] MD DELVIN MARQUIS [facility] Kristin [facility] CL[facility] [address] [place] [address] 05/10/2022 08:42:45 05/10/2022 10:02:22 Hyperthyroidism 20025303 E05.90 [id number] MD DELVIN MARQUIS [facility] N [facility] CLOSED [address] [place] [address] 06/07/2022 08:58:07 06/07/2022 13:34:15 Hyperthyroidism 03031501 E05.90 Resolved Hyperparathyroidism 6699 9008 E21.3 Resolved Autoimmune disease 08267 009 M35.9 [id number] NATHAN GARDNER MD OPHTHALMO [facility] [address] [place] [address] 08/09/2022 13:01:02 08/09/2022 15:32:54 Basal cell carcinoma of lower eyelid 586487572 C44.111 previouss/ p removal - call for changes/pr oblemsrech german 1 year Incipient senile cataract 835561402 H25.099 progressin g, OS>ODdiscu ssed option of ce - pt would like trial mr todayreche ck 1 year [id number] MD DELVIN MARQUIS ENT [facility] CLOSED [address],[place] [address] 10/04/2022 08:46:41 10/04/2022 13:40:04 Emmanuel thyroiditis 28458940 E06.3 - Via blood test and biopsy of thyroid nodule; On Levothyrox ine Bilateral tinnitus 69920 74453 102 H93.13 Recommend audiogram next visit History of primary hyperparathyroidism 2474628135 9106 Z86.39 Status post thyroidect adolfo [id number] NATHAN GARDNER MD OPHTHALMO [facility] [address] ,[address] [place] [address] 09/07/2023 13:59:45 09/07/2023 15:10:49 Incipient senile cataract 060304469 H25.099 stablecont inue mr Basal cell carcinoma of lower eyelid 345847243 C44.111 previouss/ p removal - call for changes/pr oblemsrech german 1 year [id number] MD DELVIN MARQUIS ENT [address] [place] [address] 12/15/2023 09:23:19 12/15/2023 13:43:19 Hypothyroidism 19644731 E03.9 History of Emmanuel' s in past Primary hyperparathyroidism 32516786 E21.0 Status post right superior parathyroi dectomy 12/16/2021 [id number] NATHAN GARDNER MD [facility]MO [facility] [address] [place] [address],[address] [place] [address] 09/10/2024 09:40:46 09/10/2024 11:50:02 Incipient senile cataract 298241981 H25.099 stable new mr today Basal cell carcinoma of lower eyelid 186610317 C44.111 stables/p removal - call for changes/pr oblemsrec german 1 year Health Concerns Section Related Observation LastModified by Organization Detai ls LastModified Time None Recorded Concern Status LastModified by Organization Details LastModified Time None Recorded Advance Directives Directive None Recorded Payers Insurance Date Sequence Insurance Name Policy Number Policy Walsh Covered Member ID Walsh Member ID Guarantor Name 11/21/2024 2 [employer] INSURANCE [facility] Tanna L Small [id number] Tanna L Small 11/21/2024 2 [employer] (MEDICARE SUPPLEMENT) Tanna L Small Tanna L Small 11/21/2024 2 [employer] (MEDICARE SUPPLEMENT) Tanna L Small [id number] Tanna L Small 11/21/2024 1 [place]ICARE[place] Tanna L Small [id number] Tanna L Small 11/21/2024 2 [employer] (MEDICARE SUPPLEMENT) Tanna L Small [id number] Tanna L Small Notes Date Note Type Note Provider Name and Address Organization Details Recorded Time 08/09/2022 text/html p/t reports good health p/t reports no changes in eye health p/t reports jul.08 with a visit to urgent care center for cough p/t reports after taking medication prescribed at urgent care center, OU red and irritated NATHAN GARDNER MD [facility] [place], [address], [facility] 08/09/2022 15:19:53 10/04/2022 text/html Tanna visits [...] helped symptoms. DEAN DICKINSON MD [facility] [place], [address], [facility] 10/04/2022 15:10:57 12/15/2023 text/html Tanna visits [...] parathyroidectomy 2021. DEAN DICKINSON MD [facility] [place], [address], [facility] 12/15/2023 18:18:50 OBGyn Episode No OBEpisode recorded.
--- OUTSIDE RECORDS SUMMARY | 2025-01-08 07:39 | XMS_ITS | Clinical Summary ---
Author Organization Healthcare Address [address] [place] [address] Care Team Providers Care Traveling Operator Name Role Phone Pcp, No Primary [...] Description 04/01/2025 10:20 AM EDT Office Visit [facility] [address], [address] [place] [address] Skylar Galeana MD [address] [facility] [address] [place] [address] Health Maintenance Due Date Last Done Comments [facility]-Hepatitis C Screening 1945 [facility]-Medicare Annual Wellness (AWV) 1945 [facility]-Infant/Child/Adol SDOH Screenings 1945 [facility]- SDOH Screenings 1964 [facility]-Adult SDOH Screenings 1963 [facility]-Pneumococcal Vaccine: 50 + Years (1 of 1 - PCV) 1996 [facility]-Zoster Vaccines (1 of 2) 1996 [facility]-DTaP,Tdap,and Td Vaccine s (1 - Tdap) 09/05/1996 09/04/1996 [id number] Vaccine (3 - Moderna risk series) 10/08/2020 09/10/2020, 08/13/2020 [facility]-RSV Vaccine: 60+ Years o r (1 - 1-dose 75+ series) 2021 [facility]-Bone Density Scan 02/07/2025 02/08/2024 [facility]-Influenza Vaccine (#1) 2025 [facility]-Depression Screening 03/21/2025 03/21/2024 [facility]-Obesity Intervention [...] Health Maintenance Insurance MEDICARE [employer] Care Teams Traveling Operator Relationship Specialty Start Date End Date Pcp, Mayra [address] [place] [address] PCP - General Family Medicine 12/27/23
== END 2025-01-07 23:59 | disposition home or self-care (01) ==
LOC: LAB.DROPOF 01-08 07:38
PROVIDERS: PCP Family Medicine; Visit Provider Family Medicine
DX: E87.5 Hyperkalemia (principal)
CPT/HCPCS: 80053

== ENCOUNTER 2025-01-31 10:10 | Outpatient (CLI) | payer MEDICARE, SELFPAY ==
[2025-01-31 15:01] LABS: Albumin Level 3.4 g/dl (3.5-5.0); Chloride 105 mmol/L (98-107); Potassium 4.1 mmoL/L (3.5-5.1); Sodium 137 mmol/L (136-145)
[2025-01-31 15:04] LABS: Alanine Aminotransferase 22 U/L (12-78); Albumin/Globulin Ratio 0.9 (1.1-1.8); Alkaline Phosphatase 102 U/L (38-126); Anion Gap 7.1 mEq/L (5-15); Aspartate Amino Transferase 36 U/L (14-36); Bilirubin,Total 0.4 mg/dl (0.2-1.3); Blood Urea Nitrogen 17 mg/dl (7-17); Carbon Dioxide 29 mmol/L (22.0-30.0); Creatinine,Serum 0.80 mg/dl (0.52-1.04); Estimated Glomerular Filt Rate 69 ml/min (>60); GFR (African American) 84 ML/MIN (>60); Globulin 3.7 g/dL (1.3-3.2); Total Protein,Serum 7.1 g/dl (6.3-8.2)
[2025-01-31 15:05] LABS: Calcium 10.2 mg/dl (8.4-10.2); Glucose 83 mg/dl (74-100)
--- OUTSIDE RECORDS SUMMARY | 2025-02-01 13:48 | XMS_ITS | Clinical Summary ---
Author Organization Healthcare Address [address] [place] [address] Care Team Providers Care Help Desk Specialist Name Role Phone Pcp, No Primary [...] Description 04/01/2025 10:20 AM EDT Office Visit [facility] [address], [address] [place] [address] Skylar Galeana MD [address] [facility] [address] [place] [address] Health Maintenance Due Date Last Done Comments [facility]-Hepatitis C Screening 1945 [facility]-Medicare Annual Wellness (AWV) 1945 [facility]-/Child/Adol SDOH Screenings 1945 [facility]- SDOH Screenings 1964 [facility]-Adult SDOH Screenings 1964 [facility]-Pneumococcal Vaccine: 50 + Years (1 of 1 - PCV) 1996 [facility]-Zoster Vaccines (1 of 2) 1996 [facility]-DTaP,Tdap,and Td Vaccine s (1 - Tdap) 09/05/1996 09/04/1996 [id number] Vaccine (3 - Moderna risk series) 10/08/2020 [...] Health Maintenance Insurance MEDICARE AET[employer] Care Teams Help Desk Specialist Relationship Specialty Start Date End Date Pcp, Mayra [address] [place] [address] PCP - General Family Medicine 12/27/23
== END 2025-01-31 23:59 | disposition home or self-care (01) ==
LOC: LAB.DROPOF 02-01 13:46
PROVIDERS: PCP Family Medicine; Visit Provider Family Medicine
DX: E87.5 Hyperkalemia (principal); E83.52 Hypercalcemia; E83.42 Hypomagnesemia
CPT/HCPCS: 80053

== ENCOUNTER 2025-05-23 12:53 | Outpatient (CLI) | payer MEDICARE, SELFPAY ==
[2025-05-23 15:07] LABS: Hematocrit 41.6 % (37.0-47.0); Hemoglobin 13.7 g/dL (12.2-16.2); Immature Granulocytes % 0.1 %; Mean Corpuscular HGB Conc 32.9 g/dL (31.8-35.4); Mean Corpuscular Hemoglobin 30.2 pg (27.0-31.2); Mean Corpuscular Volume 91.8 fl (81-99); Nucleated Red Blood Cells % 0 %; Platelet Count 301 K/mm3 (142-424); Red Blood Count 4.53 M/mm3 (4.20-5.40); Red Cell Distribution Width-SD 44.6 fL; White Blood Count 8.5 K/mm3 (4.8-10.8)
[2025-05-23 15:44] LABS: Alanine Aminotransferase 27 U/L (12-78); Albumin Level 4.4 g/dl (3.5-5.0); Albumin/Globulin Ratio 1.4 (1.1-1.8); Alkaline Phosphatase 122 U/L (38-126); Anion Gap 11.7 mEq/L (5-15); Aspartate Amino Transferase 37 U/L (14-36); Bilirubin,Total 0.4 mg/dl (0.2-1.3); Blood Urea Nitrogen 24 mg/dl (7-17); Calcium 10.9 mg/dl (8.4-10.2); Carbon Dioxide 26 mmol/L (22.0-30.0); Chloride 105 mmol/L (98-107); Cholesterol 169 mg/dl (140-200); Creatinine,Serum 0.90 mg/dl (0.52-1.04); Estimated Glomerular Filt Rate 60 ml/min (>60); GFR (African American) 73 ML/MIN (>60); Globulin 3.1 g/dL (1.3-3.2); Glucose 85 mg/dl (74-100); HDL Cholesterol 49 mg/dl (40-60); Potassium 4.7 mmoL/L (3.5-5.1); Sodium 138 mmol/L (136-145); Total Protein,Serum 7.5 g/dl (6.3-8.2); Triglycerides 112 mg/dl (30-150)
[2025-05-23 16:01] LABS: Free T4 (Free Thyroxine) 1.43 ng/dl (0.78-2.19)
[2025-05-23 16:13] LABS: Thyroid Stimulating Hormone 2.71 uIU/mL (0.465-4.68)
== END 2025-05-23 23:59 | disposition home or self-care (01) ==
LOC: LAB 12:54
PROVIDERS: PCP Family Medicine; Visit Provider Family Medicine
DX: E03.9 Hypothyroidism, unspecified (principal); R10.13 Epigastric pain; I10 Essential (primary) hypertension
CPT/HCPCS: 80053; 80061; 83013; 83014; 84439; 84443; 85025

== ENCOUNTER 2025-05-24 14:08 | Outpatient (CLI) | payer MEDICARE, SELFPAY ==
--- OUTSIDE RECORDS SUMMARY | 2025-05-24 14:11 | XMS_ITS | Clinical Summary ---
Author Organization Healthcare Address [address] [place] [address] Care Team Providers Care Insulation Worker Name Role Phone Pcp, No Primary [...] Care Team (Late st Contact Info) Description 09/30/2025 11:40 AM EDT Office Visit [facility] [address], [address] [place] [address] Skylar Galeana MD [address] [facility] [address] [place] [address] Health Maintenance Due Date Last Done Comments [facility]-Hepatitis C Screening 1945 [facility]-Medicare Annual Wellness (AWV) 1945 [facility]-/Child/Adol SDOH Screenings 1945 [facility]- SDOH Screenings 1964 [facility]-Adult SDOH Screenings 1964 [facility]-Pneumococcal Vaccine: 50 + Years (1 of 1 - PCV) 1996 [facility]-Zoster Vaccines (1 of 2) 1996 [facility]-DTaP,Tdap,and Td Vaccine s (1 - Tdap) 09/05/1996 09/04/1996 [id number] Vaccine (3 - Moderna risk series) 10/08/2020 [...] Health Maintenance Insurance MEDICARE AET[employer] Care Teams Insulation Worker Relationship Specialty Start Date End Date Pcp, No [address] [place] [address] PCP - General Family Medicine 12/27/23
[2025-05-24 15:03] LABS: Calcium 10.5 mg/dl (8.4-10.2)
== END 2025-05-24 23:59 | disposition home or self-care (01) ==
LOC: LAB 14:09
PROVIDERS: PCP Family Medicine; Visit Provider Internal Medicine
DX: I65.29 Occlusion and stenosis of unspecified carotid artery (principal); E03.9 Hypothyroidism, unspecified; M47.812 Spondylosis without myelopathy or radiculopathy, cervical region; E83.52 Hypercalcemia; E83.42 Hypomagnesemia; E66.811 Obesity, class 1; I07.1 Rheumatic tricuspid insufficiency; R94.31 Abnormal electrocardiogram [ECG] [EKG]; I11.9 Hypertensive heart disease without heart failure
CPT/HCPCS: 36415; 82310; 84402; 84403